=== PATIENT | female | born 1940 | race Caucasian/White ===

== ENCOUNTER 2019-11-23 00:17 | Outpatient (CLI) | payer OTHER, SELFPAY ==
[2019-11-23 18:39] LABS: SARS-CoV-2 RNA PCR Negative
== END 2019-11-23 00:18 | disposition home or self-care (01) ==
LOC: ANHCOVIDDT 00:17
PROVIDERS: PCP Internal Medicine; Visit Provider Internal Medicine Gastroenterology
DX: Z01.812 Encounter for preprocedural laboratory examination (principal); Z20.828 Contact with and (suspected) exposure to other viral communicable diseases
CPT/HCPCS: 87635; C9803; U0003

== ENCOUNTER 2019-11-25 00:29 | Day surgery (SDC) | payer OTHER, SELFPAY ==
[2019-11-18 13:40] VITALS: BMI 20.6
[2019-11-25 06:18] VITALS: BP 174/87; PULSE 76; RESP 16; TEMP 36.5; O2SAT 100; BMI 20.4
[2019-11-25] MEDS: LACTATED RINGERS 1,000 ML 150 ML IV CONT (06:44)
--- NOTE | 2019-11-25 07:03 | PM.HPGS ---
History of Present Illness History of Present Illness Consent: Risks, benefits, and alternatives have been discussed and questions answered. Patient agrees to proceed with procedure. Chief complaint: duodenal ulcer Narrative: Marilyn Stephenson is a 79 year old W female Referred for gastroscopy for follow-up of peptic ulcer disease. Patient is diagnosed with a large duodenal ulcer in June of this year. Her NSAIDs with. However she has continued Dr. in 325 mg daily. She stopped her Protonix approximately 2 months after her diagnosis so this would of been in August of this year. Patient is asymptomatic. 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 History of benign breast biopsy HLD (hyperlipidemia) HTN (hypertension) Kidney stone At 35-39 y/o Knee fracture Knee cap Osteoarthritis of foot Pulmonary embolism Skin cancer Stage 3 chronic kidney disease Wrist fracture, bilateral Surgical History Surgical History History of appendectomy History of partial thyroidectomy History of tonsillectomy Social History Social History Smoking status: Former smoker Second hand tobacco smoke exposure: No Smoking end date: 06/23/84 Alcohol intake: current Gender identity (if verbalized by the patient): Female Meds Home Medications and Allergies Home Medications Medication Instructions Recorded Confirmed Type aspirin [Ecotrin] 325 mg PO DAILY 06/14/19 11/18/19 History carbidopa-levodopa 1 tablet PO BID 06/14/19 11/18/19 History ezetimibe-simvastatin [Vytorin 1 tablet PO USEASDIRECTD 06/14/19 11/18/19 History 10-80] febuxostat [Uloric] 40 mg PO DAILY 06/14/19 11/18/19 History furosemide [Lasix] 20 mg PO DAILY 06/24/19 11/18/19 History methylprednisolone [Medrol (Corey)] See Rx Instructions .ROUTE 07/16/19 11/18/19 Rx .COMPLEX #21 each phenazopyridine [Pyridium] 100 mg PO TID PRN #3 tablet 07/16/19 11/18/19 Rx sulfamethoxazole-trimethoprim 1 tablet PO Q12H 3 Days #6 tablet 07/16/19 11/18/19 Rx [Bactrim DS] colchicine 0.6 mg PO PRN PRN 11/18/19 11/18/19 History febuxostat [Uloric] 40 mg PO USEASDIRECTD 11/18/19 11/18/19 History Allergies Allergy/AdvReac Type Severity Reaction Status Date / Time aspirin Allergy Unknown Unknown Verified 11/25/19 06:30 latex Allergy Unknown Unknown Verified 11/25/19 06:30 Vital Signs Vital Signs - 24 hr 11/25/19 06:18 Temperature 36.5 C Pulse Rate 76 Respiratory Rate 16 Blood Pressure 174/87 H Pulse Oximetry 100 Exam Const: Orientation/consciousness: patient oriented x3 Resp: Auscultation: clear to auscultation bilaterally Cardio: Rate: regular rate Rhythm: regular rhythm Heart sounds: no murmurs GI: GI Palp: Yes Soft to palpation, No Tenderness to palpation present (GI), Yes No hepatosplenomegaly present and No Palpable mass present Auscultation: normal bowel sounds Neuro: General: patient oriented x3 and no focal motor deficits Extrem: General: no pedal edema Assessment and Plan Additional Plan Gastroscopy for follow-up of peptic ulcer disease
--- NOTE | 2019-11-25 07:05 | WPDANESEPPF ---
Anes - Initial Pre Proc Eval Procedure: Operation Date: 11/25/19 07:30 Proposed Procedures p Esophagogastroduodenoscopy - Baljit Escamilla MD Date/Time: 11/25/19 07:05 Surgeon: Baljit Escamilla MD Pre Op Diagnosis: duodenal ulcer Patient Data Age: 79 Gender: F Height: 5 ft Weight: 47.5 kg Last Vital Signs Temp 97.7 F 11/25/19 06:18 Pulse 76 11/25/19 06:18 Resp 16 11/25/19 06:18 BP 174/87 H 11/25/19 06:18 Pulse Ox 100 11/25/19 06:18 Allergies Allergy/AdvReac Type Severity Reaction Status Date / Time aspirin Allergy Unknown Unknown Verified 11/25/19 06:30 latex Allergy Unknown Unknown Verified 11/25/19 06:30 Home Medications Medication Instructions Recorded Confirmed Type aspirin [Ecotrin] 325 mg PO DAILY 06/14/19 11/18/19 History carbidopa-levodopa 1 tablet PO BID 06/14/19 11/18/19 History ezetimibe-simvastatin [Vytorin 1 tablet PO USEASDIRECTD 06/14/19 11/18/19 History 10-80] febuxostat [Uloric] 40 mg PO DAILY 06/14/19 11/18/19 History furosemide [Lasix] 20 mg PO DAILY 06/24/19 11/18/19 History methylprednisolone [Medrol (Corey)] See Rx Instructions .ROUTE 07/16/19 11/18/19 Rx .COMPLEX #21 each phenazopyridine [Pyridium] 100 mg PO TID PRN #3 tablet 07/16/19 11/18/19 Rx sulfamethoxazole-trimethoprim 1 tablet PO Q12H 3 Days #6 tablet 07/16/19 11/18/19 Rx [Bactrim DS] colchicine 0.6 mg PO PRN PRN 11/18/19 11/18/19 History febuxostat [Uloric] 40 mg PO USEASDIRECTD 11/18/19 11/18/19 History Patient hx anesthesia problems: none Family hx anesthesia problems: none PMFSH Past Medical History Medical History Acute ulcer of stomach Anemia Progressively after a year of B12 injections Bladder infection CHF (congestive heart failure) 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 History of benign breast biopsy HLD (hyperlipidemia) HTN (hypertension) Kidney stone At 35-39 y/o Knee fracture Knee cap Osteoarthritis of foot Pulmonary embolism Skin cancer Stage 3 chronic kidney disease Wrist fracture, bilateral Surgical History Surgical History History of appendectomy History of partial thyroidectomy History of tonsillectomy Social History Social History Smoking status: Former smoker Second hand tobacco smoke exposure: No Smoking end date: 06/23/84 Alcohol intake: current Gender identity (if verbalized by the patient): Female Anes - Eval Final PreProcedure Day of Procedure 11/25/19 07:05 Patient weight: normal Heart: regular rate and rhythm Lungs: clear to auscultation Airway: Mallampati scale class II Neurological: alert and oriented Last oral intake: >/= 8 hours ASA classification: III Emergent: no Anesthetic plan: proceed Anesthesia type and monitoring: general GIVS and standard monitoring Informed Consent: The patient's anesthetic plan and its attendant risks and benefits were discussed with the patient/family/POA. Questions were solicited and answers provided to the satisfaction of the patient/family/POA.
[2019-11-25 07:45] VITALS: BP 148/80; PULSE 85; RESP 17; O2SAT 100
[2019-11-25 07:55] VITALS: BP 148/78; PULSE 73; RESP 16; O2SAT 100
[2019-11-25 07:59] VITALS: BP 156/82; PULSE 80; RESP 16; O2SAT 99
== END 2019-11-25 08:16 | disposition home or self-care (01) ==
PROVIDERS: PCP Internal Medicine; Visit Provider Internal Medicine Gastroenterology
PROC: 0DJ08ZZ Inspection of Upper Intestinal Tract, Via Natural or Artificial Opening Endoscopic (ICD-10-PCS; CPT 43235; principal; 2019-11-25 07:30)
DX: Z09 Encounter for follow-up examination after completed treatment for conditions other than malignant neoplasm (principal); K26.7 Chronic duodenal ulcer without hemorrhage or perforation; K29.30 Chronic superficial gastritis without bleeding; I50.9 Heart failure, unspecified; E78.5 Hyperlipidemia, unspecified; I13.0 Hypertensive heart and chronic kidney disease with heart failure and stage 1 through stage 4 chronic kidney disease, or unspecified chronic kidney disease; N18.3 Chronic kidney disease, stage 3 (moderate); Z86.711 Personal history of pulmonary embolism; Z79.82 Long term (current) use of aspirin; Z87.891 Personal history of nicotine dependence
CPT/HCPCS: 43239; 88305; 88342; J2001; J2704; J7120

== ENCOUNTER 2021-02-12 13:02 | Outpatient (CLI) | payer OTHER, SELFPAY | END 2021-02-12 13:03 | disposition home or self-care (01) | LOC: ANHAUDASC 13:04 | PROVIDERS: PCP Internal Medicine; Visit Provider Internal Medicine | DX: H90.3 Sensorineural hearing loss, bilateral (principal) | CPT/HCPCS: 92557; 92567 ==

== ENCOUNTER 2021-03-07 13:30 | Emergency (ER) | payer OTHER, SELFPAY ==
--- NOTE | ~2021-03-07 | XR_ITS ---
EXAMINATION: XR femur LT min 2V EXAM DATE: 03/07/2021 15:47 INDICATION: Fall, left lateral femur pain/swelling. TECHNIQUE: Left femur frontal and lateral projections of the proximal aspect, frontal and lateral pro jections of the lower aspect for review. Correlation is made to pelvic x-ray 06/01/2019. FINDINGS: There are no acute left femur fractures or dislocations identified. There is no subcutaneo us gas. Soft tissue swelling/hematoma along the lateral aspect of the thigh subcutaneous fat. Scatte red femoral arterial sclerosis. There is mild to moderate left hip primary osteoarthritis. There are no radiopaque foreign bodies. IMPRESSION: 1. Left femur exam without acute osseous findings. 2. Soft tissue swelling. Reviewed, dictated and finalized at location B.
--- NOTE | 2021-03-07 15:29 | ED.LOWEXIN ---
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 History of benign breast biopsy HLD (hyperlipidemia) HTN (hypertension) Kidney stone At 35-39 y/o Knee fracture Knee cap Osteoarthritis of foot Pulmonary embolism Skin cancer Stage 3 chronic kidney disease Wrist fracture, bilateral Surgical History Surgical History History of appendectomy History of partial thyroidectomy History of tonsillectomy Social History Social History Smoking status: Former smoker Second hand tobacco smoke exposure: No Smoking end date: 06/23/84 Alcohol intake: current Alcohol use details: Glass of wine per day Gender identity (if verbalized by the patient): Female MDM - Extremity Injury (Lower) Imaging Data Attestation: I personally reviewed and interpreted this imaging study as follows: My impression: soft tissue swelling, no fracture of left femur Radiologist's impression: Sign [facility] [place] [address] [phone] XRay ReportSigned Patient: Marilyn Stephenson RDOB: 1940MR#: [id number]/Sex: 80 / FAcct:[id number]: EXPGLEN ADM Date: 03/07/21Attending Dr: Ordering Physician: Herminia Hughes APN Date of Service: 03/07/21 Procedure(s): XR femur LT min 2V Accession Number(s): [id number] cc: Armando Higgins MD; Herminia Hughes APN~ EXAMINATION: XR femur LT min 2V EXAM DATE: 03/07/2021 15:47 INDICATION: Fall, left lateral femur pain/swelling. TECHNIQUE: Left femur frontal and lateral projections of the proximal aspect, frontal and lateral projections of the lower aspect for review. Correlation is made to pelvic x-ray 06/01/2019. FINDINGS: There are no acute left femur fractures or dislocations identified. There is no subcutaneous gas. Soft tissue swelling/hematoma along the lateral aspect of the thigh subcutaneous fat. Scattered femoral arterial sclerosis. There is mild to moderate left hip primary osteoarthritis. There are no radiopaque foreign bodies. IMPRESSION: 1. Left femur exam without acute osseous findings. 2. Soft tissue swelling. Reviewed, dictated and finalized at location B. Dictated By: Oneal Greene MD 03/07/21 1548 Signed By: <Electronically signed by Oneal Greene MD in OV> Critical Care Time Critical Care Time Critical Care Time: No Discharge Plan Discharge Clinical Impression: Skin tear Traumatic hematoma of left thigh Qualifiers: Encounter type: initial encounter Qualified Code(s): S70.12XA - Contusion of left thigh, initial encounter Skin tear of left forearm without complication Qualifiers: Encounter type: initial encounter Qualified Code(s): S51.812A - Laceration without foreign body of left forearm, initial encounter Patient Disposition: Home, Self-Care Condition: Stable Instructions: Skin Tear (ED), Hematoma (ED) Additional Instructions: keep the area clean and dry No continuous water contact like dishes or swimming Cleanse wounds Hibiclens or liquid Dial soap once daily Bacitracin antibiotic ointment to the wound area cover with Telfa dressing of choice over Telfa watch for infection--redness, swelling, drainage follow up with PCP for wound assessm
--- NOTE | 2021-03-07 15:55 | PC.NURSE ---
See downtime documentation for nurses notes etc.
== END 2021-03-07 15:46 | disposition home or self-care (01) ==
PROVIDERS: Emergency Provider Registered Nurse; PCP Internal Medicine
DX: S51.812A Laceration without foreign body of left forearm, initial encounter (principal); S70.12XA Contusion of left thigh, initial encounter; I13.0 Hypertensive heart and chronic kidney disease with heart failure and stage 1 through stage 4 chronic kidney disease, or unspecified chronic kidney disease; N18.30 Chronic kidney disease, stage 3 unspecified; I50.9 Heart failure, unspecified; Z87.891 Personal history of nicotine dependence; W18.30XA Fall on same level, unspecified, initial encounter
CPT/HCPCS: 73552; 99213; G0463

== ENCOUNTER 2021-05-02 12:50 | Outpatient (CLI) | payer OTHER, SELFPAY ==
--- NOTE | ~2021-05-02 | MR_ITS ---
EXAMINATION: MR lumbar spine wo con DATE: 05/02/2021 13:50 INDICATION: Lumbar radiculopathy. TECHNIQUE: Magnetic resonance imaging (MRI) of the lumbar spine was performed without intravenous con trast. Sequences included sagittal T2-weighted FSE, sagittal T2-weighted FS FSE, sagittal T1-weighted FSE, and axial T2-weighted FSE. COMPARISON: Lumbar spine MRI 12/27/2017 FINDINGS: There is 16 degrees levoscoliosis of lumbar spine. There is 3 mm retrolisthesis of L2 on L3 and 3 mm anterolisthesis of L3 on L4. There are Schmorl's nodes at multiple levels. There is moderat yasmeen decreased disc height at T12-L1, severely decreased disc height at L1-L2 and L2-L3, moderately de creased disc height at L3-L4, and severely decreased disc height at L4-L5 and L5-S1 with endplate rem odeling. There is ligamentum flavum hypertrophy at the disc levels in lumbar spine. The distal spinal cord signal intensity is normal. The conus medullaris is at L1. The following disc levels are specif ically discussed: T12-L1: The disc is bulging. There is no facet joint osteoarthritis. There is mild bilateral neural f oraminal stenosis. There is mild central canal stenosis. L1-L2: The disc is bulging and has an annular fissure. There is mild left facet joint osteoarthritis. There is mild right and moderate left neural foraminal stenosis. There is mild central canal stenosi s. L2-L3: The disc is bulging. There is moderate right and mild left facet joint osteoarthritis. There i s mild right and moderate left neural foraminal stenosis. There is mild central canal stenosis. L3-L4: The disc is bulging and has an annular fissure. There is severe bilateral facet joint osteoart hritis. There is mild bilateral neural foraminal stenosis. There is mild central canal stenosis. L4-L5: The disc is bulging and has an annular fissure. There is severe bilateral facet joint osteoart hritis. There is moderate bilateral neural foraminal stenosis. There is mild central canal stenosis. L5-S1: The disc is bulging and has an annular fissure. There is moderate bilateral facet joint osteoa rthritis. There is mild bilateral neural foraminal stenosis. There is mild central canal stenosis. IMPRESSION: 1. Severe lumbar spondylosis, worsened from 12/27/2017. 2. Lumbar levoscoliosis. Reviewed, dictated and finalized at location A. [employer]OC[employer]ATE
== END 2021-05-02 12:51 | disposition home or self-care (01) ==
PROVIDERS: PCP Internal Medicine
DX: M47.26 Other spondylosis with radiculopathy, lumbar region (principal)
CPT/HCPCS: 72148

== ENCOUNTER 2021-11-12 07:54 | Outpatient (CLI) | payer OTHER, SELFPAY ==
--- NOTE | ~2021-11-12 | US_ITS ---
US renal BI 11/12/2021 08:58 Procedure: Realtime transabdominal ultrasound of the kidneys and bladder. Indication: Chronic kidney disease Comparison: CT dated 05/20/2019 Findings: Renal echotexture is normal bilaterally without hydronephrosis, contour deforming mass or r enal calculus. The right kidney measures 7.8 cm and left kidney measures 8.7 cm. Bladder within norm al limits. There is a complex partially cystic mass of the uterus. Dedicated pelvic ultrasound recomm ended for further assessment. Impression: 1: Unremarkable renal ultrasound. No stones, masses or hydronephrosis. 2: Complex partially cystic mass of the uterus. Cannot exclude malignancy. Recommend dedicated pelvic ultrasound for complete evaluation. Reviewed, dictated and finalized at location A. Impression: 1: Unremarkable renal ultrasound. No stones, masses or hydronephrosis. 2: Complex partially cystic mass of the uterus. Cannot exclude malignancy. Davi mmend dedicated pelvic ultrasound for complete evaluation.
[2021-11-12 09:16] LABS: Albumin Level 4.4 g/dL (3.5-5.1); Anion Gap 11 mmol/L (8-16); Blood Urea Nitrogen 34 mg/dL (7-17); Calcium 8.6 mg/dL (8.4-10.2); Carbon Dioxide 13 mmol/L (22-30); Chloride 113 mmol/L (98-107); Estimated Glomerular Filt Rate 43; Glucose 107 mg/dL (65-110); Phosphorus 4.9 mg/dL (2.5-4.5); Sodium 137 mmol/L (137-145)
[2021-11-12 09:16] LABS: Creatinine Urine 47.8 mg/dL; Total Protein Urine Random 20 mg/dL; Ur Ttl Prot Creatinine Ratio 0.42 mg/mg (0-0.20)
[2021-11-12 09:18] LABS: Sodium Urine Random 74 meq/L
[2021-11-12 09:28] LABS: Complement C3 113 mg/dL (88-165)
[2021-11-14 16:15] LABS: Albumin 4.1 g/dL (3.8-4.8); Alpha 1 Globulin 0.3 g/dL (0.2-0.3); Beta 1 Globulin 0.4 g/dL (0.4-0.6); Gamma Globulin 0.8 g/dL (0.8-1.7)
[2021-11-15 17:10] LABS: Anti Glomerular Basement Memb <1.0 AI (<1.0)
[2021-11-16 05:07] LABS: Total Protein/Creatinine Ratio 617 mg/g creat (21-161)
[2021-11-19 07:45] LABS: Anti Nuclear Antibody Titer 1:40 (Negative)
[2021-11-21 22:45] LABS: ANCA Screen Negative (Negative)
== END 2021-11-12 07:55 | disposition home or self-care (01) ==
PROVIDERS: PCP Family Medicine; Visit Provider Internal Medicine Nephrology
DX: N18.32 Chronic kidney disease, stage 3b (principal); D63.1 Anemia in chronic kidney disease
CPT/HCPCS: 36415; 76775; 80069; 82570; 83520; 84155; 84156; 84165; 84166; 84300; 86036; 86038; 86039; 86160; 86225

== ENCOUNTER 2021-11-27 16:03 | Outpatient (CLI) | payer OTHER, SELFPAY ==
--- NOTE | ~2021-11-27 | US_ITS ---
EXAMINATION: US pelvic complete w TV DATE: 11/27/2021 16:56 INDICATION: Pelvic mass. Comparison:No prior studies for comparison. TECHNIQUE: Multiple transabdominal and endovaginal sonographic images of the pelvis performed. FINDINGS: The uterus measures 10 x 4.5 x 6 cm. There is complex fluid and soft tissue masses along th e expected margin of the endometrium which is poorly defined. The ovaries are not visualized. No significant free fluid in the pelvis. There is no free fluid in the pelvis. There are no abnormal masses seen on either side. IMPRESSION: 1. Complex appearance to the endometrium containing fluid and multiple marginal masses. The different ial diagnosis includes polyps and carcinoma. Biopsy is recommended. Reviewed, dictated and finalized at location B. IMPRESSION: 1. Complex appearance to the endometrium containing fluid and multiple marginal masses. The differential diagnosis includes polyps and carcinoma. Biopsy is recommended.
== END 2021-11-27 16:04 | disposition home or self-care (01) ==
PROVIDERS: PCP Family Medicine; Visit Provider Internal Medicine Nephrology
DX: R19.00 Intra-abdominal and pelvic swelling, mass and lump, unspecified site (principal)
CPT/HCPCS: 76830; 76856

== ENCOUNTER 2022-01-11 00:52 | Day surgery (SDC) | payer OTHER, SELFPAY ==
--- NOTE | 2022-01-04 14:25 | PC.NURSE ---
Report to the Outpatient Waiting Room, entrance under the green pavilion located off [facility], at time 1000 on date 01/11/22 . [place] Time: _1200 . - You and your visitor will be asked a series of questions to screen for COVID 19 for your protection. - Only one visitor is allowed at this time. - The patient visitor is requested to leave or wait in car when not with patient. - A mask is required within the hospital. Patients may have clear liquids (water, carbonated beverages, clear teas, apple juice) until 3 hours prior to surgery with a maximum of 20 ounces. - No food from midnight until time of surgery - Infants may have breast milk until 4 hours before surgery, infant formula 6 hours prior to surgery. - Children will be allowed to drink immediately following surgery. If applicable, please bring a bottle or sippy cup to assist with drinking. Juice, water, soda, and popsicles are readily available. For infants on formula, please bring formula the day of surgery. Pacifiers are allowed. Take the following medications with a SIP of water the morning of surgery: __CARBIDOPA-LEVODOPA Medications to discontinue per physician NONE Date to take last dose Please no make-up, nail bulgarian, hairspray, perfume, deodorant, or body powder the day of surgery. No jewelry (including any body piercings) or valuables the day of surgery, leave them at home. Please take a shower or bath the night before, or the morning of, surgery with an antibacterial soap. Wear comfortable, loose fitting clothing. Children are encouraged to wear pajamas. - Jewelry must be removed prior to entering the operating room. Rings and piercings that are not removed may be cut off. - The hospital will not accept responsibility for valuables. - Please leave all valuables, including medications, at home the day of surgery. If you are going home after surgery, a licensed transportation driver must drive you home. - NO public transportation without another adult. - We recommend that an adult stay with you for 24 hours following discharge. - We also recommend that you do not drive, make important decision, drink alcoholic beverages, or take any drugs that were not prescribed by your health care provider for at least 24 hours after your discharge time. For Pediatric surgeries, we recommend two adults accompany the child home (only one inside the building at this time). Follow any additional instructions given to you from your surgeon. If you or anyone in your household have experienced Covid symptoms in the past week, please notify your surgeon or the nurse liaison at the phone number below for possible testing. Telephone instructions given to _PATIENT and asked if any additional questions and then verbalized understanding. Patient advised to call surgeon office or pre surgery nurse liaison [phone] if any additional questions.
[2022-01-04 14:33] VITALS: BMI 21.1
--- NOTE | 2022-01-10 16:47 | PM.IMHP ---
H&P: HPI History of Present Illness Date/Time: 01/10/22 16:47 Chief Complaint: PMB Narrative: Marilyn is a postmenopausal 81-year-old female who presented to see Dr. Santana for evaluation of an abnormal finding on BELL VALET ultrasound. The BELL VALET US was a follow-up from a renal ultrasound. On BELL VALET ultrasound it was noted that she has a complex appearance to the endometrium containing fluid and multiple marginal masses with a differential diagnosis including polyps or carcinoma. She does report that she had a hysteroscopy with polypectomy in the past, denies a h/o endometrial ablation. She denies pain or vaginal bleeding. 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 History of benign breast biopsy HLD (hyperlipidemia) HTN (hypertension) Kidney stone At 35-39 y/o Knee fracture Knee cap Osteoarthritis of foot Pulmonary embolism Skin cancer Stage 3 chronic kidney disease Wrist fracture, bilateral Surgical History Surgical History History of appendectomy History of partial thyroidectomy History of tonsillectomy Social History Social History Smoking packs per day: 2.5 Smoking cigarettes per day: 50.0 Years smoked: 22 Smoking pack-years: 55.00 Smoking status: Former smoker Tobacco type: cigarettes Second hand tobacco smoke exposure: No Smoking end date: 06/23/79 Alcohol intake: current Drinks per week: 7 Alcohol use details: WINE Substance use: never Substance use type: does not use Additional living arrangements comments: Gender identity (if verbalized by the patient): Female Sexual Orientation (if Verbalized by the Patient): Straight or Heterosexual Spiritual care concerns: No Meds Home Medications and Allergies Home Medications Medication Instructions Recorded Confirmed Type allopurinol 300 mg tablet 300 mg PO DAILY #90 tabs 10/23/20 01/04/22 Rx carbidopa 25 mg-levodopa 100 mg 1 tablet PO BID #180 tabs 10/05/21 01/04/22 Rx tablet furosemide 20 mg tablet 20 mg PO QAM 12/12/21 01/04/22 History colchicine 0.6 mg tablet 0.6 mg PO PRN PRN GOUT FLARE UP 01/04/22 01/04/22 History ezetimibe 10 mg-simvastatin 80 mg 1 tablet PO EVERY OTHER DAY 01/04/22 01/04/22 History tablet (Vytorin) Allergies Allergy/AdvReac Type Severity Reaction Status Date / Time aspirin Allergy Mild stomach Verified 01/07/22 08:35 pain latex Allergy Mild rash Verified 01/07/22 08:35 Exam Const: General: cooperative, comfortable and no acute distress Nutritional Appearance: obese Resp: Effort & Inspection: normal respiratory effort Cardio: Rate: regular rate GI: Inspection: normal to inspection GI Palp: No abdominal tenderness and Yes Soft to palpation : Other: deferred to OR Skin: General skin exam: normal color Neuro: General: patient oriented x3 Extrem: General: normal to inspection Psych: Appearance: grossly normal Affect: normal affect Attitude: cooperative Assessment and Plan Assessment and plan (1) Endometrial thickening on ultrasound: Code(s): R93.89 - Abnormal findings on diagnostic imaging of other specified body structures Status: Acute Plan - Proceed with hysteroscopy with dilation and curettage - Risks and benefits explained in detail and all questions answered.
[2022-01-11] VITALS (11 sets, daily range): BP systolic 84–204; BP diastolic 42–113; PULSE 73–96; RESP 11–22; TEMP 36.2–36.7; O2SAT 91–100
[2022-01-11] MEDS: ACETAMINOPHEN 500 MG TABLET 1000 MG PO (10:39)
[2022-01-11] MEDS: SODIUM CHLORIDE 0.9% IV 500 ML 30 ML IV CONT (10:55)
--- NOTE | 2022-01-11 11:25 | WPDANESEPPF ---
Anes - Initial Pre Proc Eval Procedure: Operation Date: 01/11/22 12:00 Proposed Procedures p Hysteroscopy Dilation and Curettage - Alaina Edmonds MD Date/Time: 01/11/22 11:25 Surgeon: Alaina Edmonds MD Pre Op Diagnosis: endometrial hyperplasia Patient Data Age: 81 Gender: F Height: 1.52 m Weight: 50 kg Last Vital Signs Temp 36.2 C L 01/11/22 11:07 Pulse 85 01/11/22 11:07 Resp 16 01/11/22 11:07 BP 155/99 H 01/11/22 11:07 Pulse Ox 100 01/11/22 11:07 O2 Del Method Room Air 01/11/22 11:07 Allergies Allergy/AdvReac Type Severity Reaction Status Date / Time aspirin Allergy Mild stomach Verified 01/11/22 10:27 pain latex Allergy Mild rash Verified 01/11/22 10:27 Home Medications Medication Instructions Recorded Confirmed Type allopurinol 300 mg tablet 300 mg PO DAILY #90 tabs 10/23/20 01/11/22 Rx carbidopa 25 mg-levodopa 100 mg 1 tablet PO BID #180 tabs 10/05/21 01/11/22 Rx tablet furosemide 20 mg tablet 20 mg PO QAM 12/12/21 01/11/22 History colchicine 0.6 mg tablet 0.6 mg PO PRN PRN GOUT FLARE UP 01/04/22 01/04/22 History ezetimibe 10 mg-simvastatin 80 mg 1 tablet PO EVERY OTHER DAY 01/04/22 01/11/22 History tablet (Vytorin) Laboratory Tests 01/11/22 10:33 PT Pending INR Pending APTT Pending Patient hx anesthesia problems: none Family hx anesthesia problems: none Results Review: All pre-operative results and documents have been reviewed as part of the pre-operative evaluation. 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 History of benign breast biopsy HLD (hyperlipidemia) HTN (hypertension) Kidney stone At 35-40 y/o Knee fracture Knee cap Osteoarthritis of foot Pulmonary embolism Skin cancer Stage 3 chronic kidney disease Wrist fracture, bilateral Surgical History Surgical History History of appendectomy History of partial thyroidectomy History of tonsillectomy Social History Social History Smoking packs per day: 2.5 Smoking cigarettes per day: 50.0 Years smoked: 22 Smoking pack-years: 55.00 Smoking status: Former smoker Tobacco type: cigarettes Second hand tobacco smoke exposure: No Smoking end date: 06/23/84 Alcohol intake: current Drinks per week: 7 Alcohol use details: Glass of wine per day Substance use: never Substance use type: does not use Living arrangements: with family Additional living arrangements comments: Gender identity (if verbalized by the patient): Female Sexual Orientation (if Verbalized by the Patient): Straight or Heterosexual Spiritual care concerns: No Anes - Eval Final PreProcedure Day of Procedure 01/11/22 11:25 Patient weight: normal Heart: regular rate and rhythm Lungs: decreased breath sounds Airway: Mallampati scale class III Neurological: other (alert) Last oral intake: >/= 8 hours ASA classification: III Emergent: no Anesthetic plan: proceed Anesthesia type and monitoring: general GIVS and standard monitoring Results Review: All pre-operative results and documents have been reviewed as part of the pre-operative evaluation. Informed Consent: The patient's anesthetic plan and its attendant risks and benefits were discussed with the patient/family/POA. Questions were solicited and answers provided to the satisfaction of the patient/family/POA.
--- NOTE | 2022-01-11 11:41 | WPDHPUPDATE1 ---
History and Physical Update Update Date/Time: 01/11/22 11:41 History and Physical has been reviewed, including an updated exam of the patient. There are NO changes in the patient's condition. Risks, benefits, and alternatives have been discussed and questions answered. Patient agrees to proceed with procedure.
[2022-01-11 11:52] LABS: INR 0.9; Prothrombin Time 12.2 Seconds (11.1-14.7)
[2022-01-11 11:53] LABS: Partial Thromboplastin Time 28.3 SECONDS (22.3-36.8)
--- NOTE | 2022-01-11 12:33 | SUR.OPER ---
culture given to BRAULIO Corley. Received in lab by Elva at [phone]
--- NOTE | 2022-01-11 13:22 | W.PM.PROC2 ---
Procedure Note - Detailed Date of Procedure 01/11/22 Pre-op Diagnosis Thickened endometrial lining on US Post-op Diagnosis Other (endometrial mass, uterine pyometra) Procedure Performed Hysteroscopy with D&C Surgeon Alaina Edmonds MD Anesthesia MAC Indications Marilyn is a postmenopausal 81yo who was undergoing imaging of her kidneys and was subsequently diagnosed with complex, thickened endometrial lining with fluid noted. Findings Uterus 8cm, cervix with hardening/friable mass from 10-2o'clock, purulent discharge noted after cervical dilation (culture sent), ~ 15cc of purulent fluid noted, endometrial cavity with thickened/polypoid mass noted; unable to visualized the fundus or tubal ostia. After gentle D&C, perforation noted, no bleeding or nearby omentum/bowel noted. Pt stable and decision was made to admit overnight for monitoring. Fluid deficit 30cc Description of Procedure Marilyn was taken to the operating room where she was placed under sedation without complications. She was then prepped and draped in the usual sterile fashion in the dorsal lithotomy position with her legs in low Sami stirrups. A time-out was performed and no preoperative antibiotics were indicated. A small bivalve speculum was placed in the vagina where the cervical changes were noted. The posterior lip of the cervix was grabbed with a single-tooth tenaculum. The uterus was sounded to 8 cm. The cervix was then easily and slowly dilated to allow for the hysteroscope. A significant amount of purulent discharge was then noted coming out of the uterus. A culture was collected. The small hysteroscope was advanced into the uterine cavity where polypoid mass was noted with small calcifications. No normal cavity architecture was noted and the bilateral tubal ostia were not visualized. Using a small curettage I gently palpated all areas of the uterus and had good resistance. A gentle curettage was performed, filling half a telfa. The curettage was removed from the uterus. The hysteroscope was once again advanced into the uterus which at this point I noticed yellow fat, and determined that uterine perforation had occurred. I examined the area and no bleeding was noted and no omentum or intestines or bladder were near the area of perforation. Her vitals remained stable and I decided that she would be placed in observation overnight. Sponge, lap, instrument, needle counts were correct at the end the procedure patient was awoken from anesthesia and taken to recovery in stable condition. Her was informed of the findings as well as the concern for uterine perforation due to necrotic or infected tissue which makes me concerned for a malignancy. We will keep her overnight with plans of antibiotic therapy and watching her hemoglobin counts. Estimated Blood Loss 5 Drains No Packing No Pathology Yes (rushed) Complications No immediate complications Condition Stable Disposition Observation [facility] Billing Surgery - Charge Forward: Surgery Billing
[2022-01-11] MEDS: fentaNYL CITRATE INJ (*CRX) 100 MCG/2 ML VIAL 25 MCG IV PUSH ×4 (13:27→13:55)
[2022-01-11] MEDS: hydrALAZINE HCL 20 MG/ML VIAL 5 MG IV PUSH (13:50)
[2022-01-11] MEDS: oxyCODONE HCL (*CRX) 5 MG TAB IR PO ×2 (15:00→21:16)
[2022-01-11] MEDS: ONDANSETRON INJ 4 MG/2 ML VIAL IV PUSH (15:00)
[2022-01-11 15:01] LABS: Hematocrit 40.6 % (37.0-47.0); Hemoglobin 12.7 g/dL (12.0-15.0); Mean Corpuscular HGB Conc 31.3 g/dl (32-36); Mean Corpuscular Hemoglobin 32.6 pg (26-34); Mean Corpuscular Volume 104.4 fl (80-100); Mean Platelet Volume 10.3 fl (7.4-10.4); Platelet Count Result 146 k/mm3 (150-375); Red Blood Count 3.89 M/mm3 (4.2-5.4); Red Cell Distribution Width 15.3 % (11.5-14.5)
[2022-01-11] MEDS: CARBIDOPA/LEVODOPA 25/100 MG TABLET 1 TABLET PO (19:00)
[2022-01-11] MEDS: AMOXICILLIN/CLAVULANATE K 875-125 MG TAB 1 TABLET PO (21:17)
[2022-01-12 03:45] VITALS: BP 100/47; PULSE 90; RESP 16; TEMP 37.1; O2SAT 91
[2022-01-12 05:19] LABS: Basophils Percent Auto 0.3 % (0.2-1.2); Eosinophils Absolute Auto 0.1 K/mm3 (0-0.3); Eosinophils Percent Auto 0.5 % (0-4.4); Hematocrit 34.1 % (37.0-47.0); Hemoglobin 10.6 g/dL (12.0-15.0); Immature Granulocyte Absolute 0.08 K/mm3 (0.00-0.031); Immature Granulocyte Percent A 0.5 % (0-0.5); Lymphocytes Absolute Auto 1.01 K/mm3 (0.9-3.2); Lymphocytes Percent Auto 6.8 % (18.3-44.2); Mean Corpuscular HGB Conc 31.1 g/dl (32-36); Mean Corpuscular Hemoglobin 32.2 pg (26-34); Mean Corpuscular Volume 103.6 fl (80-100); Mean Platelet Volume 10.3 fl (7.4-10.4); Monocytes Absolute Auto 0.9 K/mm3 (0.1-0.6); Monocytes Percent Auto 6.3 % (2.6-8.5); Neutrophils Absolute Auto 12.8 K/mm3 (1.3-6.7); Neutrophils Percent Auto 85.6 % (45.5-73.1); Platelet Count Result 142 k/mm3 (150-375); Red Blood Count 3.29 M/mm3 (4.2-5.4); Red Cell Distribution Width 15.5 % (11.5-14.5); White Blood Count 14.9 K/mm3 (4.5-10.0)
[2022-01-12 05:34] LABS: Anion Gap 5 mmol/L (8-16); Blood Urea Nitrogen 37 mg/dL (7-17); Calcium 8.8 mg/dL (8.4-10.2); Carbon Dioxide 26 mmol/L (22-30); Chloride 104 mmol/L (98-107); Estimated CRCL calculation 18 ml/min; Estimated Glomerular Filt Rate 31; Glucose 122 mg/dL (65-110); Potassium 4.3 mmol/L (3.4-5.0); Sodium 135 mmol/L (137-145)
[2022-01-12] MEDS: FUROSEMIDE 20 MG TABLET PO (06:53)
[2022-01-12] MEDS: DOCUSATE SODIUM 100 MG CAPSULE PO (06:53)
[2022-01-12] MEDS: AMOXICILLIN/CLAVULANATE K 875-125 MG TAB 1 TABLET PO (06:53)
[2022-01-12] MEDS: EZETIMIBE 10 MG TABLET PO (06:54)
[2022-01-12] MEDS: CARBIDOPA/LEVODOPA 25/100 MG TABLET 1 TABLET PO (06:54)
[2022-01-12] MEDS: oxyCODONE HCL (*CRX) 5 MG TAB IR PO (06:54)
[2022-01-12] MEDS: SIMVASTATIN 20 MG TABLET 80 MG PO (06:54)
[2022-01-12] MEDS: allopurinoL 300 MG TABLET PO (06:55)
[2022-01-12 06:58] VITALS: BP 92/60; PULSE 89; RESP 16; TEMP 36.8; O2SAT 93
--- NOTE | 2022-01-12 08:53 | PM.GYNPNOP ---
CHEMICAL TECHNICIAN - A/P Postoperative Procedures: Procedures Operation Date: 01/11/22 12:00 Actual Procedure Side Surgeon p Hysteroscopy Dilation and Curettage Alaina Edmonds MD Postoperative day: 1 Postoperative status: doing well Postoperative plan: routine post-op care and discharge Time Spent With Patient Time: Total time spent is greater than 50% in coordination of care (as documented) at patient's floor/unit and/or counseling patient: Time with patient: less than 15 minutes CHEMICAL TECHNICIAN- PN:Subj Post-Op Subjective Date/time seen: 01/12/22 08:53 Interval history: Marilyn reports feeling much better today. She still has some pain, feels tender . She reports the vaginal bleeding is light. She has tolerated diet, has a good appetite. She has voided, unsure if she's passed gas. Ambulated w/o issue. Ready to go home. Review of Systems Constitutional: Constitutional: Denies chills, Denies fever(s) and Denies headache(s) ENT: Denies dizziness and Denies headache(s) Cardiovascular: Cardiovascular: Denies chest pain, Denies palpitations and Denies dyspnea Respiratory: Respiratory: Denies cough and Denies dyspnea Gastrointestinal: Gastrointestinal: Denies nausea and Denies vomiting Neurologic: Denies dizziness and Denies headache(s) Endocrine: Endocrine: Denies palpitations Exam Const: General: cooperative, healthy appearing, comfortable and no acute distress Orientation/consciousness: patient oriented x3 Resp: Effort & Inspection: normal respiratory effort Auscultation: clear to auscultation bilaterally Cardio: Rate: regular rate GI: Inspection: non-distended GI Palp: Yes abdominal tenderness (appropriate) and Yes Soft to palpation Auscultation: normal bowel sounds Neuro: General: patient oriented x3 Extrem: General: normal to inspection Psych: Appearance: grossly normal Affect: normal affect Attitude: cooperative CHEMICAL TECHNICIAN - PN: Obj Data Vital Signs Vital Signs: Vital Signs - 24 hr 01/11/22 11:07 01/11/22 12:47 01/11/22 13:00 Temperature 97.2 F L 97.7 F Pulse Rate 85 80 76 Respiratory Rate 16 16 22 H Blood Pressure 155/99 H 175/105 H 190/88 H Pulse Oximetry 100 100 99 Oxygen Delivery Room Air Room Air Room Air 01/11/22 13:15 01/11/22 13:30 01/11/22 13:45 Temperature Pulse Rate 84 88 82 Respiratory Rate 12 11 L 12 Blood Pressure 196/88 H 204/113 H 184/97 H Pulse Oximetry 100 100 100 Oxygen Delivery Room Air Room Air Room Air 01/11/22 14:00 01/11/22 14:30 01/11/22 14:15 Temperature 97.5 F L Pulse Rate 76 73 73 Respiratory Rate 14 16 16 Blood Pressure 196/84 H 132/98 H Pulse Oximetry 98 99 99 Oxygen Delivery Room Air Room Air 01/11/22 20:00 01/11/22 23:45 01/12/22 03:45 Temperature 98.1 F 98.0 F 98.8 F Pulse Rate 96 90 90 Respiratory Rate 16 16 16 Blood Pressure 88/56 L 84/42 L 100/47 L Pulse Oximetry 94 91 91 Oxygen Delivery 01/12/22 06:58 01/12/22 06:58 Temperature 98.3 F Pulse Rate 89 Respiratory Rate 16 Blood Pressure 92/60 L Pulse Oximetry 93 Oxygen Delivery Room Air Intake/Output Intake/Output: Intake & Output 01/09/22 01/10/22 01/11/22 01/12/22 23:59 23:59 23:59 23:59 Intake Total 200 Output Total 200 Balance 0 Meds/Results Medications: Active Medications Generic Name Dose Route Start Last Admin Trade Name Miya PRN Reason Stop Dose Admin Acetaminophen 1,000 mg 01/11/22 14:13 Acetaminophen 500 Mg Tablet PO Q6H PRN Mild Pain (1-3) or Fever Allopurinol 300 mg 01/12/22 09:00 01/12/22 06:55 Allopurinol 300 Mg Tablet PO 300 mg DAILY ANABELA Administration Amoxicillin/Clavulanate Potassium 1 tablet 01/11/22 21:00 01/12/22 06:53 Amoxicillin/Clavulanate K 875-125 Mg Tab PO 01/18/22 20:59 1 tablet Q12HR ANABELA Administration Carbidopa/Levodopa 1 tablet 01/11/22 17:00 01/12/22 06:54 Carbidopa/Levodopa 25/100 Mg Tablet PO 1 tablet BID ANABELA Administration Colchicine 0.6 mg 01/11/22 14
== END 2022-01-12 09:36 | disposition home or self-care (01) ==
LOC: ANHSURGERY 10:02 → ANHOB2 14:15
PROVIDERS: PCP Family Medicine; Visit Provider Obstetrics & Gynecology
PROC: 0U5B8ZZ Destruction of Endometrium, Via Natural or Artificial Opening Endoscopic (ICD-10-PCS; CPT 58563; principal; 2022-01-11 12:00)
DX: D39.0 Neoplasm of uncertain behavior of uterus (principal); N71.9 Inflammatory disease of uterus, unspecified; N99.71 Accidental puncture and laceration of a genitourinary system organ or structure during a genitourinary system procedure; E78.5 Hyperlipidemia, unspecified; I13.0 Hypertensive heart and chronic kidney disease with heart failure and stage 1 through stage 4 chronic kidney disease, or unspecified chronic kidney disease; I50.9 Heart failure, unspecified; N18.30 Chronic kidney disease, stage 3 unspecified; D64.9 Anemia, unspecified; Z86.711 Personal history of pulmonary embolism; Z87.891 Personal history of nicotine dependence; Z87.11 Personal history of peptic ulcer disease
CPT/HCPCS: 58558; 36415; 80048; 85025; 85027; 85610; 85730; 87070; 87075; 87205; 88305; 88342; 99199; A9270; J0360; J2405; J2704; J3010; J7030; J7040

== ENCOUNTER 2022-04-12 16:30 | Inpatient (IN) | payer OTHER, SELFPAY ==
[2022-04-12] VITALS (16 sets, daily range): BP systolic 85–179; BP diastolic 51–140; PULSE 82–97; RESP 14–24; TEMP 36.6–36.8; O2SAT 97–100; BMI 20.7
--- NOTE | ~2022-04-12 | XR_ITS ---
EXAMINATION: XR hip RT 2V w AP pelvis DATE: 04/12/2022 17:33 INDICATION: Fall. TECHNIQUE: An anteroposterior view of the pelvis and 2 views of right hip were obtained. COMPARISON: Pelvis radiograph 06/01/2019 FINDINGS: There is lumbar levoscoliosis and severe spondylosis. No fracture. There is moderate osteoa rthritis of the hips. Clips overlie the pelvis. IMPRESSION: 1. Moderate osteoarthritis of the hips. Reviewed, dictated and finalized at location A.
--- NOTE | ~2022-04-12 | XR_ITS ---
EXAMINATION: XR elbow LT min 3V DATE: 04/12/2022 17:33 INDICATION: Left elbow pain. Fall. TECHNIQUE: 4 views of left elbow were obtained. COMPARISON: None. FINDINGS: Bone alignment is normal. No fracture. There is mild elbow joint osteoarthritis. There is a n elbow joint effusion. IMPRESSION: 1. Elbow joint effusion. No fracture identified. 2. Mild elbow joint osteoarthritis. Reviewed, dictated and finalized at location A.
--- NOTE | ~2022-04-12 | CT_ITS ---
EXAMINATION: CT brain wo con INDICATION: Transient alteration of awareness COMPARISON: None TECHNIQUE: Standard unenhanced head CT. The dose-length product (DLP) was 605.33 mGy-cm. The mA was a djusted according to patient size. Iterative reconstruction technique was employed. FINDINGS: There is right posterior parieto-occipital scalp soft tissue swelling. There is no acute in traparenchymal hemorrhage. No evidence of mass lesion. No evidence of acute infarction. There is mild periventricular and subcortical hypodensity probably related to small vessel ischemic disease. There is mild prominence of the sulci and ventricles related to cerebral atrophy. Intracranial calcified c erebral atherosclerosis is noted. There are no extra-axial collections. There is no mass effect or mi dline shift. Changes in the globes are likely from ocular lens surgery. The visualized sinuses and ma stoid air cells are well aerated. IMPRESSION: 1. Scalp soft tissue swelling without acute intracranial abnormality. 2. Age related findings. Reviewed, dictated and finalized at location B.
[2022-04-12 17:54] LABS: Eosinophils Absolute Auto 0.1 K/mm3 (0-0.3); Eosinophils Percent Auto 4.7 % (0-4.4); Hematocrit 26.1 % (37.0-47.0); Hemoglobin 8.5 g/dL (12.0-15.0); Immature Granulocyte Absolute 0.01 K/mm3 (0.00-0.031); Immature Granulocyte Percent A 0.4 % (0-0.5); Lymphocytes Absolute Auto 0.15 K/mm3 (0.9-3.2); Lymphocytes Percent Auto 5.9 % (18.3-44.2); Mean Corpuscular HGB Conc 32.6 g/dl (32-36); Mean Corpuscular Hemoglobin 32.7 pg (26-34); Mean Corpuscular Volume 100.4 fl (80-100); Mean Platelet Volume 8.8 fl (7.4-10.4); Monocytes Absolute Auto 0.3 K/mm3 (0.1-0.6); Monocytes Percent Auto 12.1 % (2.6-8.5); Neutrophils Percent Auto 76.9 % (45.5-73.1); Platelet Count Result 109 k/mm3 (150-375); Red Cell Distribution Width 15.7 % (11.5-14.5); White Blood Count 2.6 K/mm3 (4.5-10.0)
[2022-04-12 18:03] LABS: Anion Gap 8 mmol/L (8-16); Blood Urea Nitrogen 37 mg/dL (7-17); Calcium 7.6 mg/dL (8.4-10.2); Carbon Dioxide 26 mmol/L (22-30); Chloride 101 mmol/L (98-107); Estimated CRCL calculation 25 ml/min; Estimated Glomerular Filt Rate 48; Glucose 110 mg/dL (65-110); INR 1.1; Potassium 3.1 mmol/L (3.4-5.0); Prothrombin Time 13.3 Seconds (11.1-14.7); Sodium 135 mmol/L (137-145)
[2022-04-12 18:04] LABS: Partial Thromboplastin Time 24.9 SECONDS (22.3-36.8)
--- NOTE | 2022-04-12 18:45 | ED.FALL ---
HPI - Fall General Chief Complaint: Fall <Rolan Gao MD - Last Filed: 04/12/22 19:31> Stated Complaint: syncope, fall <Rolan Gao MD - Last Filed: 04/12/22 19:31> Time Seen by Provider: 04/12/22 16:32 <Rolan Gao MD - Last Filed: 04/12/22 19:31> History of Present Illness HPI Narrative: Patient is an 81-year-old female who presents ER after having a syncopal episode. She was walking with her walker and felt lightheaded like she might pass out. She then lost consciousness on the ground. went and assisted her up. She has been having pain in her right hip and left elbow since the fall. Patient reports she has history of low blood pressure and recurrent episodes of syncope. Most recent episode of syncope was in July. Had radiation therapy today for her cervical cancer. She had chemotherapy earlier in the week. She reports she was given IV fluids with potassium in it yesterday. She went to the hospital today and had an MRI performed. She reports she has been eating and drinking well otherwise. She also reports she recently got over a UTI for which she took ciprofloxacin. <Rolan Gao MD - Last Filed: 04/12/22 19:31> Related Data Home Medications: Home Medications Medication Instructions Recorded Confirmed furosemide 20 mg tablet 20 mg PO QAM 12/12/21 01/11/22 colchicine 0.6 mg tablet 0.6 mg PO PRN PRN GOUT FLARE UP 01/04/22 01/04/22 ezetimibe 10 mg-simvastatin 80 mg 1 tablet PO EVERY OTHER DAY 01/04/22 01/11/22 tablet (Vytorin) <Rolan Gao MD - Last Filed: 04/12/22 19:31> Allergies/Adverse Reactions: Allergies Allergy/AdvReac Type Severity Reaction Status Date / Time aspirin Allergy Mild stomach Verified 01/18/22 08:59 pain latex Allergy Mild rash Verified 01/18/22 08:59 <Rolan Gao MD - Last Filed: 04/12/22 19:31> PMFSH Past Medical History Medical History: Medical History (Updated 04/12/22 @ 20:31 by Nabeel Rubin MD) Acute ulcer of stomach Anemia Progressively after a year of B12 injections Bladder infection CHF (congestive heart failure) 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 History of benign breast biopsy HLD (hyperlipidemia) HTN (hypertension) Kidney stone At 35-40 y/o Knee fracture Knee cap Osteoarthritis of foot Pulmonary embolism Skin cancer Stage 3 chronic kidney disease Wrist fracture, bilateral <Rolan Gao MD - Last Filed: 04/12/22 19:31> Surgical History Surgical History: Surgical History (Updated 01/18/22 @ 09:04 by CHARO Reyes) History of appendectomy History of hysteroscopy (01/11/22) hscope D&C History of partial thyroidectomy History of tonsillectomy <Rolan Gao MD - Last Filed: 04/12/22 19:31> Social History Social History: Social History Smoking packs per day: 2.5 Smoking cigarettes per day: 50.0 Years smoked: 22 Smoking pack-years: 55.00 Smoking status: Former smoker Tobacco type: cigarettes Second hand tobacco smoke exposure: No Smoking end date: 06/23/79 Alcohol intake: current Drinks per week: 7 Alcohol use details: WINE Substance use: never Substance use type: does not use Additional living arrangements comments: Gender identity (if verbalized by the patient): Female Sexual Orientation (if Verbalized by the Patient): Straight or Heterosexual Spiritual care concerns: No <Rolan Gao MD - Last Filed: 04/12/22 19:31> Exam Narrative: GENERAL: Chronically ill-appearing, frail, and in no acute distress. HEAD: Normocephalic, 2 cm posterior scalp laceration. EYES: PERRL and EOMI. CHEST: Clear to auscultation. No respiratory distress. Tunneled line placement right chest wall. HEART: Regular rate and rhythm. Normal peripheral pulses. ABDOMEN: Soft, nontender, nondistended. EXTREMITIES: Left upper extremity with pain in the elbow
[2022-04-12] MEDS: SODIUM CHLORIDE 0.9% IV 500 ML 999 ML IV CONT (19:03)
[2022-04-12 19:34] LABS: Add Urine Microscopic? YES; Appearance Urine Cloudy (Clear); Bacteria Urine Trace /hpf; Bilirubin Urine Negative (Negative); Blood Urine 2+ (Negative); Color Urine Straw (Yellow); Glucose Urine UA Negative (Negative); Ketones Urine Negative (Negative); Leukocyte Esterase Ur 2+ LEU/UL (Negative); Mucus Urine Rare /lpf; Nitrate Urine Negative (Negative); Protein Urine 1+ mg/dL (Negative); RBC Urine 21-50 /hpf (0-2); Specific Grav Ur 1.013 (1.001-1.035); Squamous Epithelial Cell Urine Rare /hpf (Few); Urobilinogen Urine Negative mg/dL (<2.0); WBC Urine 21-30 /hpf
--- NOTE | 2022-04-12 19:46 | PC.NURSE ---
VORB per Dr. Gao 1000mg PO tylenol
[2022-04-12] MEDS: SODIUM CHLORIDE 0.9% IV 1,000 ML 999 ML IV CONT (19:50)
[2022-04-12] MEDS: ACETAMINOPHEN 500 MG TABLET 1000 MG PO (19:50)
--- NOTE | 2022-04-12 20:27 | PC.NURSE ---
EDP at bedside.
--- NOTE | 2022-04-12 20:27 | PM.IMHP ---
H&P: HPI History of Present Illness Date/Time: 04/12/22 20:27 Chief Complaint: syncope Narrative: This is an 81-year-old female with past medical history significant for Parkinson's, type 2 diabetes mellitus, dyslipidemia, cervical CA patient is currently undergoing chemotherapy she presented to the emergency room after having a syncopal episode while using her walker patient collapsed. patient was hypotensive at the time of EMS arrival as well as in emergency room.At this time is complaining of headache, hip pain, after the fall. patient denies any fevers, rigors, chills, has been nauseous due to chemotherapy treatment , has had a good appetite, no cough, no sputum production. preliminary workup was significant for hemoglobin was 8.5, hematocrit 26, a urinalysis showed 20-30 wbc's per high-power field. patient is been admitted for further evaluation management and treatment. CT of the head was reported as: IMPRESSION: 1. Scalp soft tissue swelling without acute intracranial abnormality. 2. Age related findings. x-ray of the hip was reported as: IMPRESSION: 1. Moderate osteoarthritis of the hips elbow x-ray was reported as: IMPRESSION: 1. Elbow joint effusion. No fracture identified. 2. Mild elbow joint osteoarthritis. Review of Systems Review of Systems: syncope and collapse while standing Constitutional: Constitutional: Denies chills, Reports fatigue, Denies fever(s), Reports malaise and Reports weakness Eyes: Eyes: Denies change in vision ENT: Denies dysphagia, Denies vertigo, Denies dizziness and Denies odynophagia Cardiovascular: Cardiovascular: Denies chest pain, Denies syncope, Denies irregular heart rhythm and Denies lightheadedness Respiratory: Respiratory: Denies chest congestion, Denies cough, Denies excessive phlegm production and Denies pain on inspiration Gastrointestinal: Gastrointestinal: Denies abdominal pain, Denies dyspepsia, Denies heartburn, Reports nausea and Denies vomiting Genitourinary: Genitourinary: Denies dysuria and Denies pelvic pain Musculoskeletal: Musculoskeletal: Reports myalgias and Reports arthralgias Integumentary/Breasts: Skin/Breast: Denies rash Neurologic: Denies focal weakness and Denies Sensory deficit (Neuro) Psychiatric: Psychiatric: Reports no additional psychiatric complaints and Reports as per HPI Endocrine: Endocrine: Denies cold intolerance, Denies flushing, Denies heat intolerance, Denies polyphagia, Denies polydipsia and Denies palpitations Hematologic/Lymphatic: Hematologic/Lymphatic: Reports no additional hematologic/lymphatic complaints and Reports as per HPI Allergic/Immunologic: Allergic/Immunologic: Reports no additional allergic/immunologic complaints and Reports as per HPI [facility] Past Medical History Medical History (Updated 04/13/22 @ 02:51 by Edna Henao MD) Acute ulcer of stomach Anemia Progressively after a year of B12 injections Bladder infection CHF (congestive heart failure) 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 History of benign breast biopsy HLD (hyperlipidemia) HTN (hypertension) Kidney stone At 35-39 y/o Knee fracture Knee cap Osteoarthritis of foot Pulmonary embolism Skin cancer Stage 3 chronic kidney disease Wrist fracture, bilateral Surgical History Surgical History (Updated 01/18/22 @ 09:04 by CHARO Reyes) History of appendectomy History of hysteroscopy (01/11/22) hscope D&C History of partial thyroidectomy History of tonsillectomy Social History Social History Smoking packs per day: 2.5 Smoking cigarettes per day: 50.0 Years smoked: 20 Smoking pack-years: 50.00 Smoking status: Former smoker Tobacco type: cigarettes Second hand tobacco smoke exposure: No Smoking end date: 06/23/79 Alcohol intake: current Drinks per week: 14 Alcohol use details: WINE Substance use: never Substance use type: does not use Additional sandra
--- NOTE | 2022-04-12 21:29 | PC.NURSE ---
Report called to margarita CONTEH at [phone].
--- NOTE | 2022-04-12 21:35 | ADMGEN ---
This patient, Marilyn Stephenson, was admitted to Medical Room 248-01. Patient/family oriented to hospital policies and general routines including ID bracelet, bed and alarms, visiting hours, pain management, procedures, bathroom and other care routines, personal items, smoking policy, room service/diet, and visiting hours. Information on how to activate the Rapid Response Team has been discussed. Patient/Family are encouraged to report perceived risks to care and to ask questions if they do not understand what they are told or what they should do.
[2022-04-12] MEDS: POTASSIUM CHLORIDE 20 MEQ TABLET 40 MEQ PO (22:13)
[2022-04-13] VITALS (9 sets, daily range): BP systolic 104–129; BP diastolic 64–78; PULSE 84–111; RESP 12–16; TEMP 36.3–36.8; O2SAT 95–97
--- NOTE | 2022-04-13 | ECHO_ITS ---
Patient Info Name: Marilyn Knight Organ Age: 81 years : 1940 Gender: Female Ht: 60 in Wt: 106 lbs BSA: 1.43 m2 BP: 104 / 64 mmHg Heart Rhythm: Sinus Rhythm Exam Date: 04/15/2022 2:30 PM Exam Location: [facility] Patient Status: Inpatient Admit Date: 04/13/2022 Staff Ordering Physician: Joel Salinas MD Fast Food Assistant Restaurant Manager: Taras Aguilera, JUSTIN, RT Attending Provider: Joel Salinas MD Exam Type: CA echo limited w contrast Study Info Limited two-dimensional transthoracic echocardiogram is performed with contrast. Summary 1. Limited study with limited views. Definity echo contrast enhancement administered. While regional wall motion assessment limited no clear wall motion abnormalities identified with images provided. 2. Left ventricular chamber dimension is normal. 3. Left ventricular systolic function is normal, estimated at 60-65%. 4. There is no increased left ventricular wall thickness. 5. Right ventricular chamber dimension is normal. 6. Right ventricular systolic function is normal. Left Ventricle Limited study with limited views. Definity echo contrast enhancement administered. While regional wall motion assessment limited no clear wall motion abnormalities identified with images provided. Left ventricular chamber dimension is normal. Left ventricular systolic function is normal, estimated at 60-65%. There is no increased left ventricular wall thickness. Right Ventricle Right ventricular chamber dimension is normal. Right ventricular systolic function is normal. Left Atria Left atrial chamber dimension is not well visualized. Right Atria Right atrial chamber dimension is not well visualized. Aortic Valve The aortic valve is not well visualized. Pulmonic Valve The pulmonic valve is not well visualized. Mitral Valve The mitral valve has not well visualized. Tricuspid Valve The tricuspid valve leaflets are not well visualized. Pericardium/Pleural The pericardium appears not well visualized. Aorta The aortic root size at the sinus of Valsalva is not well visualized. Ventricles Name Value Normal LV Dimensions 2D/MM IVS Diastolic Thickness (2D) 0.9 cm 0.6-1.0 LVID Diastole (2D) 4.8 cm 3.8-5.2 LVIW Diastolic Thickness (2D) 0.9 cm 0.6-0.9 LVID Systole (2D) 3.1 cm 2.2-3.5 LV Mass (2D Cubed) 145.56 g 67.00-162.00 LV Mass Index (2D Cubed) 102 g/m2 43-95 Relative Wall Thickness (2D) 0.37 LV Fractional Shortening/Ejection Fraction 2D/MM LV Fractional Shortening (2D) 37 % 27-45 LV EF (2D Teicholz) 66 % 54-74 LV Diastolic Volume (4C MOD) 106 ml LV EF (4C MOD) 63 % LV Diastolic Volume (2C MOD) 93 ml LV EF (2C MOD) 62 % LV Diastolic Volume (BP MOD) 102 ml 46-106 LV Diastolic Volume Index (BP MOD) 72 ml/m2 29-61 LV Systolic Volume (BP MOD) 37 ml 14-42 L
[2022-04-13 06:05] LABS: Glucose Point of Care 100 mg/dl (65-105)
--- NOTE | 2022-04-13 06:08 | ECG_ITS ---
Measurements Intervals [place] Rate: 100 P: 30 SC: 114 QRS: 6 QRSD: 87 T: 29 QT: 339 QTc: 439 Interpretive Statements SINUS TACHYCARDIA WITH SHORT SC INTERVAL NONSPECIFIC T-WAVE ABNORMALITY ABNORMAL RHYTHM ECG COMPARED TO ECG 06/01/2019 09:20:19 SINUS TACHYCARDIA NOW PRESENT Electronically Signed On 04-13-2022 9:04:05 CDT by Katia Zavaleta M.D.
--- NOTE | 2022-04-13 06:32 | PC.NURSE ---
Called into pt room by Carri Norton CNA, pt called to use the bedpan. Pt was aphasic when Carri entered the room. When assessing the patient she is using word salad, and pt does have aphasia which is a change. All other neuro checks appear normal. Rapid response called
--- NOTE | 2022-04-13 10:39 | PM.IMPN ---
Progress Note: A&P Assessment and Plan (1) Syncope: Code(s): R55 - Syncope and collapse Status: Acute Assessment and Plan: likely to be vasovagal IV fluid start at [address] on telemetry Recent admission with atrial fibrillation with rapid ventricular rate which converted to sinus rhythm spontaneously at discharge was started on Eliquis but she did not take it. Will place on telemetry Recent MRI done 04/12/2022: No abnormal enhancing brain lesion to suggest intracranial metastatic disease. A few punctate foci of diffusion restriction within bilateral occipital lobes which could represent punctate acute / subacute infarct versus artifact. No large vascular territory infarct. Will consult neurology Recent echocardiogram done on 03/29/2022 with ejection fraction 59% no regional wall motion abnormality. No intracranial masses or thrombi noted at the time. Will start PT OT (2) Effusion of elbow: Code(s): M25.429 - Effusion, unspecified elbow Status: Acute Assessment and Plan: local care (3) Laceration of scalp: Code(s): S01.01XA - Laceration without foreign body of scalp, initial encounter Status: Acute Assessment and Plan: local care (4) Acute UTI: Code(s): N39.0 - Urinary tract infection, site not specified Status: Acute Assessment and Plan: patient started on Rocephin recently treated with ciprofloxacin Urine culture with insignificant growth from 04/05/2022 Urine culture has been sent and will await urine culture (5) Chronic kidney disease, stage 3 (moderate): Qualifiers: Chronic kidney disease stage 3 subtype: stage 3a (GFR 45-59) Qualified Code(s): N18.31 - Chronic kidney disease, stage 3a Code(s): N18.3 - Chronic kidney disease, stage 3 (moderate) Status: Acute Assessment and Plan: continue to monitor (6) Megaloblastic anemia: Code(s): D53.1 - Other megaloblastic anemias, not elsewhere classified Status: Acute Assessment and Plan: follow-up in outpatient setting (7) Uterine cancer: Code(s): C55 - Malignant neoplasm of uterus, part unspecified Status: Acute Assessment and Plan: undergoing chemotherapy and radiation therapy follow-up in outpatient setting Plan Parkinson's disease :will resume home medications Hypokalemia replace and monitor Subjective Date/time seen: 04/13/22 10:39 Interval history: This is an 81-year-old female with past medical history significant for Parkinson's, type 2 diabetes mellitus, dyslipidemia, cervical CA patient is currently undergoing chemotherapy she presented to the emergency room after having a syncopal episode while using her walker? patient collapsed. patient was hypotensive at the time of? EMS arrival? as well as in emergency room.At this time is complaining of headache, hip pain, after the fall. patient denies any fevers, rigors, chills, has been nauseous due to chemotherapy treatment , has had a good appetite, no cough, no sputum production. preliminary workup was significant for hemoglobin was 8.5, hematocrit 26, a urinalysis showed? 20-30 wbc's per high-power field. patient is been admitted for further evaluation management and treatment. ?CT of the head was reported as: IMPRESSION: 1. Scalp soft tissue swelling without acute intracranial abnormality. 2. Age related findings. ?x-ray of the hip was reported as: IMPRESSION: 1. Moderate osteoarthritis of the hips ?elbow x-ray was reported as: IMPRESSION: 1. Elbow joint effusion. No fracture identified. 2. Mild elbow joint osteoarthritis. 04/13/2022: Feels weak. Loose stool ongoing since past few days. She also complains of burning urination. Wants to get up to go to the bathroom. No shortness of breath or chest pain. No cough. Review of Systems Review of Systems: All systems reviewed & are unremarkable except as noted in HPI and be
[2022-04-13 11:10] LABS: Basophils Percent Auto 0.4 % (0.2-1.2); Eosinophils Absolute Auto 0.1 K/mm3 (0-0.3); Eosinophils Percent Auto 4.6 % (0-4.4); Hematocrit 25.6 % (37.0-47.0); Hemoglobin 8.3 g/dL (12.0-15.0); Immature Granulocyte Absolute 0.03 K/mm3 (0.00-0.031); Immature Granulocyte Percent A 1.1 % (0-0.5); Immature Platelet Fraction Pct 1.5 % (0.9-11.2); Lymphocytes Percent Auto 3.8 % (18.3-44.2); Mean Corpuscular HGB Conc 32.4 g/dl (32-36); Mean Corpuscular Hemoglobin 32.9 pg (26-34); Mean Corpuscular Volume 101.6 fl (80-100); Mean Platelet Volume 8.9 fl (7.4-10.4); Monocytes Absolute Auto 0.3 K/mm3 (0.1-0.6); Monocytes Percent Auto 12.2 % (2.6-8.5); Neutrophils Percent Auto 77.9 % (45.5-73.1); Platelet Count Result 119 k/mm3 (150-375); Red Blood Count 2.52 M/mm3 (4.2-5.4); Red Cell Distribution Width 15.5 % (11.5-14.5); White Blood Count 2.6 K/mm3 (4.5-10.0)
[2022-04-13 11:21] LABS: Alanine Aminotransferase 37 U/L (6-35); Albumin Level 2.9 g/dL (3.5-5.1); Alkaline Phosphatase 72 U/L (38-126); Anion Gap 5 mmol/L (8-16); Aspartate Amino Transferase 38 U/L (14-36); Bilirubin,Total 0.3 mg/dL (0.2-1.3); Blood Urea Nitrogen 25 mg/dL (7-17); Carbon Dioxide 24 mmol/L (22-30); Chloride 106 mmol/L (98-107); Estimated CRCL calculation 25 ml/min; Estimated Glomerular Filt Rate 48; Glucose 103 mg/dL (65-110); Magnesium 1.6 mg/dL (1.6-2.3); Sodium 135 mmol/L (137-145)
[2022-04-13] MEDS: cefTRIAXone 2 GM in SODIUM CHLORIDE 0.9% IV 100 ML 200 ML IVPB (12:13)
[2022-04-13] MEDS: SODIUM CHLORIDE 0.9% IV 1,000 ML 60 ML IV CONT (12:13)
[2022-04-13] MEDS: ACETAMINOPHEN 500 MG TABLET 1000 MG PO (12:14)
--- NOTE | 2022-04-13 14:01 | WPDNEURCNPN ---
Assessment and Plan Assessment and plan (1) Megaloblastic anemia: Code(s): D53.1 - Other megaloblastic anemias, not elsewhere classified Status: Acute (2) Syncope: Code(s): R55 - Syncope and collapse Status: Acute (3) Laceration of scalp: Code(s): S01.01XA - Laceration without foreign body of scalp, initial encounter Status: Acute (4) Orthostatic hypotension: Code(s): I95.1 - Orthostatic hypotension Status: Acute (5) Parkinson disease: Code(s): G20 - Parkinson's disease Status: Acute Plan recurrent syncopal episode most likely vasovagal with for general condition treatment medical does have resting tremor consistent with Parkinson's Consult date: 04/13/22 Time Seen: 13:00 HPI: Marilyn Stephenson is a 81 year old female admitted to the hospital through the emergency room subsequent to a syncopal episode at home. Reportedly she was walking with her walker felt lightheaded and felt like passing out and then became unconscious on the ground assisted her up he has been complaining of pain in her right hip left elbow since the fall she has had history of low blood pressure recurrent syncopal episodes in the past she has received radiation therapy on the day of this particular admission for cervical cancer with seated by the chemotherapy earlier in the week though she received IV fluids with potassium yesterday that is day before admission and also had an MRI performed. Her outpatient medications included Lasix 20 mg daily with colchicine 0.6 mg p.r.n. and Vytorin 1 tablet daily, she has ongoing history of ulcer the stomach in the past B12 deficiency anemia congestive heart failure again [place] syndrome - pulmonary embolism and osteoarthritis of foot in addition to stage III renal disease, she also has history of smoking pack-years 55 though she is former smoker currently alcohol intake or 7 drinks per week and examination revealed her to be chronically ill frail but in no acute distress evaluation in the emergency room revealed the blood pressure 179/140 repeat 85/51 but otherwise normal vital signs, normal CBC and BMP with potassium of 3.1 sodium 135 BUN 37 UA abnormal GFR only 48 Review of Systems Review of Systems: All systems reviewed & are unremarkable except as noted in HPI and below PMFSH Past Medical History Medical History (Updated 04/13/22 @ 02:51 by Edna Henao MD) Acute ulcer of stomach Anemia Progressively after a year of B12 injections Bladder infection CHF (congestive heart failure) 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 History of benign breast biopsy HLD (hyperlipidemia) HTN (hypertension) Kidney stone At 35-40 y/o Knee fracture Knee cap Osteoarthritis of foot Pulmonary embolism Skin cancer Stage 3 chronic kidney disease Wrist fracture, bilateral Surgical History Surgical History (Updated 01/18/22 @ 09:04 by CHARO Reyes) History of appendectomy History of hysteroscopy (01/11/22) hscope D&C History of partial thyroidectomy History of tonsillectomy Social History Social History Smoking packs per day: 2.5 Smoking cigarettes per day: 50.0 Years smoked: 20 Smoking pack-years: 50.00 Smoking status: Former smoker Tobacco type: cigarettes Second hand tobacco smoke exposure: No Smoking end date: 06/23/79 Alcohol intake: current Drinks per week: 14 Alcohol use details: WINE Substance use: never Substance use type: does not use Additional living arrangements comments: Gender identity (if verbalized by the patient): Female Sexual Orientation (if Verbalized by the Patient): Straight or Heterosexual Spiritual care concerns: No Has the Lack of Transportation Kept You From Medical Appointments or From Getting Medications?: No Within the Past 12 Months, Were You Worried Whether Your Food Would Run Out Before You Got Money to Buy More?: Never True
[2022-04-13] MEDS: POTASSIUM CHLORIDE 10 MEQ TABLET.ER PO (17:44)
[2022-04-13] MEDS: CARBIDOPA/LEVODOPA 25/100 MG TABLET 1 TABLET PO (17:44)
[2022-04-14] VITALS (12 sets, daily range): BP systolic 101–119; BP diastolic 66–82; PULSE 76–112; RESP 16–24; TEMP 36.1–36.6; O2SAT 95–100
[2022-04-14] MEDS: SODIUM CHLORIDE 0.9% IV 1,000 ML 60 ML IV CONT (07:00)
[2022-04-14] MEDS: cefTRIAXone 2 GM in SODIUM CHLORIDE 0.9% IV 100 ML 200 ML IVPB (08:18)
[2022-04-14] MEDS: POTASSIUM CHLORIDE 10 MEQ TABLET.ER PO ×2 (08:19→18:00)
[2022-04-14] MEDS: allopurinoL 300 MG TABLET PO (08:19)
[2022-04-14] MEDS: SIMVASTATIN 20 MG TABLET 80 MG PO (08:19)
[2022-04-14] MEDS: CARBIDOPA/LEVODOPA 25/100 MG TABLET 1 TABLET PO ×2 (08:19→18:00)
[2022-04-14] MEDS: EZETIMIBE 10 MG TABLET PO (08:19)
--- NOTE | 2022-04-14 10:43 | PM.IMPN ---
Progress Note: A&P Assessment and Plan (1) Syncope: Code(s): R55 - Syncope and collapse Status: Acute Assessment and Plan: likely to be vasovagal IV fluid start at [address] on telemetry Recent admission with atrial fibrillation with rapid ventricular rate which converted to sinus rhythm spontaneously at discharge was started on Eliquis but she did not take it. Will place on telemetry Recent MRI done 04/12/2022: No abnormal enhancing brain lesion to suggest intracranial metastatic disease. A few punctate foci of diffusion restriction within bilateral occipital lobes which could represent punctate acute / subacute infarct versus artifact. No large vascular territory infarct. Will consult neurology Recent echocardiogram done on 03/29/2022 with ejection fraction 59% no regional wall motion abnormality. No intracranial masses or thrombi noted at the time. start PT OT telemetry reviewed: Intermittent SVT noted overnight. Currently at sinus rhythm Will consult Cardiology (2) Effusion of elbow: Code(s): M25.429 - Effusion, unspecified elbow Status: Acute Assessment and Plan: local care (3) Laceration of scalp: Code(s): S01.01XA - Laceration without foreign body of scalp, initial encounter Status: Acute Assessment and Plan: local care (4) Acute UTI: Code(s): N39.0 - Urinary tract infection, site not specified Status: Acute Assessment and Plan: patient started on Rocephin recently treated with ciprofloxacin Urine culture with insignificant growth from 04/05/2022 Urine culture has been sent and urine culture no growth to date (5) Chronic kidney disease, stage 3 (moderate): Qualifiers: Chronic kidney disease stage 3 subtype: stage 3a (GFR 45-59) Qualified Code(s): N18.31 - Chronic kidney disease, stage 3a Code(s): N18.3 - Chronic kidney disease, stage 3 (moderate) Status: Acute Assessment and Plan: continue to monitor (6) Megaloblastic anemia: Code(s): D53.1 - Other megaloblastic anemias, not elsewhere classified Status: Acute Assessment and Plan: follow-up in outpatient setting (7) Uterine cancer: Code(s): C55 - Malignant neoplasm of uterus, part unspecified Status: Acute Assessment and Plan: undergoing chemotherapy and radiation therapy follow-up in outpatient setting family opting to go to [place] due to chemo/ radiation treatment few and to get in touch with Dr. Rodriguez Will discussed with Dr. Rodriguez about possible transfer in a.. Plan Parkinson's disease :will resume home medications Hypokalemia replace and monitor Subjective Date/time seen: 04/14/22 10:43 Interval history: This is an 81-year-old female with past medical history significant for Parkinson's, type 2 diabetes mellitus, dyslipidemia, cervical CA patient is currently undergoing chemotherapy she presented to the emergency room after having a syncopal episode while using her walker? patient collapsed. patient was hypotensive at the time of? EMS arrival? as well as in emergency room.At this time is complaining of headache, hip pain, after the fall. patient denies any fevers, rigors, chills, has been nauseous due to chemotherapy treatment , has had a good appetite, no cough, no sputum production. preliminary workup was significant for hemoglobin was 8.5, hematocrit 26, a urinalysis showed? 20-30 wbc's per high-power field. patient is been admitted for further evaluation management and treatment. ?CT of the head was reported as: IMPRESSION: 1. Scalp soft tissue swelling without acute intracranial abnormality. 2. Age related findings. ?x-ray of the hip was reported as: IMPRESSION: 1. Moderate osteoarthritis of the hips ?elbow x-ray was reported as: IMPRESSION: 1. Elbow joint effusion. No fracture identified. 2. Mild elbow joint osteoarthritis. 04/13/2022: Feels weak. Loose
[2022-04-14] MEDS: ACETAMINOPHEN 500 MG TABLET 1000 MG PO ×2 (15:23→21:31)
--- NOTE | 2022-04-14 18:39 | PM.CNCAR ---
Assessment and Plan Assessment and plan (1) PSVT (paroxysmal supraventricular tachycardia): Code(s): I47.1 - Supraventricular tachycardia Status: Acute Assessment and Plan: Telemetry shows brief episodes of tachycardia, mostly PSVT, HR 120-160's. May be difficult to find a medication to control this in view of her soft blood pressure will see how she does on metoprolol 12.5 mg b.i.d.. Other options that may notaggravate her hypotension would be digoxin or amiodarone, each of which have their own set of side effects and issues. (2) Paroxysmal atrial fibrillation: Code(s): I48.0 - Paroxysmal atrial fibrillation Status: Acute Assessment and Plan: Paroxysmal atrial fibrillation diagnosed at [facility] March 2022. Isolated episode blamed on electrolyte imbalance and dehydration patient declined Eliquis therapy. Reviewed risk of cardioembolic events with paroxysmal atrial fibrillation. In retrospect this may have been a good idea since she had a recent syncopal event and head injury with laceration. Reasonable to hold off on Eliquis now. If the patient shows that she has no further syncopal events and is less of a fall risk we can reconsider. (3) Syncope: Code(s): R55 - Syncope and collapse Status: Acute Assessment and Plan: Admitted with syncope, found to be hypotensive. Getting IV fluids having a tough time with chemo and radiation therapy Parkinson's disease may be contributing as well with a degree of autonomic dysfunction. Will check orthostatic blood pressures. No evidence of any bradyarhythmic problem causing her syncope. Whether not her tachycardias contribute is yet to be determined. (4) Hypotension: Code(s): I95.9 - Hypotension, unspecified Status: Acute Assessment and Plan: Getting IV fluids. Recommend she use the least amount of furosemide she can get by with. Try nonpharmacologic methods of controlling lower extremity edema with compression stockings etc.. (5) Parkinson disease: Code(s): G20 - Parkinson's disease Status: Acute Assessment and Plan: History of Michael disease, walks with a walker. (6) Cervical cancer: Code(s): C53.9 - Malignant neoplasm of cervix uteri, unspecified Status: Acute Assessment and Plan: Active treatment with chemotherapy and radiation, has completed 4 weeks out of 6, at [facility]. History of Present Illness History of Present Illness Consult date/time: 04/14/22 18:39 Reason For Visit: Recurrent syncope Narrative: Marilyn Stephenson is a 81-year-old female whom I was asked to see at the request of Dr. Salinas for my advice and opinion regarding her atrial fibrillation in consultation. She has had 1 episode AFib, sctive treatment for cervical cancer, and Parkinson's disease. Ms. Stephenson is being treated for carcinoma of the cervix with radiation and chemotherapy at [place]. She was admitted there on 03/28/2022 feeling weak, anorexic, dizzy, with a brief episode of chest pain and hypotensive. She was found to be in new onset atrial fibrillation thought to be 2nd to dehydration. She was given IV fluids. Troponin was up to 1200 (thought to be due to nonischemic myocardial injury) , and proBNP was 834. Echo showed EF 59%, mild diastolic dysfunction, mild valve disease. Sinus rhythm was restored and she was discharged on Eliquis 2.5 mg b.i.d. (which she did not start-- she explains that she did not think she had heart problem to begin with and also she was already black and blue and did not want to take a blood thinner). The patient had her radiation therapy yesterday and then while walking with a walker felt lightheaded and lost consciousness having a syncopal episode with a head laceration. She was given IV fluids in the emergency room; initially her blood pressure was quite high better later blood pressure was 8
[2022-04-14] MEDS: METOPROLOL TARTRATE 12.5 MG TABLET PO (21:33)
[2022-04-15] VITALS (14 sets, daily range): BP systolic 97–144; BP diastolic 56–85; PULSE 86–109; RESP 16–20; TEMP 36.1–36.4; O2SAT 94–99
[2022-04-15] MEDS: SODIUM CHLORIDE 0.9% IV 1,000 ML 60 ML IV CONT (00:19)
[2022-04-15 06:04] LABS: Basophils Percent Auto 0.3 % (0.2-1.2); Eosinophils Absolute Auto 0.2 K/mm3 (0-0.3); Hematocrit 22.7 % (37.0-47.0); Immature Granulocyte Absolute 0.13 K/mm3 (0.00-0.031); Immature Granulocyte Percent A 3.9 % (0-0.5); Immature Platelet Fraction Pct 1.9 % (0.9-11.2); Lymphocytes Absolute Auto 0.12 K/mm3 (0.9-3.2); Lymphocytes Percent Auto 3.6 % (18.3-44.2); Mean Corpuscular HGB Conc 31.3 g/dl (32-36); Mean Corpuscular Hemoglobin 32.7 pg (26-34); Mean Corpuscular Volume 104.6 fl (80-100); Mean Platelet Volume 9.4 fl (7.4-10.4); Monocytes Absolute Auto 0.4 K/mm3 (0.1-0.6); Monocytes Percent Auto 13.3 % (2.6-8.5); Neutrophils Absolute Auto 2.4 K/mm3 (1.3-6.7); Neutrophils Percent Auto 72.9 % (45.5-73.1); Platelet Count Result 115 k/mm3 (150-375); Red Blood Count 2.17 M/mm3 (4.2-5.4); Red Cell Distribution Width 15.9 % (11.5-14.5); White Blood Count 3.3 K/mm3 (4.5-10.0)
[2022-04-15] MEDS: ACETAMINOPHEN 500 MG TABLET 1000 MG PO ×2 (06:23→12:30)
[2022-04-15 06:25] LABS: Alanine Aminotransferase 15 U/L (6-35); Albumin Level 2.7 g/dL (3.5-5.1); Alkaline Phosphatase 59 U/L (38-126); Anion Gap 8 mmol/L (8-16); Aspartate Amino Transferase 27 U/L (14-36); Bilirubin,Total 0.2 mg/dL (0.2-1.3); Blood Urea Nitrogen 13 mg/dL (7-17); Calcium 7.7 mg/dL (8.4-10.2); Carbon Dioxide 19 mmol/L (22-30); Chloride 112 mmol/L (98-107); Estimated CRCL calculation 30 ml/min; Estimated Glomerular Filt Rate 60; Glucose 77 mg/dL (65-110); Magnesium 1.4 mg/dL (1.6-2.3); Potassium 3.6 mmol/L (3.4-5.0); Sodium 139 mmol/L (137-145)
[2022-04-15 07:00] LABS: Hemoglobin 7.1 g/dL (12.0-15.0)
[2022-04-15] MEDS: METOPROLOL TARTRATE 12.5 MG TABLET PO ×2 (08:13→21:53)
[2022-04-15] MEDS: CARBIDOPA/LEVODOPA 25/100 MG TABLET 1 TABLET PO ×2 (08:14→17:02)
[2022-04-15] MEDS: allopurinoL 300 MG TABLET PO (08:14)
[2022-04-15] MEDS: POTASSIUM CHLORIDE 10 MEQ TABLET.ER PO ×2 (08:15→17:02)
[2022-04-15] MEDS: MAGNESIUM SULF 2 GM/WATER 50ML 2 GM/50 ML BAG IVPB (08:16)
--- NOTE | 2022-04-15 09:07 | PM.IMPN ---
Progress Note: A&P Assessment and Plan (1) Syncope: Code(s): R55 - Syncope and collapse Status: Acute Assessment and Plan: likely to be vasovagal IV fluid start at [address] on telemetry Recent admission with atrial fibrillation with rapid ventricular rate which converted to sinus rhythm spontaneously at discharge was started on Eliquis but she did not take it. Will place on telemetry Recent MRI done 04/12/2022: No abnormal enhancing brain lesion to suggest intracranial metastatic disease. A few punctate foci of diffusion restriction within bilateral occipital lobes which could represent punctate acute / subacute infarct versus artifact. No large vascular territory infarct. Will consult neurology Recent echocardiogram done on 03/29/2022 with ejection fraction 59% no regional wall motion abnormality. No intracranial masses or thrombi noted at the time. start PT OT telemetry reviewed: Intermittent SVT noted overnight. 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 no further SVT noted overnight on metoprolol (2) Effusion of elbow: Code(s): M25.429 - Effusion, unspecified elbow Status: Acute Assessment and Plan: local care (3) Laceration of scalp: Code(s): S01.01XA - Laceration without foreign body of scalp, initial encounter Status: Acute Assessment and Plan: local care (4) Acute UTI: Code(s): N39.0 - Urinary tract infection, site not specified Status: Acute Assessment and Plan: patient started on Rocephin recently treated with ciprofloxacin Urine culture with insignificant growth from 04/05/2022 Urine culture has been sent and urine culture no growth to date (5) Chronic kidney disease, stage 3 (moderate): Qualifiers: Chronic kidney disease stage 3 subtype: stage 3a (GFR 45-59) Qualified Code(s): N18.31 - Chronic kidney disease, stage 3a Code(s): N18.3 - Chronic kidney disease, stage 3 (moderate) Status: Acute Assessment and Plan: continue to monitor (6) Megaloblastic anemia: Code(s): D53.1 - Other megaloblastic anemias, not elsewhere classified Status: Acute Assessment and Plan: follow-up in outpatient setting (7) Uterine cancer: Code(s): C55 - Malignant neoplasm of uterus, part unspecified Status: Acute Assessment and Plan: undergoing chemotherapy and radiation therapy follow-up in outpatient setting family opting to go to [place] due to chemo/ radiation treatment few and to get in touch with Dr. Rodriguez Will discussed with Dr. Rodriguez about possible transfer in a.m. Plan Parkinson's disease :will resume home medications Hypokalemia replace and monitor hypomagnesemia: replace and monitor DVT proph: SCD, anemia worsened. will hold off pharmacologic DVT proph Subjective Date/time seen: 04/15/22 09:07 Interval history: This is an 81-year-old female with past medical history significant for Parkinson's, type 2 diabetes mellitus, dyslipidemia, cervical CA patient is currently undergoing chemotherapy she presented to the emergency room after having a syncopal episode while using her walker? patient collapsed. patient was hypotensive at the time of? EMS arrival? as well as in emergency room.At this time is complaining of headache, hip pain, after the fall. patient denies any fevers, rigors, chills, has been nauseous due to chemotherapy treatment , has had a good appetite, no cough, no sputum production. preliminary workup was significant for hemoglobin was 8.5, hematocrit 26, a urinalysis showed? 20-30 wbc's per high-power field. patient is been admitted for further evaluation management and treatment. ?CT of the head was reported as: IMPRESSION: 1. Scalp soft tissue swelling without acute intracranial abnormality. 2. Age related findings. ?x-ray of the hip was reported as: IMPRESSION: 1. Moderate osteoarthritis of the hips ?elbow x-ray
[2022-04-15] MEDS: cefTRIAXone 2 GM in SODIUM CHLORIDE 0.9% IV 100 ML 200 ML IVPB (09:49)
--- NOTE | 2022-04-15 10:31 | PM.PNCARD ---
Progress Note: A&P Assessment and Plan (1) Syncope: Code(s): R55 - Syncope and collapse Status: Acute Assessment and Plan: ?having a tough time with chemo and radiation therapy ?Parkinson's disease may be contributing as well with a degree of autonomic dysfunction.? Would check orthostatic blood pressures. ? No evidence of any bradyarhythmic problem causing her syncope. Unlikely due to PSVT. TTE has already been ordered, will follow up on results. (2) Paroxysmal atrial fibrillation: Code(s): I48.0 - Paroxysmal atrial fibrillation Status: Acute Assessment and Plan: ? Paroxysmal atrial fibrillation diagnosed at [facility] March 2022. ? Isolated episode blamed on electrolyte imbalance and dehydration ?patient declined Eliquis therapy. ? Reviewed risk of cardioembolic events with paroxysmal atrial fibrillation.? In retrospect this may have been a good idea since she had a recent syncopal event and head injury with laceration. ? Reasonable to hold off on Eliquis now. Patient to follow-up as an outpatient. (3) PSVT (paroxysmal supraventricular tachycardia): Code(s): I47.1 - Supraventricular tachycardia Status: Acute Assessment and Plan: Telemetry shows brief episodes of tachycardia, mostly PSVT, HR 120-160's. ? May be difficult to find a medication to control this in view of her soft blood pressure ?Currently tolerating Metoprolol 12.5mg BID well. ? Continue to monitor on telemetry. Time Spent With Patient Time with patient: 15 - 25 minutes Subjective Date/time seen: 04/15/22 10:31 Interval history: Reason for visit: Syncope Follow-up visit. No acute events overnight. Patient feeling better. Sittting up at chair at bedside. Has not had further syncopal events. No further episodes of PSVT since yesterday afternoon. Tolerating Metoprolol. Review of Systems Constitutional: Constitutional: Denies body ache(s), Denies chills, Reports fatigue and Reports weakness Cardiovascular: Cardiovascular: Reports as per HPI, Denies chest pain, Denies diaphoresis, Denies leg edema, Denies lightheadedness and Denies palpitations Respiratory: Respiratory: Denies dyspnea and Denies dyspnea on exertion Gastrointestinal: Gastrointestinal: Denies abdominal pain Musculoskeletal: Musculoskeletal: Reports no additional musculoskeletal complaints Neurologic: Reports as per HPI Objective Data Vital Signs Vital Signs: Vital Signs - 24 hr 04/14/22 14:18 04/14/22 12:00 04/14/22 18:07 Temperature 36.6 C Pulse Rate 108 H 112 H Respiratory Rate 16 Blood Pressure 110/72 105/74 Pulse Oximetry 97 04/14/22 18:08 04/14/22 16:00 04/14/22 21:06 Temperature 36.3 C L Pulse Rate 104 H 103 H Respiratory Rate 16 Blood Pressure 103/76 101/69 Pulse Oximetry 99 04/14/22 21:33 04/15/22 04:36 04/14/22 20:00 Temperature 36.1 C L Pulse Rate 103 H 95 97 Respiratory Rate 16 Blood Pressure 144/82 H Pulse Oximetry 94 04/15/22 00:00 04/15/22 04:00 04/15/22 08:13 Temperature Pulse Rate 93 97 86 Respiratory Rate Blood Pressure Pulse Oximetry 04/15/22 08:45 04/15/22 08:49 04/15/22 08:53 Temperature Pulse Rate 93 97 102 H Respiratory Rate Blood Pressure 126/81 122/85 97/72 L Pulse Oximetry Intake/Output Intake/Output: Intake & Output 04/12/22 04/13/22 04/14/22 04/15/22 23:59 23:59 23:59 23:59 Intake Total 2394 166 6401 190 Output Total 925 475 Balance 1550 -55 2015 190 Meds/Results Medications: Active Medications Generic Name Dose Route Start Last Admin Trade Name Freq PRN Reason Stop Dose Admin Acetaminophen 1,000 mg 04/13/22 10:37 04/15/22 06:23 Acetaminophen 500 Mg Tablet PO 1,000 mg Q6H PRN Administration Mild Pain (1-3) Or Fever Allopurinol 300 mg 04/14/22 09:00 04/15/22 08:14 Allopurinol 300 Mg Tablet PO 300 mg DAILY ANABELA Administration Carbidopa/Levodopa 1 tablet 10
[2022-04-15] MEDS: CENTRAL LINE FLUSH 10 ML IV PUSH ×2 (15:21→21:53)
[2022-04-15] MEDS: LORazepam (*CRX) 0.5 MG TABLET BY MOUTH (17:02)
[2022-04-15] MEDS: ALTEPLASE 2 MG VIAL (CATHFLO) IV PUSH ×2 (17:04→17:09)
[2022-04-16] VITALS (18 sets, daily range): BP systolic 101–151; BP diastolic 56–88; PULSE 82–102; RESP 14–21; TEMP 36.2–36.7; O2SAT 97–100
[2022-04-16] MEDS: CENTRAL LINE FLUSH 10 ML IV PUSH ×4 (04:09→21:12)
[2022-04-16] MEDS: CENTRAL LINE FLUSH 20 ML IV PUSH (04:17)
[2022-04-16 04:24] LABS: Hematocrit 21.3 % (37.0-47.0); Immature Platelet Fraction Pct 1.5 % (0.9-11.2); Mean Corpuscular HGB Conc 31.9 g/dl (32-36); Mean Corpuscular Volume 103.4 fl (80-100); Mean Platelet Volume 9.4 fl (7.4-10.4); Platelet Count Result 119 k/mm3 (150-375); Red Blood Count 2.06 M/mm3 (4.2-5.4); Red Cell Distribution Width 15.9 % (11.5-14.5); White Blood Count 3.7 K/mm3 (4.5-10.0)
[2022-04-16 04:31] LABS: Hemoglobin 6.8 g/dL (12.0-15.0)
[2022-04-16 04:32] LABS: Alanine Aminotransferase 14 U/L (6-35); Albumin Level 2.7 g/dL (3.5-5.1); Alkaline Phosphatase 61 U/L (38-126); Anion Gap 9 mmol/L (8-16); Aspartate Amino Transferase 29 U/L (14-36); Bilirubin,Total 0.3 mg/dL (0.2-1.3); Blood Urea Nitrogen 13 mg/dL (7-17); Calcium 7.6 mg/dL (8.4-10.2); Carbon Dioxide 17 mmol/L (22-30); Chloride 112 mmol/L (98-107); Estimated CRCL calculation 28 ml/min; Estimated Glomerular Filt Rate 53; Glucose 83 mg/dL (65-110); Magnesium 1.7 mg/dL (1.6-2.3); Potassium 3.5 mmol/L (3.4-5.0); Sodium 138 mmol/L (137-145)
[2022-04-16 04:56] LABS: Platelet Estimate Adequate (Adequate)
[2022-04-16 04:57] LABS: Hypochromasia 2+ (NORMAL)
[2022-04-16 04:58] LABS: Anisocytosis 2+ (NORMAL); Macrocytosis 2+ (NORMAL)
[2022-04-16 04:59] LABS: Spherocytes 1+ (NORMAL)
[2022-04-16 05:00] LABS: Schistocytes None Seen (NORMAL)
[2022-04-16 05:02] LABS: Band Neutrophils Percent 6 % (0-6); Neutrophils Percent Manual 78 % (46-73); Total Cells Counted 100
[2022-04-16 05:03] LABS: Monocytes Absolute Manual 0.14 K/mm3 (0.1-0.90); Monocytes Percent Manual 4 % (3-9)
[2022-04-16 05:04] LABS: Eosinophils Absolute Manual 0.11 K/mm3 (0.02-0.5); Eosinophils Percent Manual 3 % (0-4); Lymphocytes Absolute Manual 0.33 K/mm3 (1.1-4.5); Lymphocytes Percent Manual 9 % (18-44)
--- NOTE | 2022-04-16 07:51 | PCOTNOTE ---
Per RN, hold treatment this AM due to low hemoglobin. Will continue OT per plan of care.
[2022-04-16] MEDS: allopurinoL 300 MG TABLET PO (08:46)
[2022-04-16] MEDS: POTASSIUM CHLORIDE 10 MEQ TABLET.ER PO ×2 (08:46→17:29)
[2022-04-16] MEDS: METOPROLOL TARTRATE 12.5 MG TABLET PO ×2 (08:46→21:11)
[2022-04-16] MEDS: EZETIMIBE 10 MG TABLET PO (08:46)
[2022-04-16] MEDS: CARBIDOPA/LEVODOPA 25/100 MG TABLET 1 TABLET PO ×2 (08:46→17:29)
[2022-04-16] MEDS: SIMVASTATIN 20 MG TABLET 80 MG PO (08:46)
[2022-04-16 11:13] LABS: Toxigenic C. Diff NEGATIVE (NEGATIVE)
[2022-04-16] MEDS: SODIUM CHLORIDE 0.9% IV 250 ML 75 ML IV CONT (12:04)
--- NOTE | 2022-04-16 12:19 | PM.IMPN ---
Progress Note: A&P Assessment and Plan (1) Syncope: Code(s): R55 - Syncope and collapse Status: Acute Assessment and Plan: likely to be vasovagal IV fluid start at [address] on telemetry Recent admission with atrial fibrillation with rapid ventricular rate which converted to sinus rhythm spontaneously at discharge was started on Eliquis but she did not take it. Will place on telemetry Recent MRI done 04/12/2022: No abnormal enhancing brain lesion to suggest intracranial metastatic disease. A few punctate foci of diffusion restriction within bilateral occipital lobes which could represent punctate acute / subacute infarct versus artifact. No large vascular territory infarct. Will consult neurology Recent echocardiogram done on 03/29/2022 with ejection fraction 59% no regional wall motion abnormality. No intracranial masses or thrombi noted at the time. start PT OT telemetry reviewed: Intermittent SVT noted overnight. Currently at sinus rhythm consulted activity aide Episodes of PSVT improved on metoprolol which he is tolerating well. Blood pressure stable on it No evidence of atrial fibrillation during this hospital stay. Continue telemetry monitoring (2) Effusion of elbow: Code(s): M25.429 - Effusion, unspecified elbow Status: Acute Assessment and Plan: local care (3) Laceration of scalp: Code(s): S01.01XA - Laceration without foreign body of scalp, initial encounter Status: Acute Assessment and Plan: local care (4) Acute UTI: Code(s): N39.0 - Urinary tract infection, site not specified Status: Acute Assessment and Plan: patient started on Rocephin recently treated with ciprofloxacin Urine culture with insignificant growth from 04/05/2022 Urine culture has been sent and urine culture no growth to date Completed 3 days course of Rocephin. (5) Chronic kidney disease, stage 3 (moderate): Qualifiers: Chronic kidney disease stage 3 subtype: stage 3a (GFR 45-59) Qualified Code(s): N18.31 - Chronic kidney disease, stage 3a Code(s): N18.3 - Chronic kidney disease, stage 3 (moderate) Status: Acute Assessment and Plan: continue to monitor (6) Megaloblastic anemia: Code(s): D53.1 - Other megaloblastic anemias, not elsewhere classified Status: Acute Assessment and Plan: follow-up in outpatient setting anemia has worsened. Down to 6.8 No obvious signs of bleeding. Will give 1 unit PRBC today. (7) Uterine cancer: Code(s): C55 - Malignant neoplasm of uterus, part unspecified Status: Acute Assessment and Plan: undergoing chemotherapy and radiation therapy follow-up in outpatient setting family opting to go to [place] due to chemo/ radiation treatment few and to get in touch with Dr. Rodriguez Discussed with Dr. Rodriguez 04/16/2022 who is willing to get her transferred however discussed with family and stated that it has been difficult with chemo and radiation being continued. She was recently admitted for similar situation after her 3rd chemo cycle. This is similar with the 4th chemo cycle and wants to hold off until she gets stronger. I think this is reasonable approach as she has very much deconditioned due to ongoing chemoradiation. Plan these to go home home health and follow up with Dr. Corey as outpatient basis to resume/discuss continuing on the radiation rather. Plan Parkinson's disease :will resume home medications Hypokalemia replace and monitor hypomagnesemia: replace and monitor DVT proph: SCD, anemia worsened. will hold off pharmacologic DVT proph Subjective Date/time seen: 04/16/22 12:19 Interval history: This is an 81-year-old female with past medical history significant for Parkinson's, type 2 diabetes mellitus, dyslipidemia, cervical CA patient is currently undergoing chemotherapy she presented to the emergency room after having a sy
[2022-04-16] MEDS: PANTOPRAZOLE 40 MG TABLET PO (14:10)
--- NOTE | 2022-04-16 14:45 | PCPTNOTE ---
The patient treatment was not able to be completed on 04/16/2022 due to patient's hemoglobin 6.8 and patient getting blood transfusion when PT checked on patient. Will plan to continue treatment per plan of care.
[2022-04-16 18:20] LABS: Hematocrit 28.6 % (37.0-47.0); Hemoglobin 9.5 g/dL (12.0-15.0)
[2022-04-16 19:17] LABS: Iron 100 ug/dL (37-170)
[2022-04-16 19:26] LABS: Percent Iron Saturation 51 % (20-50)
[2022-04-16 20:56] LABS: IFOB Positive Control Positive; Immunochemical Fecal Occult Bl Negative (N)
[2022-04-16] MEDS: LOPERAMIDE HCL 2 MG CAPSULE PO (22:56)
[2022-04-17] VITALS (8 sets, daily range): BP systolic 123–155; BP diastolic 73–91; PULSE 77–95; RESP 18–20; TEMP 35.9–36.2; O2SAT 98
[2022-04-17] MEDS: CENTRAL LINE FLUSH 10 ML IV PUSH ×2 (05:32→14:13)
[2022-04-17] MEDS: CENTRAL LINE FLUSH 20 ML IV PUSH (05:32)
[2022-04-17 05:47] LABS: Hematocrit 27.3 % (37.0-47.0); Hemoglobin 8.9 g/dL (12.0-15.0); Immature Platelet Fraction Pct 1.8 % (0.9-11.2); Mean Corpuscular HGB Conc 32.6 g/dl (32-36); Mean Corpuscular Hemoglobin 31.7 pg (26-34); Mean Corpuscular Volume 97.2 fl (80-100); Mean Platelet Volume 9.1 fl (7.4-10.4); Platelet Count Result 110 k/mm3 (150-375); Red Blood Count 2.81 M/mm3 (4.2-5.4); Red Cell Distribution Width 19.6 % (11.5-14.5); White Blood Count 3.1 K/mm3 (4.5-10.0)
[2022-04-17 05:53] LABS: Alanine Aminotransferase 9 U/L (6-35); Albumin Level 2.7 g/dL (3.5-5.1); Alkaline Phosphatase 59 U/L (38-126); Anion Gap 7 mmol/L (8-16); Aspartate Amino Transferase 23 U/L (14-36); Bilirubin,Total 0.4 mg/dL (0.2-1.3); Blood Urea Nitrogen 10 mg/dL (7-17); Calcium 7.6 mg/dL (8.4-10.2); Carbon Dioxide 18 mmol/L (22-30); Chloride 112 mmol/L (98-107); Estimated CRCL calculation 30 ml/min; Estimated Glomerular Filt Rate 60; Glucose 83 mg/dL (65-110); Magnesium 1.6 mg/dL (1.6-2.3); Potassium 3.7 mmol/L (3.4-5.0); Sodium 137 mmol/L (137-145)
[2022-04-17 06:48] LABS: Eosinophils Absolute Manual 0.06 K/mm3 (0.02-0.5); Eosinophils Percent Manual 2 % (0-4); Lymphocytes Absolute Manual 0.31 K/mm3 (1.1-4.5); Monocytes Absolute Manual 0.24 K/mm3 (0.1-0.90); Monocytes Percent Manual 8 % (3-9); Neutrophils Percent Manual 80 % (46-73); Total Cells Counted 100
[2022-04-17 06:49] LABS: Ovalocytes 1+ (NORMAL); Poikilocytosis 1+ (NORMAL)
[2022-04-17 06:50] LABS: Anisocytosis 1+ (NORMAL); Hypochromasia 1+ (NORMAL); Schistocytes None Seen (NORMAL)
[2022-04-17] MEDS: CARBIDOPA/LEVODOPA 25/100 MG TABLET 1 TABLET PO (08:25)
[2022-04-17] MEDS: allopurinoL 300 MG TABLET PO (08:25)
[2022-04-17] MEDS: METOPROLOL TARTRATE 12.5 MG TABLET PO (08:25)
[2022-04-17] MEDS: POTASSIUM CHLORIDE 10 MEQ TABLET.ER PO (08:25)
[2022-04-17] MEDS: PANTOPRAZOLE 40 MG TABLET PO (08:25)
[2022-04-17] MEDS: ACETAMINOPHEN 500 MG TABLET 1000 MG PO (08:31)
[2022-04-17] MEDS: cycloSPORINE 0.4 ML OPHTH SOLUTION 1 DROP EACH EYE (09:39)
--- NOTE | 2022-04-17 10:26 | PM.DS ---
DS: Admitting Diagnosis Discharge Date April 17, 2022 Admitting Diagnosis Syncope DS: Discharge Diagnosis Discharge Diagnosis (1) Syncope: Code(s): R55 - Syncope and collapse Status: Acute Assessment and Plan: likely to be vasovagal IV fluid start at [address] on telemetry Recent admission with atrial fibrillation with rapid ventricular rate which converted to sinus rhythm spontaneously at discharge was started on Eliquis but she did not take it. Will place on telemetry Recent MRI done 04/12/2022: No abnormal enhancing brain lesion to suggest intracranial metastatic disease. A few punctate foci of diffusion restriction within bilateral occipital lobes which could represent punctate acute / subacute infarct versus artifact. No large vascular territory infarct. Will consult neurology Recent echocardiogram done on 03/29/2022 with ejection fraction 59% no regional wall motion abnormality. No intracranial masses or thrombi noted at the time. start PT OT telemetry reviewed: Intermittent SVT noted overnight. Currently at sinus rhythm consulted supervisor anodizing Episodes of PSVT improved on metoprolol which he is tolerating well. Blood pressure stable on it No evidence of atrial fibrillation during this hospital stay. Continue telemetry monitoring (2) Effusion of elbow: Code(s): M25.429 - Effusion, unspecified elbow Status: Acute Assessment and Plan: local care (3) Laceration of scalp: Code(s): S01.01XA - Laceration without foreign body of scalp, initial encounter Status: Acute Assessment and Plan: local care (4) Acute UTI: Code(s): N39.0 - Urinary tract infection, site not specified Status: Acute Assessment and Plan: patient started on Rocephin recently treated with ciprofloxacin Urine culture with insignificant growth from 04/05/2022 Urine culture has been sent and urine culture no growth to date Completed 3 days course of Rocephin. (5) Chronic kidney disease, stage 3 (moderate): Qualifiers: Chronic kidney disease stage 3 subtype: stage 3a (GFR 45-59) Qualified Code(s): N18.31 - Chronic kidney disease, stage 3a Code(s): N18.3 - Chronic kidney disease, stage 3 (moderate) Status: Acute Assessment and Plan: continue to monitor (6) Megaloblastic anemia: Code(s): D53.1 - Other megaloblastic anemias, not elsewhere classified Status: Acute Assessment and Plan: follow-up in outpatient setting anemia has worsened. Down to 6.8 No obvious signs of bleeding. Will give 1 unit PRBC today. (7) Uterine cancer: Code(s): C55 - Malignant neoplasm of uterus, part unspecified Status: Acute Assessment and Plan: undergoing chemotherapy and radiation therapy follow-up in outpatient setting family opting to go to [place] due to chemo/ radiation treatment few and to get in touch with Dr. Rodriguez Discussed with Dr. Rodriguez 04/16/2022 who is willing to get her transferred however discussed with family and stated that it has been difficult with chemo and radiation being continued. She was recently admitted for similar situation after her 3rd chemo cycle. This is similar with the 4th chemo cycle and wants to hold off until she gets stronger. I think this is reasonable approach as she has very much deconditioned due to ongoing chemoradiation. Plan these to go home home health and follow up with Dr. Corey as outpatient basis to resume/discuss continuing on the radiation rather. Plan Parkinson's disease :will resume home medications Hypokalemia replace and monitor hypomagnesemia: replace and monitor DVT proph: SCD, anemia worsened. will hold off pharmacologic DVT proph DS: Summary Hospital Course Hospital Course: 81-year-old female with past medical history significant for Parkinson's, type 2 diabetes mellitus, dyslipidemia, cervical CA patient is currently undergoing c
--- NOTE | 2022-04-17 14:36 | PC.NURSE ---
On 04/17/22, the student, [John Baca], provided care and completed [facility] documentation on this patient. I have reviewed the student's documentation and agree with the findings.
== END 2022-04-17 15:45 | disposition home health service (06) | DRG 312 ==
LOC: ANHED 20:31 → ANH2MED 22:41
PROVIDERS: Emergency Medicine; Internal Medicine; Admitting Provider Internal Medicine; Emergency Provider Emergency Medicine; PCP Family Medicine; Visit Provider Student in an Organized Health Care Education/Training Program
DX: R55 Syncope and collapse (principal); N39.0 Urinary tract infection, site not specified; I13.0 Hypertensive heart and chronic kidney disease with heart failure and stage 1 through stage 4 chronic kidney disease, or unspecified chronic kidney disease; I47.1 Supraventricular tachycardia; I50.9 Heart failure, unspecified; N18.30 Chronic kidney disease, stage 3 unspecified; E11.22 Type 2 diabetes mellitus with diabetic chronic kidney disease; E87.6 Hypokalemia; E83.42 Hypomagnesemia; S01.01XA Laceration without foreign body of scalp, initial encounter; C53.9 Malignant neoplasm of cervix uteri, unspecified; D53.1 Other megaloblastic anemias, not elsewhere classified; E78.5 Hyperlipidemia, unspecified; M25.422 Effusion, left elbow; G20 Parkinson's disease; Z86.711 Personal history of pulmonary embolism; Z87.442 Personal history of urinary calculi; Z87.891 Personal history of nicotine dependence; Z87.11 Personal history of peptic ulcer disease
CPT/HCPCS: 12001; 36415; 36430; 70450; 73080; 73502; 80048; 80053; 81001; 82274; 82607; 82728; 82746; 82948; 83540; 83550; 83735; 85014; 85018; 85025; 85055; 85610; 85730; 86850; 86900; 86901; 86923; 87040; 87086; 87493; 93005; 93308; 96361; 96365; 96367; 96375; 97110; 97162; 97166; 97530; 97535; 99285; A9270; C8924; G0378; J0696; J2997; J3475; J7030; J7040; J7050; P9016

== ENCOUNTER 2022-04-19 16:29 | Outpatient (CLI) | payer OTHER, SELFPAY ==
[2022-04-19 17:02] LABS: Hematocrit 30.2 % (37.0-47.0); Mean Corpuscular HGB Conc 33.1 g/dl (32-36); Mean Corpuscular Hemoglobin 32.3 pg (26-34); Mean Corpuscular Volume 97.4 fl (80-100); Mean Platelet Volume 9.5 fl (7.4-10.4); Platelet Count Result 101 k/mm3 (150-375); Red Cell Distribution Width 19.2 % (11.5-14.5); White Blood Count 4.4 K/mm3 (4.5-10.0)
== END 2022-04-19 16:30 | disposition home or self-care (01) ==
PROVIDERS: PCP Family Medicine; Visit Provider Student in an Organized Health Care Education/Training Program
DX: D53.1 Other megaloblastic anemias, not elsewhere classified (principal)
CPT/HCPCS: 36415; 85027

== ENCOUNTER 2022-04-20 13:29 | Inpatient (IN) | payer OTHER, SELFPAY ==
[2022-04-20] VITALS (8 sets, daily range): BP systolic 119–158; BP diastolic 52–97; PULSE 81–104; RESP 17–20; TEMP 36.3–36.9; O2SAT 97–99; BMI 20.9
--- NOTE | ~2022-04-20 | CT_ITS ---
EXAMINATION: CT brain wo con DATE: 04/20/2022 17:54 INDICATION: new altered mental status . TECHNIQUE: Computed tomography (CT) of the head was performed without intravenous contrast. The mA wa s adjusted according to patient size. Iterative reconstruction technique was employed. The dose-lengt h product was 605.33 mGy-cm. COMPARISON: 04/12/2022 FINDINGS: No acute intracranial hemorrhage or extra-axial fluid collection. No hydrocephalus, mass, or herniation. Loss of schwarz-white differentiation within the right parietal lobe. Unremarkable dural venous sinus attenuation. No acute osseous abnormality. The aerated spaces are clear. Moderate atrophy and mild chronic white matter change. Atherosclerotic intracranial calcification. Bi lateral lens replacements. 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 Results reported telephonically to Dr. Gao by Dr. Maynard at 6:04 PM on 04/20/2022. Reviewed, dictated and finalized at location K. 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 Results reported telephonically to Dr. Gao by Dr. Maynard at 6:04 PM on 03/24.
--- NOTE | ~2022-04-20 | XR_ITS ---
EXAMINATION: XR chest 1V portable Exam Date/Time: 04/20/2022 14:30 CDT HISTORY: cenral line placement verification Comparison: 06/01/2019. RESULT: Lines, tubes, and devices: Right subclavian central line terminates in the right atrium. Lungs and pleura: Minimal bibasilar atelectasis and senescent change. Cardiomediastinal silhouette: Stable. Other: No acute osseous or upper abdominal finding. IMPRESSION: Right subclavian central line terminates in the right atrium. Reviewed, dictated and finalized at location K.
--- NOTE | ~2022-04-20 | MR_ITS ---
EXAMINATION: MR brain/brain stem wo con DATE: 04/21/2022 14:30 INDICATION: Stroke. TECHNIQUE: Magnetic resonance imaging (MRI) of the brain and brainstem was performed without intraven ous contrast. COMPARISON: Head CT 04/20/2022 FINDINGS: There are small acute infarcts in right frontal lobe and right parietal lobe. There is an a cute infarct in right temporal parietal region. There are small acute infarcts in right occipital lob e, right cerebellum, and posterior left frontal lobe. There are scattered areas of nonspecific increa sed T2-weighted signal intensity in the cerebral white matter. There is no intracranial hemorrhage or abnormal mass lesion. The ventricles are normal in size. There are likely changes of ocular lens rep lacement surgeries. The paranasal sinuses are clear. The mastoid air cells are normal. IMPRESSION: 1. Acute infarcts involving the right frontal, temporal, parietal, and occipital lobes, right cerebel lum, and posterior left frontal lobe. 2. Moderate nonspecific cerebral white matter disease, which likely represents chronic small vessel i schemic disease. Reviewed, dictated and finalized at location E. IMPRESSION: 1. Acute infarcts involving the right frontal, temporal, parietal, and occipita l lobes, right cerebellum, and posterior left frontal lobe. 2. Moderate nonspecific cerebral white matter disease, which likely represents chronic small vessel ischemic disease.
--- NOTE | ~2022-04-20 | CT_ITS ---
EXAMINATION: CTA brain carotid DATE: 04/21/2022 14:40 INDICATION: stroke TECHNIQUE: CTA of the head and neck was performed with 100 mL Omnipaque 350 intravenous contrast. Aut omated exposure control and iterative reconstruction technique were employed. The dose-length product was 936.11 mGy-cm. Maximum intensity projection and volume rendered 3D-reconstructions were created by the technologist on a separate workstation. COMPARISON: MRI brain 04/21/2022, CT brain 04/20/2022. FINDINGS: CTA HEAD: No large vessel occlusion, aneurysm, high flow vascular malformation, nidus or extravasation. 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 Calcified plaques in the cavernous carotids, with moderate stenosis of the right cavernous carotid. Calcified plaque in the intradural distal right vertebral artery, wi th moderate stenosis. CTA NECK: Aortic arch and proximal great vessels: Moderate arch calcification. Severe stenosis from calcified p laque at the origin of the left subclavian artery. Moderate narrowing from calcified plaque at the or igins of the brachiocephalic and left common carotid arteries. Right common carotid, carotid bifurcation, and internal carotid artery: Atherosclerosis-descibe if co mplex features: Calcified plaques in the common carotid, bifurcation, and internal carotid arteries.T here is 70% stenosis of the proximal right internal carotid artery relative to normal distal artery l umen diameter (NASCET criteria). Left common carotid, carotid bifurcation, and internal carotid artery: Calcified plaques in the commo n carotid, bifurcation, and internal carotid arteries.There is 50% stenosis of the proximal left inte rnal carotid artery relative to normal distal artery lumen diameter (NASCET criteria). Vertebral arteries: No significant plaque or stenosis. Calcified plaque at the origin of the right ve rtebral artery, with mild stenosis Other findings: Question of prior left thyroidectomy. Biapical pleural scarring and emphysematous shaheed nge. Multilevel degenerative disc disease in the cervical spine. IMPRESSION: No large vessel occlusion. 70% stenosis of the proximal right internal carotid artery relative to nor mal distal artery lumen diameter (NASCET criteria). 50% stenosis of the proximal left internal caroti d artery relative to normal distal artery lumen diameter (NASCET criteria). Severe stenosis at the or igin of the left subclavian artery. Reviewed, dictated and finalized at location K. IMPRESSION: No large vessel occlusion. 70% stenosis of the proximal right internal carotid artery relative to normal distal artery lumen diameter (NASCET criteria). 50% s tenosis of the proximal left internal carotid artery relative to normal distal artery lumen diameter (NASCET criteria). Severe stenosis at the origin of the l eft subclavian artery.
--- NOTE | 2022-04-20 13:34 | ECG_ITS ---
Measurements Intervals [place] Rate: 83 P: 29 ID: [id number] QRS: -14 QRSD: 94 T: -7 QT: 346 QTc: 407 Interpretive Statements SINUS RHYTHM NONSPECIFIC ST AND T-WAVE ABNORMALITY COMPARED TO ECG 04/13/2022 06:23:20 SINUS RHYTHM NOW PRESENT Electronically Signed On 04-21-2022 12:13:15 CDT by Regina Gunn M.D.
[2022-04-20 14:06] LABS: Basophils Percent Auto 0.7 % (0.2-1.2); Eosinophils Absolute Auto 0.1 K/mm3 (0-0.3); Eosinophils Percent Auto 3.1 % (0-4.4); Hematocrit 32.6 % (37.0-47.0); Hemoglobin 10.4 g/dL (12.0-15.0); Immature Granulocyte Absolute 0.19 K/mm3 (0.00-0.031); Immature Granulocyte Percent A 4.6 % (0-0.5); Lymphocytes Absolute Auto 0.32 K/mm3 (0.9-3.2); Lymphocytes Percent Auto 7.7 % (18.3-44.2); Mean Corpuscular HGB Conc 31.9 g/dl (32-36); Mean Corpuscular Hemoglobin 31.5 pg (26-34); Mean Corpuscular Volume 98.8 fl (80-100); Mean Platelet Volume 9.9 fl (7.4-10.4); Monocytes Absolute Auto 0.8 K/mm3 (0.1-0.6); Monocytes Percent Auto 19.8 % (2.6-8.5); Neutrophils Absolute Auto 2.7 K/mm3 (1.3-6.7); Neutrophils Percent Auto 64.1 % (45.5-73.1); Platelet Count Result 113 k/mm3 (150-375); White Blood Count 4.1 K/mm3 (4.5-10.0)
[2022-04-20 14:13] LABS: Alanine Aminotransferase 10 U/L (6-35); Albumin Level 3.6 g/dL (3.5-5.1); Alkaline Phosphatase 84 U/L (38-126); Anion Gap 9 mmol/L (8-16); Aspartate Amino Transferase 22 U/L (14-36); Bilirubin,Total 0.6 mg/dL (0.2-1.3); Blood Urea Nitrogen 18 mg/dL (7-17); Calcium 7.3 mg/dL (8.4-10.2); Carbon Dioxide 20 mmol/L (22-30); Chloride 101 mmol/L (98-107); Estimated CRCL calculation 24 ml/min; Estimated Glomerular Filt Rate 43; Glucose 95 mg/dL (65-110); Potassium 3.6 mmol/L (3.4-5.0); Sodium 130 mmol/L (137-145)
[2022-04-20 14:18] LABS: INR 0.9
[2022-04-20 14:19] LABS: Partial Thromboplastin Time 27.3 SECONDS (22.3-36.8)
[2022-04-20 15:10] LABS: Appearance Urine Clear (Clear); Bilirubin Urine Negative (Negative); Blood Urine Negative (Negative); Color Urine Yellow (Yellow); Glucose Urine UA Negative (Negative); Ketones Urine Negative (Negative); Leukocyte Esterase Ur Negative LEU/UL (Negative); Nitrate Urine Negative (Negative); Protein Urine Negative (Negative); Urobilinogen Urine 0.2 mg/dL (<2.0); pH Urine 6.5 (5.0-9.0)
[2022-04-20 15:31] LABS: Add Urine Microscopic? NO
[2022-04-20] MEDS: SODIUM CHLORIDE 0.9% IV 1,000 ML 999 ML IV CONT (15:37)
--- NOTE | 2022-04-20 15:41 | ED.AMS ---
HPI - Altered Mental Status General Chief Complaint: Altered Mental Status Stated Complaint: confusion Time Seen by Provider: 04/20/22 13:42 History of Present Illness HPI narrative: Patient is an 81-year-old female who presents ER with new altered mental status. Patient has confusion and is having difficulty finding conversations and sentences today. Patient recently hospitalized after having syncope and persistent hypotension. Patient has history of cervical cancer and is undergoing treatments at [facility] with Dr. Rodriguez. Family concerned she could have a UTI. No falls. Related Data Home Medications Medication Instructions Recorded Confirmed colchicine 0.6 mg tablet 0.6 mg PO PRN PRN GOUT FLARE UP 01/04/22 04/20/22 ezetimibe 10 mg-simvastatin 80 mg 1 tablet PO EVERY OTHER DAY 01/04/22 04/20/22 tablet (Vytorin) ondansetron HCl 8 mg tablet 8 mg PO Q6H PRN Nausea 04/12/22 04/20/22 lorazepam 0.5 mg tablet See Rx Instructions .Route 04/13/22 04/20/22 .COMPLEX PRN Nausea cyclosporine 0.05 % eye drops in a 1 drp EACH EYE BID 04/16/22 04/20/22 dropperette Allergies Allergy/AdvReac Type Severity Reaction Status Date / Time latex Allergy Mild rash Verified 04/20/22 19:05 aspirin AdvReac Mild stomach Verified 04/20/22 19:05 pain Review of Systems Review of Systems: ROS unobtainable: Yes unobtainable due to mental status PMFSH Past Medical History Medical History (Updated 04/20/22 @ 21:26 by Rolan Gao MD) Acute ulcer of stomach Anemia Progressively after a year of B12 injections Bladder infection Cervical cancer CHF (congestive heart failure) 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 HLD (hyperlipidemia) HTN (hypertension) Kidney stone At 35-40 y/o Knee fracture Knee cap Osteoarthritis of foot Paroxysmal atrial fibrillation Paroxysmal atrial fibrillation PSVT (paroxysmal supraventricular tachycardia) Pulmonary embolism Skin cancer Stage 3 chronic kidney disease Syncope Wrist fracture, bilateral Surgical History Surgical History (Updated 01/18/22 @ 09:04 by CHARO Reyes) History of appendectomy History of hysteroscopy (01/11/22) hscope D&C History of partial thyroidectomy History of tonsillectomy Social History Social History (Updated 04/14/22 @ 19:22 by Katia Zavaleta MD) Social History: Smoking packs per day: 2.5 Smoking cigarettes per day: 50.0 Years smoked: 20 Smoking pack-years: 50.00 Smoking status: Former smoker Second hand tobacco smoke exposure: No Alcohol intake: current Drinks per week: 14 Alcohol use details: WINE Substance use: never Substance use type: does not use Has the Lack of Transportation Kept You From Medical Appointments or From Getting Medications?: No Within the Past 12 Months, Were You Worried Whether Your Food Would Run Out Before You Got Money to Buy More?: Never True What is Your Housing Situation Today?: I Have Housing Are You Worried That in the Next 2 Months, You May Not Have Your Own Housing to Live In?: No Do You Have Trouble Paying Your Heating Or Electricity Bill?: No Do You Have Trouble Paying For Medicines?: No Are You Currently Unemployed and Looking for Work?: No Highest Level of Education Completed: Bachelor's Degree Do You Have Trouble With Childcare or the Care of a Family Member?: No Additional living arrangements comments: Gender identity (if verbalized by the patient): Female Sexual Orientation (if Verbalized by the Patient): Straight or Heterosexual Spiritual care concerns: No Exam Narrative: GENERAL: Chronically ill-appearing, frail, and in no acute distress. HEAD: Normocephalic, atraumatic. EYES: PERRLand EOMI. ENT: Mucous membranes moist. CHEST: Clear to auscultation. No respiratory distress. Right ch
--- NOTE | 2022-04-20 18:15 | PM.IMHP ---
H&P: HPI History of Present Illness Date/Time: 04/20/22 18:15 Chief Complaint: Altered mental status. Narrative: This is an 81-year-old female with Parkinson's, dyslipidemia, hypertension, paroxysmal atrial fibrillation, chronic kidney disease, gout, and cervical cancer for which she is currently undergoing treatment at [facility] presented to the emergency department from home for evaluation of altered mental status. She is not able to provide an accurate history given her altered mental status and as such majority of the following history is obtained via a review of her electronic medical records as well as discussions with her Avel who is at bedside. The patient is known to the hospitalist service and in fact was just discharged 3 days ago after being admitted with a presumed vasovagal syncope and suspected UTI. She seemed to be doing okay on discharge and home health has been coming in, in fact they were supposed to have repeat labs drawn yesterday at home though the nurses will are unsuccessful in obtaining blood. Yesterday afternoon the patient her came to the outpatient lab to have her labs drawn. Upon returning home last evening she seemed to be more weak and agitated and was complaining of nausea. She developed general confusion as the evening went on which her states had happened several nights while she was in the hospital and it sounds as though that was attributed to sun downers. This morning she was still confused and had difficulties holding conversations, notes that she seems to be having issues getting out the words that she wants to stay however she seems to understand what he is saying. Her vital signs were stable on arrival. Labs were also stable as well and pretty unremarkable. Brain CT showed evidence of an acute right parietal lobe infarction and given her last known well was 24 hours ago she would not be a candidate for intervention. She is being admitted in this setting for further workup. At the time my evaluation she is somewhat anxious and is trying to get up out of bed, reporting that she is having some discomfort in the vaginal area which her states is not unusual from her radiation. Of note she does have a history of paroxysmal atrial fibrillation diagnosed at [facility] earlier this month. She declined anticoagulation at that time. Review of Systems Review of Systems: Review of systems was attempted but limited due to her difficulty speaking and confusion. She denies headache, auditory and visual changes, paresthesias common focal weakness. No chest pain or shortness of breath. She indicates that she is having some discomfort in the suprapubic region it perhaps in the vulvar area but she is not able to describe this to me or her . [facility] Past Medical History Medical History (Updated 04/20/22 @ 23:42 by Amada Coon PA-C) Cardiomyopathy Around 1999 the patient had a cardiomyopathy with EF down to 24%, due to an autoimmune problem, recovered. 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 Hyperlipidemia Hypertension Kidney stone Osteoarthritis of foot Paroxysmal atrial fibrillation Paroxysmal supraventricular tachycardia Peptic ulcer Pulmonary embolism Skin cancer Stage 3 chronic kidney disease Surgical History Surgical History (Updated 04/20/22 @ 23:36 by Amada Coon PA-C) History of appendectomy History of benign breast biopsy History of hysteroscopy (01/11/22) hscope D&C History of partial thyroidectomy History of tonsillectomy Family History Family History (Updated 04/20/22 @ 23:37 by Amada Coon PA-C) Other Family history unknown Social History Social History (Updated 04/20/22 @ 23:37 by Amada Coon PA-C) Social History: Surrogate medical decision maker: Armando Stephenson, spouse. Code status: Full code. Smoking packs per day: 2.5 Smoking cigarettes per day: 50.0 Years smoked: 20 Smoking pack-years: 50.00
--- NOTE | 2022-04-20 18:45 | ADMGEN ---
This patient, Marilyn Stephenson, was admitted to Medical Room 244-. Patient/family oriented to hospital policies and general routines including ID bracelet, bed and alarms, visiting hours, pain management, procedures, bathroom and other care routines, personal items, smoking policy, room service/diet, and visiting hours. Information on how to activate the Rapid Response Team has been discussed. Patient/Family are encouraged to report perceived risks to care and to ask questions if they do not understand what they are told or what they should do.
[2022-04-21] VITALS (12 sets, daily range): BP systolic 93–126; BP diastolic 56–87; PULSE 80–114; RESP 18–20; TEMP 36.4–36.8; O2SAT 96–100
[2022-04-21] MEDS: CLOPIDOGREL BISULFATE 75 MG TABLET PO (01:09)
[2022-04-21] MEDS: SODIUM CHLORIDE 0.9% IV 1,000 ML 100 ML IV CONT (01:10)
[2022-04-21] MEDS: HYDROmorphone HCL INJ (*CRX) 1 MG/ML SYR IV PUSH (02:56)
[2022-04-21 03:53] LABS: Hematocrit 29.5 % (37.0-47.0); Hemoglobin 9.5 g/dL (12.0-15.0); Immature Platelet Fraction Pct 1.7 % (0.9-11.2); Mean Corpuscular HGB Conc 32.2 g/dl (32-36); Mean Corpuscular Hemoglobin 31.6 pg (26-34); Platelet Count Result 128 k/mm3 (150-375); Red Blood Count 3.01 M/mm3 (4.2-5.4); Red Cell Distribution Width 18.6 % (11.5-14.5); White Blood Count 4.7 K/mm3 (4.5-10.0)
[2022-04-21 04:16] LABS: Anion Gap 9 mmol/L (8-16); Blood Urea Nitrogen 13 mg/dL (7-17); Calcium 7.2 mg/dL (8.4-10.2); Carbon Dioxide 19 mmol/L (22-30); Chloride 108 mmol/L (98-107); Estimated CRCL calculation 26 ml/min; Estimated Glomerular Filt Rate 48; Glucose 107 mg/dL (65-110); Magnesium 1.1 mg/dL (1.6-2.3); Potassium 3.4 mmol/L (3.4-5.0); Sodium 136 mmol/L (137-145)
[2022-04-21] MEDS: METOPROLOL TARTRATE 12.5 MG TABLET PO ×2 (09:30→20:35)
[2022-04-21] MEDS: CARBIDOPA/LEVODOPA 25/100 MG TABLET 1 TABLET PO ×2 (09:30→17:20)
[2022-04-21] MEDS: EZETIMIBE 10 MG TABLET PO (09:31)
[2022-04-21] MEDS: SIMVASTATIN 20 MG TABLET 80 MG PO (09:31)
[2022-04-21] MEDS: cycloSPORINE 0.4 ML OPHTH SOLUTION 1 DROP EACH EYE ×2 (09:31→20:35)
[2022-04-21] MEDS: allopurinoL 300 MG TABLET PO (09:31)
--- NOTE | 2022-04-21 09:37 | WPDNEURCNPN ---
Assessment and Plan Assessment and plan (1) Cerebrovascular accident: Code(s): I63.9 - Cerebral infarction, unspecified Status: Acute (2) Paroxysmal atrial fibrillation: Code(s): I48.0 - Paroxysmal atrial fibrillation Status: Acute (3) Hyperlipidemia: Code(s): E78.5 - Hyperlipidemia, unspecified Status: Acute (4) Hypertension: Code(s): I10 - Essential (primary) hypertension Status: Acute Plan Marilyn foster is an 81 year old female with a history of atrial fibrillation, HTN, HLD, and cervical cancer who presented due to confusion and aphasia. Found to have R MCA territory stroke on CT. Likely cardioembolic in etiology given underlying atrial fibrillation. - MRI brain w/o contrast - CTA head and neck - Surface echo - Recommend anticoagulation - Eliquis 2.5mg BID - Continue simvastatin and ezetimibe Consult date: 04/21/22 Time Seen: 09:37 Reason for consult: Stroke HPI: Marilyn Foster is a 81 year old female with a history of cervical cancer, atrial fibrillation, HLD, HTN who presented due to altered mental status. Patient was recently admitted for UTI, vasovagal syncope. She was discharged 3 days ago and was doing well at home. On the she developed confusion and word-finding difficulties. She had similar episodes during the prior admission as well. She was taken to [place] ED where her BP was 119/52. CT head showed R MCA territory stroke, which was new from prior imaging. Her labs were unremarkable including UA. She candidate for tPA due to unknown LKW. She was admitted for further work-up. Patient is not currently on any anticoagulation for her atrial fibrillation. She also has an appirin allergy. She was given a dose of Plavix on admission. Review of Systems Review of Systems: Patient response to questions with I don't know ROS unobtainable: Yes unobtainable due to medical condition [facility] Past Medical History Medical History Cardiomyopathy Around 1999 the patient had a cardiomyopathy with EF down to 24%, due to an autoimmune problem, recovered. 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 Code status: Full code. Smoking packs per day: 2.5 Smoking cigarettes per day: 50.0 Years smoked: 20 Smoking pack-years: 50.00 Smoking status: Former smoker Second hand tobacco smoke exposure: No Alcohol intake: current Drinks per week: 14 Alcohol use details: 1 to 2 glasses of wine a night. Substance use: never Substance use type: does not use Has the Lack of Transportation Kept You From Medical Appointments or From Getting Medications?: No Within the Past 12 Months, Were You Worried Whether Your Food Would Run Out Before You Got Money to Buy More?: Never True What is Your Housing Situation Today?: I Have Housing Are You Worried That in the Next 2 Months, You May Not Have Your Own Housing to Live In?: No Do You Have Trouble Paying Your Heating Or Electricity Bill?: No Do You Have Trouble Paying For Medicines?: No Are You Currently Unemployed and Looking for Work?: No Highest Level of Education Completed: Bachelor's Degree Do You Have Trouble With C
--- NOTE | 2022-04-21 11:09 | PM.IMPN ---
Progress Note: A&P Assessment and Plan (1) Cerebrovascular accident: Code(s): I63.9 - Cerebral infarction, unspecified Status: Acute Assessment and Plan: Neuro consult pending, PT/OT/ST eval ordered, continue statin, given plavix, acute CVA noted on CT of the right parietal lobe in the right MCA distribution brain MRI performed showing multiple infarcts involving the right frontal, temporal, parietal and occipital lobes, right cerebellum as well as posterior left frontal lobe (2) Hyponatremia: Code(s): E87.1 - Hypo-osmolality and hyponatremia Status: Acute Assessment and Plan: improved with IVF (3) Renal insufficiency: Code(s): N28.9 - Disorder of kidney and ureter, unspecified Status: Acute Assessment and Plan: improving with hydration, monitor (4) Cervical cancer: Code(s): C53.9 - Malignant neoplasm of cervix uteri, unspecified Status: Acute Assessment and Plan: Status post brachytherapy and external beam radiation. She has also had a couple of rounds of chemotherapy but has not tolerated that well more recently. She is followed by Dr. Rodriguez at [facility]. (5) Paroxysmal atrial fibrillation: Code(s): I48.0 - Paroxysmal atrial fibrillation Status: Acute Assessment and Plan: Currently in sinus rhythm, anticoagulation declined (6) Parkinson disease: Code(s): G20 - Parkinson's disease Status: Acute Assessment and Plan: Continue carbidopa-levodopa. (7) Chronic anemia: Code(s): D64.9 - Anemia, unspecified Status: Acute Assessment and Plan: stable, continue to monitor, baseline between 9 and 10 Plan 04/11/22 1600: Plan is to get patient transferred to [facility] for their stroke team and Oncology Services. Called and spoke with Dr Mccoy who accepted the patient onto their consulting stroke team service, also accepted by laborer car barn/onc, Dr Almanzar. Patient now awaiting bed for transfer. DVT prophylaxis with SCDs GI prophylaxis not indicated Code status full code Subjective Date/time seen: 04/21/22 11:09 Interval history: No overnight events. Patient has very flattened affect today, spoke with family member in the room and answered all questions. Family requesting transfer to [facility] for care by their oncology and stroke team. Review of Systems Review of Systems: ROS unobtainable: Yes unobtainable due to medical condition Exam Narrative: General: No acute distress, very slowed cognition, withdrawn HEENT: Atraumatic, normocephalic, mucous membranes moist CV: Regular rate and rhythm, S1, S2 Lungs: Clear to auscultation bilaterally, no rales or crackles noted, no wheezes, good air entry Abdomen: Soft, nontender, nondistended Extremities: Normal to inspection Skin: No rashes noted, no lesions or wounds seen Psych: dysthymic, flattened affect Objective Data Vital Signs Vital Signs: Vital Signs - 24 hr 04/20/22 13:30 04/20/22 14:12 04/20/22 14:13 Temperature 97.4 F L 98.5 F Pulse Rate 92 81 81 Respiratory Rate 17 18 Blood Pressure 119/52 L 139/89 Pulse Oximetry 97 99 Oxygen Delivery 04/20/22 18:15 04/20/22 18:55 04/20/22 18:53 Temperature 97.9 F Pulse Rate 98 101 H 104 H Respiratory Rate 18 18 Blood Pressure 150/94 H 158/97 H Pulse Oximetry 98 99 Oxygen Delivery 04/20/22 21:55 04/20/22 20:00 04/21/22 00:00 Temperature 97.3 F L Pulse Rate 100 97 100 Respiratory Rate 20 Blood Pressure 128/78 Pulse Oximetry 99 Oxygen Delivery 04/20/22 20:00 04/21/22 01:58 04/21/22 04:00 Temperature 98.0 F Pulse Rate 101 H 112 H Respiratory Rate 20 Blood Pressure 126/78 Pulse Oximetry 98 Oxygen Delivery Room Air 04/21/22 06:00 04/21/22 09:30 04/21/22 07:40 Temperature 97.9 F Pulse Rate 114 H 98 Respiratory Rate 18 Blood Pressure 122/87 Pulse Oximetry 96 Oxygen Delivery Room Air Intake/Output
--- NOTE | 2022-04-21 12:01 | PCSTNOTE ---
Bedside swallowing evaluation completed. Patient presents with slightly decreased swallowing functional abilities, however, overall swallowing abilities are within functional limits. Due to patient's overall weakened condition at this time soft and bite sized diet (level 6) with thin liquids is recommended. Swallowing precaution recommendations documented in patient record. No speech therapy recommended. Thank you for the referral of this patient.
--- NOTE | 2022-04-21 14:27 | PCPTNOTE ---
1415 Patient out of room going to get MRI and CTA done according to WERO Ramírez.
[2022-04-21 22:10] LABS: EDCOVIDSCREEN Negative (Negative)
[2022-04-22] VITALS: PULSE 71
[2022-04-22 04:00] VITALS: PULSE 68
[2022-04-22 04:56] LABS: Alanine Aminotransferase 6 U/L (6-35); Albumin Level 2.7 g/dL (3.5-5.1); Alkaline Phosphatase 68 U/L (38-126); Anion Gap 8 mmol/L (8-16); Aspartate Amino Transferase 17 U/L (14-36); Bilirubin,Total 0.3 mg/dL (0.2-1.3); Blood Urea Nitrogen 18 mg/dL (7-17); Calcium 7.3 mg/dL (8.4-10.2); Carbon Dioxide 20 mmol/L (22-30); Chloride 110 mmol/L (98-107); Estimated CRCL calculation 20 ml/min; Estimated Glomerular Filt Rate 33; Glucose 100 mg/dL (65-110); Potassium 3.4 mmol/L (3.4-5.0); Sodium 138 mmol/L (137-145)
[2022-04-22 04:57] LABS: Basophils Percent Auto 0.3 % (0.2-1.2); Eosinophils Absolute Auto 0.2 K/mm3 (0-0.3); Eosinophils Percent Auto 6.9 % (0-4.4); Hematocrit 26.5 % (37.0-47.0); Hemoglobin 8.4 g/dL (12.0-15.0); Immature Granulocyte Percent A 2.9 % (0-0.5); Lymphocytes Absolute Auto 0.29 K/mm3 (0.9-3.2); Lymphocytes Percent Auto 8.3 % (18.3-44.2); Mean Corpuscular HGB Conc 31.7 g/dl (32-36); Mean Corpuscular Hemoglobin 31.3 pg (26-34); Mean Corpuscular Volume 98.9 fl (80-100); Mean Platelet Volume 9.4 fl (7.4-10.4); Monocytes Absolute Auto 0.6 K/mm3 (0.1-0.6); Monocytes Percent Auto 16.3 % (2.6-8.5); Neutrophils Absolute Auto 2.3 K/mm3 (1.3-6.7); Neutrophils Percent Auto 65.3 % (45.5-73.1); Platelet Count Result 107 k/mm3 (150-375); Red Blood Count 2.68 M/mm3 (4.2-5.4); White Blood Count 3.5 K/mm3 (4.5-10.0)
[2022-04-22 05:07] VITALS: BP 137/82; PULSE 84; RESP 21; TEMP 36.4; O2SAT 100
--- NOTE | 2022-05-07 20:25 | PM.TDS ---
Transfer Discharge Sum: Prov Provider Date of admission: 04/21/22 13:52 Primary care physician: Taras Mirza DO Admitting clinician: Fidel Parry MD Consults: 04/20/22 Consult to Physician Routine Comment: Spoke w/ [id number] (, [place]) Consulting Provider: Iona Hurt lead installer/MD group to consult: Neurology Reason for consultation: CVA Has provider been notified: Yes DS: Admitting Diagnosis Discharge Date 04/22/22 Admitting Diagnosis altered mental status DS: Discharge Diagnosis Discharge Diagnosis (1) Cerebrovascular accident: Code(s): I63.9 - Cerebral infarction, unspecified Status: Acute Assessment and Plan: Neuro consult pending, PT/OT/ST eval ordered, continue statin, given plavix, acute CVA noted on CT of the right parietal lobe in the right MCA distribution brain MRI performed showing multiple infarcts involving the right frontal, temporal, parietal and occipital lobes, right cerebellum as well as posterior left frontal lobe (2) Hyponatremia: Code(s): E87.1 - Hypo-osmolality and hyponatremia Status: Acute Assessment and Plan: improved with IVF (3) Renal insufficiency: Code(s): N28.9 - Disorder of kidney and ureter, unspecified Status: Acute Assessment and Plan: improving with hydration, monitor (4) Cervical cancer: Code(s): C53.9 - Malignant neoplasm of cervix uteri, unspecified Status: Acute Assessment and Plan: Status post brachytherapy and external beam radiation. She has also had a couple of rounds of chemotherapy but has not tolerated that well more recently. She is followed by Dr. Rodriguez at [place]. (5) Paroxysmal atrial fibrillation: Code(s): I48.0 - Paroxysmal atrial fibrillation Status: Acute Assessment and Plan: Currently in sinus rhythm, anticoagulation declined (6) Parkinson disease: Code(s): G20 - Parkinson's disease Status: Acute Assessment and Plan: Continue carbidopa-levodopa. (7) Chronic anemia: Code(s): D64.9 - Anemia, unspecified Status: Acute Assessment and Plan: stable, continue to monitor, baseline between 9 and 10 Plan 04/11/22 1600: Plan is to get patient transferred to [facility] for their stroke team and Oncology Services. Called and spoke with Dr Mccoy who accepted the patient onto their consulting stroke team service, also accepted by medicinal plant picker/onc, Dr Almanzar. Patient now awaiting bed for transfer. DVT prophylaxis with SCDs GI prophylaxis not indicated Code status full code Transfer Discharge Sum: Med Medications Active and Home Medications: Home Medications carbidopa 25 mg-levodopa 100 mg tablet 1 tablet PO BID #180 tabs 10/05/21 [Rx Confirmed 04/20/22] colchicine 0.6 mg tablet 0.6 mg PO PRN PRN GOUT FLARE UP 01/04/22 [History Confirmed 04/20/22] ezetimibe 10 mg-simvastatin 80 mg tablet (Vytorin) 1 tablet PO EVERY OTHER DAY 01/04/22 [History Confirmed 04/20/22] acetaminophen 500 mg tablet 1,000 mg PO Q6H PRN Mild Pain (1-3) Or Fever 10 days #60 tabs 01/12/22 [Rx Confirmed 04/20/22] allopurinol 300 mg tablet 300 mg PO DAILY #90 tabs 01/28/22 [Rx Confirmed 04/20/22] ondansetron HCl 8 mg tablet 8 mg PO Q6H PRN Nausea 04/12/22 [History Confirmed 04/20/22] lorazepam 0.5 mg tablet See Rx Instructions .Route .COMPLEX PRN Nausea 04/13/22 [History Confirmed 04/20/22] cyclosporine 0.05 % eye drops in a dropperette 1 drp EACH EYE BID 04/16/22 [History Confirmed 04/20/22] metoprolol tartrate 25 mg tablet 12.5 mg PO BID 1 month #30 tabs 04/17/22 [Rx Confirmed 04/20/22] Transfer Discharge Sum: Hosp Hospital Course Hospital course: 81-year-old female with Parkinson's, dyslipidemia, hypertension, paroxysmal atrial fibrillation, chronic kidney disease, gout, and cervical cancer for which she is currently undergoing treatment at [facility] presented to the emergency department from home for evaluation of altered
== END 2022-04-22 07:14 | disposition short-term general hospital (02) | DRG 65 ==
LOC: ANHED 17:48 → ANH2MED 18:13
PROVIDERS: Physician Assistant; Admitting Provider Family Medicine; Emergency Provider Emergency Medicine; PCP Family Medicine; Visit Provider Student in an Organized Health Care Education/Training Program
DX: I63.9 Cerebral infarction, unspecified (principal); E87.1 Hypo-osmolality and hyponatremia; R47.01 Aphasia; G20 Parkinson's disease; I12.9 Hypertensive chronic kidney disease with stage 1 through stage 4 chronic kidney disease, or unspecified chronic kidney disease; N18.30 Chronic kidney disease, stage 3 unspecified; C53.9 Malignant neoplasm of cervix uteri, unspecified; D64.9 Anemia, unspecified; I48.0 Paroxysmal atrial fibrillation; E78.5 Hyperlipidemia, unspecified; M10.9 Gout, unspecified; Z20.822 Contact with and (suspected) exposure to COVID-19; Z79.899 Other long term (current) drug therapy; Z86.711 Personal history of pulmonary embolism; Z87.891 Personal history of nicotine dependence; Z92.3 Personal history of irradiation
CPT/HCPCS: 36415; 51701; 70450; 70496; 70498; 70551; 71045; 80048; 80053; 81003; 83735; 85025; 85027; 85055; 85610; 85730; 87426; 92610; 93005; 96361; 96374; 97165; 99285; A9270; C9803; G0378; J1170; J7030; Q9967

== ENCOUNTER 2022-06-01 14:42 | Observation (INO) | payer OTHER, SELFPAY ==
[2022-06-01] VITALS (25 sets, daily range): BP systolic 104–166; BP diastolic 58–71; PULSE 82–107; RESP 16–22; TEMP 37.1; O2SAT 96–100
--- NOTE | ~2022-06-01 | NM_ITS ---
EXAMINATION: NM raegan stress w perfusion DATE: 06/03/2022 13:03 INDICATION: Chest pain. TECHNIQUE: Rest images were obtained following intravenous administration of 9.1 mCi Tc99m tetrofosmi n (Myoview). The patient was infused intravenously with Lexiscan (regadenoson). Then, 27.5 mCi Tc99m tetrofosmin (Myoview) was administered intravenously, and stress images were obtained. Data was recon structed into short axis and horizontal and vertical long axis SPECT images. Gated SPECT images were also obtained. COMPARISON: Chest CT 06/01/2022 FINDINGS: There is a small, mild, fixed perfusion defect involving mid inferolateral segment of left ventricle, consistent with infarct. No reversible component to suggest ischemia. There is no segment al wall motion abnormality. Left ventricular ejection fraction measures 55%. IMPRESSION: 1. Small area of mild infarct involving mid inferolateral segment of left ventricle. Increased activi ty below the diaphragm decreases sensitivity and specificity. 2. Normal left ventricular ejection fraction measuring 55%. Reviewed, dictated and finalized at location A. CAL OFFICER PSYCHIATRY IMPRESSION: 1. Small area of mild infarct involving mid inferolateral segment of left ventr icle. Increased activity below the diaphragm decreases sensitivity and specific ity. 2. Normal left ventricular ejection fraction measuring 55%.
--- NOTE | ~2022-06-01 | XR_ITS ---
EXAMINATION: XR chest 2V Exam Date/Time: 06/01/2022 15:18 PRINT MANAGER HISTORY: MIDSTERNAL CHEST PAIN X 1DAY. HX AFIB, HTN Comparison: 04/20/2022, 06/01/2019. RESULT: Lines, tubes, and devices: None. Lungs and pleura: Senescent and possible emphysematous changes. No focal consolidation, pneumothorax , or large effusion. Cardiomediastinal silhouette: Stable. Other: No acute osseous or upper abdominal finding. IMPRESSION: No acute cardiopulmonary process. Reviewed, dictated and finalized at location K. T MANAGER
--- NOTE | ~2022-06-01 | CT_ITS ---
EXAMINATION: CTA chest PE protocol DATE: 06/01/2022 18:19 INDICATION: pleuritic chest pain, hx of cancer TECHNIQUE: Computed tomography angiography (CTA) of the chest was performed with 100 mL Omnipaque-350 intravenous contrast timed to evaluate the pulmonary arteries. Coronal maximum intensity projection 3D-reconstructions were created by the technologist. The dose-length product (DLP) was 198.05 mGy-cm. Automated exposure control and iterative reconstruction technique were employed. COMPARISON: CT abdomen and pelvis 05/20/2019. FINDINGS: Lung parenchyma and airways: Senescent and emphysematous change. Dependent atelectasis. Pleura: Unremarkable. Thoracic inlet, axillae and chest wall: Unremarkable. Thoracic aorta: Mild ectasia. Calcified and noncalcified atherosclerotic plaque. Mediastinum: Dilated central pulmonary arteries as can be seen with pulmonary arterial hypertension. Heart and pericardium: Cardiomegaly. Mild pericardial fluid/thickening mild aortic valve and mitral c alcification. Coronary artery calcifications: Moderate. Upper abdomen: No significant finding. Bones: No acute osseous finding. Pulmonary arteries: Study quality: Adequate. No pulmonary emboli detected. IMPRESSION: No CT evidence of acute pulmonary embolus. Cardiomegaly, with small pericardial effusion versus peric ardial thickening as can be seen with pericarditis. Reviewed, dictated and finalized at location K. DCARE WORKER IMPRESSION: No CT evidence of acute pulmonary embolus. Cardiomegaly, with small pericardial effusion versus pericardial thickening as can be seen with pericarditis.
--- NOTE | 2022-06-01 14:43 | ECG_ITS ---
Measurements Intervals [place] Rate: 103 P: 49 W[place]: 147 QRS: 16 QRSD: 94 T: 25 QT: 338 QTc: 444 Interpretive Statements SINUS TACHYCARDIA POSSIBLE LEFT ATRIAL ENLARGEMENT [-0.1mV P WAVE IN V1/V2] MINIMAL ST DEPRESSION [0.025+ mV ST DEPRESSION] ABNORMAL RHYTHM ECG COMPARED TO ECG 04/20/2022 14:57:26 SLIGHTLY INCREASED HEART RATE NO OTHER SIGNIFICANT CHANGE Electronically Signed On 06-02-2022 8:27:58 [employer] by Andrea Hall M.D.
[2022-06-01 15:07] LABS: Basophils Percent Auto 0.3 % (0.2-1.2); Eosinophils Absolute Auto 0.2 K/mm3 (0-0.3); Eosinophils Percent Auto 2.9 % (0-4.4); Hematocrit 32.1 % (37.0-47.0); Hemoglobin 9.9 g/dL (12.0-15.0); Immature Granulocyte Absolute 0.06 K/mm3 (0.00-0.031); Immature Granulocyte Percent A 0.9 % (0-0.5); Lymphocytes Absolute Auto 0.48 K/mm3 (0.9-3.2); Lymphocytes Percent Auto 7.3 % (18.3-44.2); Mean Corpuscular HGB Conc 30.8 g/dl (32-36); Mean Corpuscular Hemoglobin 32.2 pg (26-34); Mean Corpuscular Volume 104.6 fl (80-100); Mean Platelet Volume 9.4 fl (7.4-10.4); Monocytes Percent Auto 14.9 % (2.6-8.5); Neutrophils Absolute Auto 4.9 K/mm3 (1.3-6.7); Neutrophils Percent Auto 73.7 % (45.5-73.1); Platelet Count Result 161 k/mm3 (150-375); Red Blood Count 3.07 M/mm3 (4.2-5.4); Red Cell Distribution Width 21.2 % (11.5-14.5); White Blood Count 6.6 K/mm3 (4.5-10.0)
[2022-06-01 15:18] LABS: INR 1.2; Prothrombin Time 14.9 Seconds (11.1-14.7)
[2022-06-01 15:19] LABS: Partial Thromboplastin Time 30.9 SECONDS (22.3-36.8)
[2022-06-01 15:22] LABS: Alanine Aminotransferase 14 U/L (6-35); Albumin Level 4.3 g/dL (3.5-5.1); Alkaline Phosphatase 153 U/L (38-126); Anion Gap 9 mmol/L (8-16); Aspartate Amino Transferase 29 U/L (14-36); Bilirubin,Total 0.3 mg/dL (0.2-1.3); Blood Urea Nitrogen 25 mg/dL (7-17); Calcium 8.2 mg/dL (8.4-10.2); Carbon Dioxide 21 mmol/L (22-30); Chloride 112 mmol/L (98-107); Estimated CRCL calculation 25 ml/min; Estimated Glomerular Filt Rate 48; Glucose 112 mg/dL (65-110); Lipase 152 U/L (23-300); Potassium 3.8 mmol/L (3.4-5.0); Sodium 142 mmol/L (137-145)
[2022-06-01 15:40] LABS: Troponin I 0.164 ng/mL (0.000-0.034)
--- NOTE | 2022-06-01 17:00 | ED.CHESTPAIN ---
HPI - Chest Pain General Chief Complaint: Chest Pain Stated Complaint: chest pain Time Seen by Provider: 06/01/22 16:26 History of Present Illness HPI narrative: Patient is an 81-year-old female with a history of uterine cancer status postchemotherapy and radiation, CVA, paroxysmal A. fib on Eliquis, hyperlipidemia, hypertension presenting with chest pain. Patient states that approximately 3 hours ago she developed chest tightness and pain. She initially thought that it was her bra strap so she took off her bra but the pain continued. States that it is in the center of her chest and it is worsened with deep breathing. She denies dyspnea, lightheadedness, palpitations. Denies recent fevers or cough, abdominal pain, nausea or vomiting, diarrhea. Denies lower extremity swelling. Related Data Home Medications Medication Instructions Recorded Confirmed colchicine 0.6 mg tablet 0.6 mg PO PRN PRN GOUT FLARE UP 01/04/22 05/20/22 ondansetron HCl 8 mg tablet 8 mg PO Q6H PRN Nausea 04/12/22 05/20/22 lorazepam 0.5 mg tablet See Rx Instructions .Route 04/13/22 05/20/22 .COMPLEX PRN Nausea cyclosporine 0.05 % eye drops in a 1 drp EACH EYE BID 04/16/22 05/20/22 dropperette Allergies Allergy/AdvReac Type Severity Reaction Status Date / Time latex Allergy Mild rash Verified 05/20/22 12:52 aspirin AdvReac Mild stomach Verified 05/20/22 12:52 pain Review of Systems Review of Systems: All systems reviewed & are unremarkable except as noted in HPI and below PMFSH Past Medical History Medical History Cardiomyopathy Around 1999 the patient had a cardiomyopathy with EF down to 24%, due to an autoimmune problem, recovered. 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 Hyperlipidemia Hypertension Kidney stone Osteoarthritis of foot Paroxysmal atrial fibrillation Paroxysmal supraventricular tachycardia Peptic ulcer Pulmonary embolism Skin cancer Stage 3 chronic kidney disease Surgical History Surgical History History of appendectomy History of benign breast biopsy History of hysteroscopy (01/11/22) hscope D&C History of partial thyroidectomy History of tonsillectomy Family History Family History Father Heart disease Mother Breast cancer Other Family history unknown Social History Social History (Updated 06/02/22 @ 01:42 by Cailin Pena NP) Social History: The patient is and lives with her who is the durable power assistant district attorney for healthcare. The patient has 1 daughter. 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 She is a former smoker and she does not use any alcohol marijuana or illicit drugs. Surrogate medical decision maker: Armando Stephenson, spouse. Code status: Full code. Smoking packs per day: 2.5 Smoking cigarettes per day: 50.0 Years smoked: 20 Smoking pack-years: 50.00 Smoking status: Former smoker Second hand tobacco smoke exposure: No Alcohol intake: former Substance use: never Substance use type: does not use Lack of Transportation: No Lack of Food: Never True Current Housing: I Have Housing Concerned About Future Housing: No Difficulty Paying Gas/Electric Bills: No Difficulty Paying for Meds: No Currently Unemployed: No Education: Bachelor's Degree Difficulty w/ Childcare or Family Care: No Additional living arrangements comments: Patient lives with her in [place]. Spiritual care concerns: No Exam Narrative: GENERAL: Well-appearing, well-nourished, and in no acute distress. HEAD: Normocephalic, atraumatic. EYES: PERRLA and EOMI. ENT: Nares clear, no rhinorrhea or epistaxis. Mucous membranes moist. NECK: Supple. CHEST: Clear to auscultation. No respiratory distress. HEART: Regular rate and rhythm. No murmur heard. Normal peripheral puls
[2022-06-01 17:49] LABS: Influenza A QL RT-PCR Negative (Negative); Influenza B QL RT-PCR Negative (Negative); SARS-CoV-2 RNA PCR Negative
[2022-06-01] MEDS: ASPIRIN 81 MG CHEWABLE TABLET 324 MG PO (17:52)
[2022-06-01] MEDS: NITROGLYCERIN SL 0.4 MG TABLET SUBLINGUAL (17:52)
[2022-06-01 18:22] LABS: Troponin I 0.135 ng/mL (0.000-0.034)
--- NOTE | 2022-06-01 18:35 | PC.NURSE ---
Patient refuses to wear hospital blood pressure cuff. Patient brought her own wrist cuff from home and is letting com writer use that to obtain blood pressures.
--- NOTE | 2022-06-01 19:03 | PC.NURSE ---
Patient ambulatory to ED restroom with her and back without difficulty.
[2022-06-01 21:32] LABS: Troponin I 0.139 ng/mL (0.000-0.034)
--- NOTE | 2022-06-01 21:53 | PM.IMHP ---
H&P: HPI History of Present Illness Date/Time: 06/01/22 21:53 Chief Complaint: Chest pain Narrative: This 81-year-old female patient who has a history of uterine cancer. The patient has recently completed her chemotherapy and radiation. She has had a history of CVA and paroxysmal AFib on Eliquis. She also has a history of hyperlipidemia and hypertension. The patient stated that 3 hours prior to coming in the emergency room she has some tightness in her chest. The patient stated that she thought it was her bra that was too tired in on buckled her bra strap with the pain still continued. She complained of midsternal chest that was worse with deep breathing. Depression is had no prior history of coronary artery disease. H&H is 9.9 and 32.1. Which is her baseline. When I saw her in the emergency room her chest pain had resolved. Her troponin baseline is 0.164 and 0.135 and last troponin 0.139. EKG was read as sinus tachycardia. Possible of atrial enlargement. The patient was given a full-strength aspirin and nitroglycerin. CTA shows no CT evidence of acute pulmonary embolism cardiomegaly with small pericardial effusion versus pericardial thickening is seen with pericarditis. Cardiology has been consulted. The patient is being admitted to observation status on the date of service of 06/01/2022. Review of Systems Review of Systems: See HPI [facility] Past Medical History Medical History Cardiomyopathy Around 1999 the patient had a cardiomyopathy with EF down to 24%, due to an autoimmune problem, recovered. 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 Hyperlipidemia Hypertension Kidney stone Osteoarthritis of foot Paroxysmal atrial fibrillation Paroxysmal supraventricular tachycardia Peptic ulcer Pulmonary embolism Skin cancer Stage 3 chronic kidney disease Surgical History Surgical History History of appendectomy History of benign breast biopsy History of hysteroscopy (01/11/22) hscope D&C History of partial thyroidectomy History of tonsillectomy Family History Family History Father Heart disease Mother Breast cancer Other Family history unknown Social History Social History (Updated 06/02/22 @ 01:42 by Cailin Pena NP) Social History: The patient is and lives with her who is the durable power chef german for healthcare. The patient has 1 daughter. 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 She is a former smoker and she does not use any alcohol marijuana or illicit drugs. Surrogate medical decision maker: Armando Stephenson, spouse. Code status: Full code. Smoking packs per day: 2.5 Smoking cigarettes per day: 50.0 Years smoked: 20 Smoking pack-years: 50.00 Smoking status: Former smoker Second hand tobacco smoke exposure: No Alcohol intake: former Substance use: never Substance use type: does not use Lack of Transportation: No Lack of Food: Never True Current Housing: I Have Housing Concerned About Future Housing: No Difficulty Paying Gas/Electric Bills: No Difficulty Paying for Meds: No Currently Unemployed: No Education: Bachelor's Degree Difficulty w/ Childcare or Family Care: No Additional living arrangements comments: Patient lives with her in [place]. Spiritual care concerns: No Meds Home Medications and Allergies Home Medications Medication Instructions Recorded Confirmed Type carbidopa 25 mg-levodopa 100 mg 1 tablet PO BID #180 tabs 10/05/21 05/20/22 Rx tablet colchicine 0.6 mg tablet 0.6 mg PO PRN PRN GOUT FLARE UP 01/04/22 05/20/22 History acetaminophen 500 mg tablet 1,000 mg PO Q6H PRN Mild Pain 01/12/22 05/20/22 Rx (1-3) Or Fever 10 days #60 tabs allopurinol 300 mg tablet 300 mg PO DAILY #90 tabs 01/28/22 05/20/22 Rx ondansetro
[2022-06-02] VITALS (65 sets, daily range): BP systolic 94–150; BP diastolic 49–82; PULSE 70–95; RESP 12–23; TEMP 36.2–36.6; O2SAT 97–100
--- NOTE | 2022-06-02 03:13 | PC.NURSE ---
Report received from WERO Bryant. Assumed care of patient at this time.
--- NOTE | 2022-06-02 04:04 | PC.NURSE ---
Patient ambulated to the bathroom and back to her room with a steady gait. Patient denies any pain at this time. Patient back on stretcher with call light in reach.
[2022-06-02 06:38] LABS: Basophils Percent Auto 0.4 % (0.2-1.2); Eosinophils Absolute Auto 0.1 K/mm3 (0-0.3); Eosinophils Percent Auto 1.9 % (0-4.4); Hematocrit 26.7 % (37.0-47.0); Hemoglobin 8.3 g/dL (12.0-15.0); Immature Granulocyte Absolute 0.02 K/mm3 (0.00-0.031); Immature Granulocyte Percent A 0.4 % (0-0.5); Lymphocytes Absolute Auto 0.25 K/mm3 (0.9-3.2); Lymphocytes Percent Auto 4.9 % (18.3-44.2); Mean Corpuscular HGB Conc 31.1 g/dl (32-36); Mean Corpuscular Hemoglobin 32.3 pg (26-34); Mean Corpuscular Volume 103.9 fl (80-100); Mean Platelet Volume 9.1 fl (7.4-10.4); Monocytes Absolute Auto 0.9 K/mm3 (0.1-0.6); Monocytes Percent Auto 18.3 % (2.6-8.5); Neutrophils Absolute Auto 3.8 K/mm3 (1.3-6.7); Neutrophils Percent Auto 74.1 % (45.5-73.1); Platelet Count Result 134 k/mm3 (150-375); Red Blood Count 2.57 M/mm3 (4.2-5.4); White Blood Count 5.1 K/mm3 (4.5-10.0)
[2022-06-02 06:54] LABS: Alanine Aminotransferase 8 U/L (6-35); Albumin Level 3.3 g/dL (3.5-5.1); Alkaline Phosphatase 98 U/L (38-126); Anion Gap 6 mmol/L (8-16); Aspartate Amino Transferase 24 U/L (14-36); Bilirubin,Total 0.5 mg/dL (0.2-1.3); Blood Urea Nitrogen 23 mg/dL (7-17); Calcium 7.7 mg/dL (8.4-10.2); Carbon Dioxide 21 mmol/L (22-30); Chloride 109 mmol/L (98-107); Estimated CRCL calculation 25 ml/min; Estimated Glomerular Filt Rate 48; Glucose 108 mg/dL (65-110); Lactic Acid Reflex 0.7 mmol/L (0.7-2.0); Lipase 61 U/L (23-300); Magnesium 1.1 mg/dL (1.6-2.3); Phosphorus 3.8 mg/dL (2.5-4.5); Potassium 3.5 mmol/L (3.4-5.0); Sodium 136 mmol/L (137-145)
[2022-06-02 08:06] LABS: Thyroid Stimulating Hormone Reflex 0.972 uIU/mL (0.465-4.68)
--- NOTE | 2022-06-02 13:06 | PC.NURSE ---
Dr Parry in to speak with pt and family
--- NOTE | 2022-06-02 15:28 | PM.CNCAR ---
Assessment and Plan Assessment and plan (1) Chest pain: Code(s): R07.9 - Chest pain, unspecified Status: Acute (2) Elevated troponin: Code(s): R77.8 - Other specified abnormalities of plasma proteins Status: Acute Plan this is an 81-year-old lady who came to the emergency room yesterday she still unfortunately boarding in the emergency room after the decision to admit her yesterday was made. The symptoms of her chest pain are very atypical of and not in my opinion not suggestive of myocardial ischemia. She describes nonexertional symptoms that are pleuritic in quality. Her troponin levels are out of normal range but flat pattern has been seen which is also not suggestive of ACS or non STEMI. A Lexiscan nuclear stress test has been ordered which of course will happen tomorrow on Friday morning to rule out ischemic heart disease. This is reasonable but again her symptoms I do not believe are likely to be ischemic in nature. An echocardiogram has been requested which may not be necessary as the patient says she just had 1 done a couple of weeks ago at [place] apparently because of her cancer treatment. She has a history of atrial fibrillation about 6 weeks ago as she is explaining it to me it sounds like it was a self-limited event that was noticed while she was at [place] getting chemotherapy but resolved in a self-limited fashion. Since then she has been anticoagulated with apixaban. Will follow-up results of her nuclear stress test tomorrow and the patient would like to follow up with us in our office here at [facility] regarding her cardiovascular needs. Andrea Hall MD [facility] History of Present Illness History of Present Illness Consult date/time: 06/02/22 15:28 Consult reason: chest pain Reason For Visit: chest pain Narrative: This is a very pleasant 81-year-old lady I am seeing in the emergency room because of chest pain. She is unknown to me prior to this encounter. She is not known to have any history of coronary artery disease at this time. She came to the emergency room yesterday because she noted the onset of symptoms at home while she was sitting on a couch of some center chest pain that was something like she has not had in the past. She noticed a sharp like discomfort that would tend to occur her more notably if he was taking a deep breath. When she would take a Deep inspiration the symptom was worse and then at that time would sometimes radiate up into the region of her left shoulder. After this was going on for a while she came to the emergency room for evaluation. She was seen in the emergency room her electrocardiogram shows sinus rhythm with some minor nonspecific ST segment changes. Troponin levels were done x3 sets and are slightly elevated but are flat at 0.13-0.15. There is no rising falling pattern compatible with an acute coronary event in my opinion. She is quite comfortable now she was been admitted to the IMU for further evaluation but there are no beds of stairs so she still sitting in the emergency room for more than 24 hours at this point. The patient is visiting with her when I entered the room to see her she is seems to be comfortable and in relatively good spirits. She is known to have a history of a cardiomyopathy approximately 22 years ago. She states she was found to have left ventricular systolic dysfunction by her family physician at where an echo was done demonstrating a low ejection fraction in the range of about 25%. She was treated medically by her primary care physician and this recovered and her ejection fraction normalized. Remarkably she was not seen by a lead cook at that time that she can recall. She does not remember having any dramatic symptoms of a weakened heart. She then had no additional cardiac problems until recently she was at [facility] where she sees an oncologist and was found to be in atrial fibrillation about a month ago. This was in th
--- NOTE | 2022-06-02 16:04 | PM.IMPN ---
Progress Note: A&P Assessment and Plan (1) Chest pain: Code(s): R07.9 - Chest pain, unspecified Status: Acute Assessment and Plan: -patient troponins were level 0.164, 0.135 and 0.139. -cardiology has been consulted -chest CTA no CT evidence of acute pulmonary embolism cardiomegaly with small Mala cardial effusion versus pericardial thickening as seen in pericarditis. -an echo has been ordered. 06/02/2022 interval history, patient 81-year-old female with history of uterine cancer and currently patient is going through chemotherapy during 1 of her chemotherapy patient had a brief episode of atrial fibrillation which would resolved, patient states since she started the chemotherapy see seems to have a patient pain and cardiac patient patient presented emergency depart with complaint chest pain patient tropes are elevated, to further evaluate patient will have a cardiac echo however patient may need cardiac as patient recently had 1, will have stress test tomorrow, patient was seen by Cardiolog, further recommendation to follow. (2) Hyperlipidemia: Code(s): E78.5 - Hyperlipidemia, unspecified Status: Acute Assessment and Plan: Continue with atorvastatin (3) Hypertension: Code(s): I10 - Essential (primary) hypertension Status: Acute Assessment and Plan: -continue with metoprolol (4) Paroxysmal atrial fibrillation: Code(s): I48.0 - Paroxysmal atrial fibrillation Status: Acute Assessment and Plan: -continue with apixaban Continue with metoprolol (5) Uterine cancer: Code(s): C55 - Malignant neoplasm of uterus, part unspecified Status: Acute Assessment and Plan: -the patient recently finished Sineff chemotherapy and radiation. (6) Parkinson disease: Code(s): G20 - Parkinson's disease Status: Acute Assessment and Plan: -continue with carbidopa levodopa Subjective Date/time seen: 06/02/22 16:04 Chest pain HPI-Narrative: This 81-year-old female patient who has a history of uterine cancer.? The patient has recently completed her chemotherapy and radiation.? She has had a history of CVA and paroxysmal AFib on Eliquis.? She also has a history of hyperlipidemia and hypertension.? The patient stated that 3 hours prior to coming in the emergency room she has some tightness in her chest.? The patient stated that she thought it was her bra that was too tired in on buckled her bra strap with the pain still continued.? She complained of midsternal chest that was worse with deep breathing.? Depression is had no prior history of coronary artery disease.? H&H is 9.9 and 32.1.? Which is her baseline.? When I saw her in the emergency room her chest pain had resolved.? Her troponin baseline is 0.164 and 0.135 and last troponin 0.139.? EKG was read as sinus tachycardia.? Possible of atrial enlargement.? The patient was given a full-strength aspirin and nitroglycerin.? CTA shows no CT evidence of acute pulmonary embolism cardiomegaly with small pericardial effusion versus pericardial thickening is seen with pericarditis.? Cardiology has been consulted.? The patient is being admitted to observation status on the date of service of 06/01/2022. 06/02/2022 interval history, patient 81-year-old female with history of uterine cancer and currently patient is going through chemotherapy during 1 of her chemotherapy patient had a brief episode of atrial fibrillation which would resolved, patient states since she started the chemotherapy see seems to have a patient pain and cardiac patient patient presented emergency depart with complaint chest pain patient tropes are elevated, to further evaluate patient will have a cardiac echo however patient may need cardiac as patient recently had 1, will have stress test tomorrow, patient was seen by Cardiolog, further recommendation to follow. Review of Systems Constitutional: Constitutional: Reports fatigue Eyes
--- NOTE | 2022-06-02 16:24 | PC.NURSE ---
Patient Atorvastatin not administered because patient takes it at night at home.
--- NOTE | 2022-06-02 17:25 | ADMGEN ---
This patient, Marilyn Stephenson, was admitted to IMU Room 204 [id number] from ER. Patient/family oriented to hospital policies and general routines including ID bracelet, bed and alarms, visiting hours, pain management, procedures, bathroom and other care routines, personal items, smoking policy, room service/diet, and visiting hours. Information on how to activate the Rapid Response Team has been discussed. Patient/Family are encouraged to report perceived risks to care and to ask questions if they do not understand what they are told or what they should do. Patient alert and oriented, verbally responsive. Comfortably breathing on RA. Denies Pain, SOB, CP. VS stable at this time. Will continue to monitor.
[2022-06-02 17:52] LABS: Glucose Point of Care 104 mg/dl (65-105)
[2022-06-02] MEDS: cefTRIAXone 2 GM in SODIUM CHLORIDE 0.9% IV 100 ML 200 ML IVPB (20:00)
[2022-06-02] MEDS: MAGNESIUM SULF 4 GM/WATER100ML 4 GM/100 ML BAG IVPB (20:42)
[2022-06-02 21:12] LABS: Appearance Urine Slightly Cloudy (Clear); Bilirubin Urine Negative (Negative); Blood Urine 1+ (Negative); Color Urine Yellow (Yellow); Glucose Urine UA Negative (Negative); Ketones Urine Negative (Negative); Leukocyte Esterase Ur 2+ LEU/UL (NEGATIVE); Nitrate Urine Negative (Negative); Protein Urine 2+ mg/dL (Negative); Specific Grav Ur 1.015 (1.001-1.035); Urobilinogen Urine 0.2 mg/dL (<2.0)
[2022-06-02] MEDS: APIXABAN 2.5 MG TABLET PO (21:28)
[2022-06-02] MEDS: ATORVASTATIN 40 MG TABLET 80 MG PO (21:28)
[2022-06-02] MEDS: CARBIDOPA/LEVODOPA 25/100 MG TABLET 1 TABLET PO (21:28)
[2022-06-02 21:35] LABS: WBC Urine >75 /hpf (0-3)
[2022-06-02 21:44] LABS: Add Urine Microscopic? YES
[2022-06-03] VITALS (10 sets, daily range): BP systolic 94–124; BP diastolic 55–84; PULSE 73–89; RESP 16; TEMP 36.3–36.6; O2SAT 99–100
--- NOTE | 2022-06-03 | ECHO_ITS ---
Patient Info Name: Marilyn Knight Organ Age: 81 years : 1940 Gender: Female Ht: 60 in Wt: 103 lbs BSA: 1.41 m2 HR: 76 bpm BP: 94 / 55 mmHg Heart Rhythm: Sinus Rhythm Exam Date: 06/03/2022 10:34 AM Exam Location: [facility] Patient Status: Inpatient Admit Date: 06/01/2022 Staff Ordering Physician: Cailin Pena NP Vault Clerk: Taras Aguilera RDCS, RT Attending Provider: Enzo Wilkinson MD Referring Physician: Becky WEEKS; Exam Type: CA echo doppler color flow Study Info Indications - Posiible pericarditsi I31.8 - Other specified diseases of pericardium Complete two-dimensional, color flow and Doppler transthoracic echocardiogram is performed. Strain analysis performed. Summary 1. Complete two-dimensional, color flow and Doppler transthoracic echocardiogram is performed. 2. Normal left ventricular size dimension and systolic function with grade 1 diastolic noncompliance. 3. Enlarged left atrium. 4. Small amount of MR. 5. Mildly sclerotic aortic valve with good leaflet excursion and no stenosis. Left Ventricle Left ventricular chamber dimension is normal. Left ventricular systolic function is normal, estimated at 55-60%. The left ventricular diastolic function is grade I diastolic dysfunction. Right Ventricle Right ventricular chamber dimension is normal. Left Atria Left atrial chamber dimension is moderately enlarged. Right Atria Right atrial chamber dimension is normal. Aortic Valve The aortic valve is trileaflet. There is mild aortic valve sclerosis. There is no aortic valve stenosis. Pulmonic Valve The pulmonic valve is not well visualized. Mitral Valve The mitral valve has normal leaflets. There is mild mitral valve regurgitation. Tricuspid Valve The tricuspid valve leaflets are normal. Pericardium/Pleural The pericardium appears normal. Aorta The aortic root size at the sinus of Valsalva is normal. Left Ventricular Outflow Tract Name Value Normal LVOT 2D LVOT Diameter 2.0 cm LVOT Doppler LVOT Peak Gradient 1 mmHg LVOT Mean Gradient 1 mmHg LVOT VTI 14 cm LVOT VTI/AV VTI Ratio 0.4 LVOT Stroke Volume 45 ml LVOT CO 3.4 l/min LVOT CI 2.4 l/min/m2 Mitral Valve Name Value Normal MV Doppler MV Peak Gradient 1 mmHg MV Mean Gradient 0 mmHg MV Decel [place] 718 cm/s2 MV PHT 45 ms MV Area (PHT) 4.9 cm2 4.0-5.0 MV Area (Cont Eq VTI) 6.6 cm2 MV Regurgitation Doppler
--- NOTE | 2022-06-03 01:46 | EST_ITS ---
Patient Info Name: Marilyn Knight Organ Age: 81 years : 1940 Gender: Female Ht: 60 in Wt: 103 lbs BSA: 1.41 m2 HR: 80 bpm BP: 141 / 74 mmHg Heart Rhythm: Sinus Rhythm Exam Date: 06/03/2022 12:04 PM Exam Location: [facility] Stress Patient Status: Inpatient Admit Date: 06/01/2022 Staff Ordering Physician: Cailin Pena NP Attending Provider: Enzo Wilkinson MD Exercise Technologist: Maral Randall, CT Nurse: YAYA ENGLAND Exam Type: CA stress raegan w NM Study Info Indications R07.9 - Chest pain, unspecified A regadenoson stress test was performed. Summary 1. Normal sinus rhythm - normal ECG. 2. No ST segment changes induced by Lexiscan injection. 3. Clinically and electrocardiographically unremarkable Lexiscan stress test. 4. Myocardial perfusion imaging exam to be dictated by Radiology. Protocol: Lexiscan Stress ECG Details Stage: REST Duration (min): 0 min : 24 sec HR (bpm): 77 SBP (mmHg): --- DBP (mmHg): --- Stage: REST Duration (min): 4 min : 9 sec HR (bpm): 77 SBP (mmHg): 147 DBP (mmHg): 74 Stage: STAGE 1 Duration (min): 1 min : 0 sec HR (bpm): 89 SBP (mmHg): 157 DBP (mmHg): 99 Stage: RECOVERY Duration (min): 1 min : 0 sec HR (bpm): 93 SBP (mmHg): 157 DBP (mmHg): 99 Stage: RECOVERY Duration (min): 2 min : 0 sec HR (bpm): 93 SBP (mmHg): 157 DBP (mmHg): 99 Stage: RECOVERY Duration (min): 3 min : 0 sec HR (bpm): 95 SBP (mmHg): 157 DBP (mmHg): 99 Stage: RECOVERY Duration (min): 4 min : 0 sec HR (bpm): 97 SBP (mmHg): 157 DBP (mmHg): 99 Stage: RECOVERY Duration (min): 4 min : 36 sec HR (bpm): 97 SBP (mmHg): 118 DBP (mmHg): 75 Rest HR: 77 bpm Peak HR: 98 bpm Rest Sys BP: 147 mmHg Peak Sys BP: 118 mmHg Max Pred HR: 138 bpm % Max Pred HR: 71 % Target HR: 117 bpm Max RPP: 11,564 bpm*mmHg Termination Reason: Completed protocol Cardiac Symptoms: Shortness of breath Total Time: 1 min : 0 sec Rest Allred BP: 74 mmHg Peak Allred BP: 75 mmHg Total Dose: 0.4 mg Resting ECG Normal sinus rhythm - normal ECG. Stress ECG No ST segment changes induced by Lexiscan injection. Arrhythmias None. Report Signatures
[2022-06-03 04:30] LABS: Basophils Percent Auto 0.5 % (0.2-1.2); Eosinophils Absolute Auto 0.3 K/mm3 (0-0.3); Eosinophils Percent Auto 6.1 % (0-4.4); Hematocrit 28.3 % (37.0-47.0); Hemoglobin 8.7 g/dL (12.0-15.0); Immature Granulocyte Absolute 0.04 K/mm3 (0.00-0.031); Immature Granulocyte Percent A 0.9 % (0-0.5); Lymphocytes Absolute Auto 0.31 K/mm3 (0.9-3.2); Lymphocytes Percent Auto 7.3 % (18.3-44.2); Mean Corpuscular HGB Conc 30.7 g/dl (32-36); Mean Corpuscular Hemoglobin 31.8 pg (26-34); Mean Corpuscular Volume 103.3 fl (80-100); Monocytes Absolute Auto 0.9 K/mm3 (0.1-0.6); Monocytes Percent Auto 20.1 % (2.6-8.5); Neutrophils Absolute Auto 2.8 K/mm3 (1.3-6.7); Neutrophils Percent Auto 65.1 % (45.5-73.1); Platelet Count Result 140 k/mm3 (150-375); Red Blood Count 2.74 M/mm3 (4.2-5.4); Red Cell Distribution Width 20.8 % (11.5-14.5); White Blood Count 4.3 K/mm3 (4.5-10.0)
[2022-06-03 04:49] LABS: Alanine Aminotransferase 7 U/L (6-35); Albumin Level 3.5 g/dL (3.5-5.1); Alkaline Phosphatase 128 U/L (38-126); Anion Gap 9 mmol/L (8-16); Aspartate Amino Transferase 25 U/L (14-36); Bilirubin,Total 0.3 mg/dL (0.2-1.3); Blood Urea Nitrogen 27 mg/dL (7-17); Calcium 8.2 mg/dL (8.4-10.2); Carbon Dioxide 17 mmol/L (22-30); Chloride 110 mmol/L (98-107); Estimated CRCL calculation 23 ml/min; Estimated Glomerular Filt Rate 43; Glucose 103 mg/dL (65-110); Potassium 3.6 mmol/L (3.4-5.0); Sodium 136 mmol/L (137-145)
[2022-06-03] MEDS: APIXABAN 2.5 MG TABLET PO (09:36)
[2022-06-03] MEDS: CARBIDOPA/LEVODOPA 25/100 MG TABLET 1 TABLET PO (09:37)
--- NOTE | 2022-06-03 13:14 | PM.PNCARD ---
Progress Note: A&P Assessment and Plan (1) Chest pain: Code(s): R07.9 - Chest pain, unspecified Status: Acute Assessment and Plan: Atypical, nonischemic sounding chest pain. She is undergoing a lexiscan stress test today to evaluate this. Further recommendations to follow (2) Elevated troponin: Code(s): R77.8 - Other specified abnormalities of plasma proteins Status: Acute Assessment and Plan: Elevated but flat, not consistent with ACS. Subjective Date/time seen: 06/03/22 13:14 Cardiology follow up for chest pain I am seeing her in the cardiac stress lab prior to her lexiscan. She is reporting no chest pain and states she has not had a recurrence of chest pain since being admitted to the hospital. No complaints at this time. Review of Systems Constitutional: Constitutional: Reports fatigue Eyes: Eyes: Reports no additional eye complaints ENT: Reports system reviewed and no additional complaints, except as documented Cardiovascular: Cardiovascular: Reports as per HPI and Reports chest pain Respiratory: Respiratory: Reports no additional respiratory complaints Gastrointestinal: Gastrointestinal: Reports no additional gastrointestinal complaints Musculoskeletal: Musculoskeletal: Reports no additional musculoskeletal complaints Integumentary/Breasts: Skin/Breast: Reports system reviewed and no additional complaints, except as docu Neurologic: Reports system reviewed and no additional complaints, except as documented Endocrine: Endocrine: Reports no additional endocrine complaints and Reports fatigue Hematologic/Lymphatic: Hematologic/Lymphatic: Reports no additional hematologic/lymphatic complaints Allergic/Immunologic: Allergic/Immunologic: Reports no additional allergic/immunologic complaints Exam Const: General: comfortable and no acute distress Other: Pleasant thin elderly lady no distress of any kind HENMT: Mouth: Yes moist mucous membranes Eyes: Sclera: sclerae normal Neck: Neck: supple and no JVD Resp: Effort & Inspection: normal respiratory effort Auscultation: clear to auscultation bilaterally Other: no rales no rhonchi no wheezing Cardio: Rate: regular rate Rhythm: regular rhythm Other: soft grade 1-2 low-pitched systolic murmur audible at the base no diastolic murmur no gallop GI: Auscultation: normal bowel sounds Skin: General skin exam: normal color Neuro: Other: alert and oriented x3 Extrem: Other: no edema, good distal pulses Objective Data Vital Signs Vital Signs: Vital Signs - 24 hr 06/02/22 13:15 06/02/22 13:30 06/02/22 13:55 Temperature Pulse Rate 89 91 88 Respiratory Rate 17 21 H 15 Blood Pressure Pulse Oximetry 97 Oxygen Delivery 06/02/22 14:00 06/02/22 16:28 06/02/22 14:30 Temperature Pulse Rate 86 89 Respiratory Rate 17 19 Blood Pressure 138/82 Pulse Oximetry Oxygen Delivery 06/02/22 14:48 06/02/22 15:00 06/02/22 15:16 Temperature Pulse Rate 87 90 88 Respiratory Rate 20 18 23 H Blood Pressure Pulse Oximetry 100 100 Oxygen Delivery 06/02/22 15:30 06/02/22 15:48 06/02/22 16:09 Temperature Pulse Rate 86 94 83 Respiratory Rate 18 16 19 Blood Pressure Pulse Oximetry Oxygen Delivery 06/02/22 20:00 06/02/22 20:00 06/02/22 20:00 Temperature 36.3 C L Pulse Rate 85 78 Respiratory Rate 16 Blood Pressure 94/58 L Pulse Oximetry 98 Oxygen Delivery Room Air 06/02/22 22:00 06/02/22 23:57 06/03/22 00:00 Temperature 36.2 C L Pulse Rate 70 76 Respiratory Rate 12 Blood Pressure 150/49 H Pulse Oximetry 98 Oxygen Delivery Room Air 06/03/22 00:00 06/03/22 02:00 06/03/22 04:00 Temperature Pulse Rate 75 81 76 Respiratory Rate Blood Pressure Pulse Oximetry Oxygen Delivery 06/03/22 04:00 06/03/22 04:00 06/03/22 04:00 Temperature 36.4 C Pulse Rate 76 89 Respiratory Rate 16 Blood
--- NOTE | 2022-06-03 13:20 | PC.NURSE ---
Patient advised to follow a heart healthy diet but refuses stating that she will not eat unless is a regular diet. made aware.
[2022-06-03] MEDS: cefTRIAXone 2 GM in SODIUM CHLORIDE 0.9% IV 100 ML 200 ML IVPB (17:26)
--- NOTE | 2022-06-03 17:58 | PM.DS ---
DS: Admitting Diagnosis Discharge Date 06/03/2022 Admitting Diagnosis chest pain DS: Discharge Diagnosis Discharge Diagnosis (1) Chest pain: Code(s): R07.9 - Chest pain, unspecified Status: Acute Assessment and Plan: -patient troponins were level 0.164, 0.135 and 0.139. -cardiology has been consulted -chest CTA no CT evidence of acute pulmonary embolism cardiomegaly with small Mala cardial effusion versus pericardial thickening as seen in pericarditis. -an echo has been ordered. 06/02/2022 interval history, patient 81-year-old female with history of uterine cancer and currently patient is going through chemotherapy during 1 of her chemotherapy patient had a brief episode of atrial fibrillation which would resolved, patient states since she started the chemotherapy see seems to have a patient pain and cardiac patient patient presented emergency depart with complaint chest pain patient tropes are elevated, to further evaluate patient will have a cardiac echo however patient may need cardiac as patient recently had 1, will have stress test tomorrow, patient was seen by Cardiolog, further recommendation to follow. (2) Hyperlipidemia: Code(s): E78.5 - Hyperlipidemia, unspecified Status: Acute Assessment and Plan: Continue with atorvastatin (3) Hypertension: Code(s): I10 - Essential (primary) hypertension Status: Acute Assessment and Plan: -continue with metoprolol (4) Paroxysmal atrial fibrillation: Code(s): I48.0 - Paroxysmal atrial fibrillation Status: Acute Assessment and Plan: -continue with apixaban Continue with metoprolol (5) Uterine cancer: Code(s): C55 - Malignant neoplasm of uterus, part unspecified Status: Acute Assessment and Plan: -the patient recently finished Sineff chemotherapy and radiation. (6) Parkinson disease: Code(s): G20 - Parkinson's disease Status: Acute Assessment and Plan: -continue with carbidopa levodopa DS: Summary Hospital Course Reason for hospitalization: Chief Complaint: Chest pain Narrative: This 81-year-old female patient who has a history of uterine cancer.? The patient has recently completed her chemotherapy and radiation.? She has had a history of CVA and paroxysmal AFib on Eliquis.? She also has a history of hyperlipidemia and hypertension.? The patient stated that 3 hours prior to coming in the emergency room she has some tightness in her chest.? The patient stated that she thought it was her bra that was too tired in on buckled her bra strap with the pain still continued.? She complained of midsternal chest that was worse with deep breathing.? Depression is had no prior history of coronary artery disease.? H&H is 9.9 and 32.1.? Which is her baseline.? When I saw her in the emergency room her chest pain had resolved.? Her troponin baseline is 0.164 and 0.135 and last troponin 0.139.? EKG was read as sinus tachycardia.? Possible of atrial enlargement.? The patient was given a full-strength aspirin and nitroglycerin.? CTA shows no CT evidence of acute pulmonary embolism cardiomegaly with small pericardial effusion versus pericardial thickening is seen with pericarditis.? Cardiology has been consulted.? The patient is being admitted to observation status on the date of service of 06/01/2022. Hospital Course: ?patient 81-year-old female with history of uterine cancer and currently patient is going through chemotherapy during 1 of her chemotherapy patient had a brief episode of atrial fibrillation which would resolved,? patient states since she started the chemotherapy see seems to have a patient pain and cardiac patient patient presented emergency depart with complaint chest pain patient tropes are elevated,? to further evaluate patient will have a cardiac echo however patient may need cardiac as patient recently had 1,? will have stress test tomorrow, patient was seen by Salvage Mechanic,? f
--- NOTE | 2022-06-03 18:45 | PC.NURSE ---
Patient discharge home with . ALert and verbally responsive. Denies CP, pain, SOB. Discharge instruction given to pt and whom is at bedside. Belongings sent with patient.
== END 2022-06-03 19:00 | disposition home or self-care (01) ==
LOC: ANHED 16:30 → ANHIMU 06-02 14:00
PROVIDERS: Nurse Practitioner; Admitting Provider Internal Medicine; Emergency Provider Emergency Medicine; PCP Family Medicine; Visit Provider Family Medicine
DX: R07.9 Chest pain, unspecified (principal); R77.8 Other specified abnormalities of plasma proteins; I48.0 Paroxysmal atrial fibrillation; E78.5 Hyperlipidemia, unspecified; R53.83 Other fatigue; I12.9 Hypertensive chronic kidney disease with stage 1 through stage 4 chronic kidney disease, or unspecified chronic kidney disease; N18.30 Chronic kidney disease, stage 3 unspecified; G61.0 Guillain-Barre syndrome; G20 Parkinson's disease; C55 Malignant neoplasm of uterus, part unspecified; I31.39 Other pericardial effusion (noninflammatory); I08.0 Rheumatic disorders of both mitral and aortic valves; I47.1 Supraventricular tachycardia; R94.31 Abnormal electrocardiogram [ECG] [EKG]; Z92.3 Personal history of irradiation; Z20.822 Contact with and (suspected) exposure to COVID-19; Z87.891 Personal history of nicotine dependence; Z92.21 Personal history of antineoplastic chemotherapy; Z86.711 Personal history of pulmonary embolism; Z86.73 Personal history of transient ischemic attack (TIA), and cerebral infarction without residual deficits; Z79.01 Long term (current) use of anticoagulants; Z79.1 Long term (current) use of non-steroidal anti-inflammatories (NSAID); Z79.899 Other long term (current) drug therapy
CPT/HCPCS: 36415; 71046; 71275; 78452; 80053; 81001; 82948; 83605; 83690; 83735; 84100; 84443; 84484; 85025; 85610; 85730; 87086; 87147; 87181; 87186; 87636; 93005; 93017; 93306; 96365; 96367; 96376; 99285; A9270; A9502; G0378; J0696; J2785; J3475; Q9967

== ENCOUNTER 2022-06-20 10:56 | Outpatient (NON) | payer OTHER, SELFPAY ==
[2022-06-21 10:38] LABS: Add Urine Microscopic? YES; Appearance Urine Clear (Clear); Bilirubin Urine Negative (Negative); Blood Urine 2+ (Negative); Color Urine Yellow (Yellow); Glucose Urine UA Negative (Negative); Ketones Urine Negative (Negative); Leukocyte Esterase Ur Negative LEU/UL (Negative); Nitrate Urine Negative (Negative); Protein Urine 1+ mg/dL (Negative); Specific Grav Ur 1.015 (1.001-1.035); Urobilinogen Urine 0.2 mg/dL (<2.0); pH Urine 6.5 (5.0-9.0)
[2022-06-21 11:05] LABS: RBC Urine 21-50 /hpf (0-2); Squamous Epithelial Cell Urine Rare /hpf (Few); WBC Urine 21-30 /hpf
== END 2022-06-20 10:57 | disposition home or self-care (01) ==
LOC: ANHGOSHLAB 11:00
PROVIDERS: PCP Family Medicine; Visit Provider Family Medicine
DX: R30.0 Dysuria (principal)
CPT/HCPCS: 81001; 87086

== ENCOUNTER 2022-07-08 08:04 | Outpatient (CLI) | payer OTHER, SELFPAY ==
[2022-07-08 20:01] LABS: Albumin Level 3.9 g/dL (3.5-5.1); Anion Gap 9 mmol/L (8-16); Blood Urea Nitrogen 40 mg/dL (7-17); Calcium 8.6 mg/dL (8.4-10.2); Carbon Dioxide 16 mmol/L (22-30); Chloride 111 mmol/L (98-107); Estimated Glomerular Filt Rate 31; Glucose 98 mg/dL (65-110); Phosphorus 4.9 mg/dL (2.5-4.5); Potassium 4.8 mmol/L (3.4-5.0); Sodium 136 mmol/L (137-145)
[2022-07-08 20:40] LABS: Parathyroid Intact 136.3 pg/mL (7.5-53.5)
[2022-07-08 21:31] LABS: Creatinine Urine 79.5 mg/dL; Total Protein Urine Random 111 mg/dL
[2022-07-08 22:35] LABS: Vitamin D 25 Hydroxy 43.4 ng/mL
== END 2022-07-08 08:05 | disposition home or self-care (01) ==
LOC: ANHGOSHLAB 08:06
PROVIDERS: PCP Family Medicine; Visit Provider Internal Medicine Nephrology
DX: R30.0 Dysuria (principal); E55.9 Vitamin D deficiency, unspecified; E87.20 Acidosis, unspecified; N18.32 Chronic kidney disease, stage 3b; N25.81 Secondary hyperparathyroidism of renal origin
CPT/HCPCS: 36415; 80069; 82306; 82570; 83970; 84156; 87086

== ENCOUNTER 2022-07-15 13:22 | Outpatient (NON) | payer OTHER, SELFPAY | END 2022-07-15 13:23 | disposition home or self-care (01) | PROVIDERS: PCP Family Medicine | DX: R33.9 Retention of urine, unspecified (principal) | CPT/HCPCS: 87086 ==

== ENCOUNTER 2022-09-19 12:33 | Outpatient (NON) | payer OTHER, SELFPAY | END 2022-09-19 12:34 | disposition home or self-care (01) | PROVIDERS: PCP Family Medicine; Visit Provider Family Medicine | DX: R30.0 Dysuria (principal) | CPT/HCPCS: 87086; 87147; 87181; 87186 ==

== ENCOUNTER 2022-11-12 14:52 | Outpatient (NON) | payer OTHER, SELFPAY ==
[2022-11-12 21:44] LABS: Bacteria Urine None Seen /hpf; Non Pathogenic Casts 0-2; RBC Urine >100 /hpf (0-2); Squamous Epithelial Cell Urine None seen /hpf (Few); WBC Urine 0-5 /hpf
[2022-11-12 21:55] LABS: Appearance Urine Clear (Clear); Bilirubin Urine Negative (Negative); Blood Urine 3+ (Negative); Color Urine Orange (Yellow); Glucose Urine UA Negative (Negative); Ketones Urine Negative (Negative); Leukocyte Esterase Ur Negative LEU/UL (Negative); Nitrate Urine Negative (Negative); Protein Urine 1+ mg/dL (Negative); Specific Grav Ur 1.012 (1.001-1.035); Urobilinogen Urine 0.2 mg/dL (<2.0)
[2022-11-12 22:01] LABS: Add Urine Microscopic? YES
== END 2022-11-12 14:53 | disposition home or self-care (01) ==
LOC: ANHGOSHLAB 14:53
PROVIDERS: PCP Family Medicine; Visit Provider Family Medicine
DX: R30.0 Dysuria (principal)
CPT/HCPCS: 81001

== ENCOUNTER 2022-11-19 13:52 | Outpatient (CLI) | payer OTHER, SELFPAY ==
[2022-11-20 15:06] LABS: Hemoglobin 10.8 g/dL (12.0-15.0); Mean Corpuscular Hemoglobin 32.7 pg (26-34); Mean Corpuscular Volume 109.1 fl (80-100); Mean Platelet Volume 11.7 fl (7.4-10.4); Platelet Count Result 190 k/mm3 (150-375); Red Cell Distribution Width 14.8 % (11.5-14.5); White Blood Count 5.3 K/mm3 (4.5-10.0)
[2022-11-20 15:21] LABS: Appearance Urine Cloudy (Clear); Bacteria Urine None Seen /hpf; Bilirubin Urine Negative (Negative); Blood Urine 3+ (Negative); Color Urine Yellow (Yellow); Glucose Urine UA Negative (Negative); Ketones Urine Negative (Negative); Leukocyte Esterase Ur Trace LEU/UL (Negative); Nitrate Urine Negative (Negative); Non Pathogenic Casts 0-2; Protein Urine 1+ mg/dL (Negative); RBC Urine >100 /hpf (0-2); Specific Grav Ur 1.017 (1.001-1.035); Squamous Epithelial Cell Urine None seen /hpf (Few); Urobilinogen Urine 0.2 mg/dL (<2.0)
[2022-11-20 15:31] LABS: Add Urine Microscopic? YES
[2022-11-20 15:58] LABS: Band Neutrophils Percent 1 % (0-6); Basophils Absolute Manual 0.05 K/mm3 (0.0-0.1); Basophils Percent Manual 1 % (0-1); Eosinophils Absolute Manual 0.15 K/mm3 (0.02-0.5); Eosinophils Percent Manual 3 % (0-4); Lymphocytes Absolute Manual 0.68 K/mm3 (1.1-4.5); Monocytes Absolute Manual 0.79 K/mm3 (0.1-0.90); Monocytes Percent Manual 15 % (3-9); Neutrophils Percent Manual 67 % (46-73); Total Cells Counted 100
[2022-11-20 15:59] LABS: Anisocytosis 1+ (NORMAL); Platelet Estimate Adequate (Adequate); Schistocytes None Seen (NORMAL)
[2022-11-20 16:00] LABS: Hypochromasia 1+ (NORMAL)
== END 2022-11-19 13:53 | disposition home or self-care (01) ==
LOC: ANHGOSHLAB 13:53
PROVIDERS: PCP Family Medicine; Visit Provider Family Medicine
DX: R31.9 Hematuria, unspecified (principal); R58 Hemorrhage, not elsewhere classified
CPT/HCPCS: 36415; 81001; 85025; 87086; 87088

== ENCOUNTER 2023-01-27 20:58 | Inpatient (IN) | payer OTHER, SELFPAY ==
[2023-01-27] VITALS (8 sets, daily range): BP systolic 141; BP diastolic 96; PULSE 78–109; RESP 14–22; TEMP 36.9; O2SAT 97–100
--- NOTE | ~2023-01-27 | XR_ITS ---
EXAMINATION: XR chest 2V Exam Date/Time: 01/27/2023 21:20 CDT HISTORY: chest pain, rapid heart rate, dizziness since RF ablation on . Comparison: 06/01/2022. RESULT: Lines, tubes, and devices: None. Lungs and pleura: Senescent change, otherwise clear. Cardiomediastinal silhouette: Stable. Other: No acute osseous or upper abdominal finding. Atherosclerotic calcifications in the bilateral subclavian and axillary vessels. IMPRESSION: No acute cardiopulmonary process. Reviewed, dictated and finalized at location K.
--- NOTE | ~2023-01-27 | XR_ITS ---
EXAM: XR small bowel follow through DATE: 01/29/2023 17:41 HISTORY: gib, egd negative . COMPARISON: CTPA chest, abdomen and pelvis. FINDINGS: Normal bowel gas pattern. Multiple surgical clips overlie the abdomen. Degenerative change s in the lumbar spine, pubic symphysis, and bilateral hips. Contrast fills a normal-appearing stomach and normal-appearing proximal small bowel in the initial images, reaching the large bowel at the 3 1 /2 hour elda. In the 4.5 hour image, a 7 mm small bowel diverticulum is noted over the right lower qu adrant likely off a loop of ileum. No spot views were obtained. IMPRESSION: Contrast reaches the large bowel at the 3 1/2 hour elda. 7 mm ileal diverticulum. Consider a nuclear medicine GI bleeding study if additional imaging workup is clinically warranted. Reviewed, dictated and finalized at [facility]. IMPRESSION: Contrast reaches the large bowel at the 3 1/2 hour elda. 7 mm ileal diverticulu m. Consider a nuclear medicine GI bleeding study if additional imaging workup is c linically warranted.
--- NOTE | ~2023-01-27 | CT_ITS ---
Clinical Indication: Chest pain, abdominal pain CT Scan of the Chest, Abdomen, and Pelvis with Contrast: Technique: Contiguous sections were acquired throughout the chest, abdomen, and pelvis after intraven ous administration of 100 cc of Omnipaque 350. Dose reduction technique was used on this scan by avery mcdonald automated exposure control and iterative reconstruction technique. The dose-length product (DL P) was 341.11 mGy-cm. Findings: There is no evidence of any significant mediastinal, hilar or axillary lymphadenopathy. Atherosclerot ic calcifications of the aorta are present. No aortic aneurysm or dissection. No pulmonary embolus. There is no evidence of pleural or pericardial effusion. The lungs are clear. No pulmonary nodules or infiltrates are noted. Minimal emphysema. The liver, spleen, pancreas, gallbladder, adrenals and kidneys are within normal limits. There are ex tensive atherosclerotic calcifications aorta, iliac vessels, and common femoral vessels. No lymphade nopathy. No bowel obstruction or bowel wall thickening. There is no evidence to suggest acute appendicitis. Urinary bladder is unremarkable. Questionable prominence of the endometrium. No other adnexal mass ev ident. No ascites. Impression: Mild emphysema. Extensive atherosclerotic change, as noted above. Questionable prominence of the endometrium. Consider follow-up pelvic ultrasound further assess, as i ndicated. Reviewed, dictated and finalized at location M. Impression: Mild emphysema. Extensive atherosclerotic change, as noted above. Questionable prominence of the endometrium. Consider follow-up pelvic ultrasoun d further assess, as indicated.
--- NOTE | 2023-01-27 21:09 | ECG_ITS ---
Measurements Intervals [place] Rate: 98 P: 36 MO: 164 QRS: 4 QRSD: 97 T: 240 QT: 307 QTc: 394 Interpretive Statements SINUS RHYTHM NONSPECIFIC ST AND T-WAVE ABNORMALITY ABNORMAL ECG COMPARED TO 06/01/2022: NO SIGNIFICANT CHANGE Electronically Signed On 01-28-2023 13:17:01 CDT by Andrea Hall M.D.
[2023-01-27 21:19] LABS: Eosinophils Percent Auto 0.3 % (0-4.4); Immature Granulocyte Absolute 0.16 K/mm3 (0.00-0.031); Immature Granulocyte Percent A 1.8 % (0-0.5); Lymphocytes Absolute Auto 1.33 K/mm3 (0.9-3.2); Lymphocytes Percent Auto 14.7 % (18.3-44.2); Mean Corpuscular HGB Conc 28.8 g/dl (32-36); Mean Corpuscular Hemoglobin 32.6 pg (26-34); Mean Platelet Volume 8.9 fl (7.4-10.4); Monocytes Absolute Auto 1.2 K/mm3 (0.1-0.6); Monocytes Percent Auto 13.5 % (2.6-8.5); Neutrophils Absolute Auto 6.3 K/mm3 (1.3-6.7); Neutrophils Percent Auto 69.7 % (45.5-73.1); Nucleated Red Blood Cells Perc 0.2 % (0.0-0.2); Platelet Count Result 211 k/mm3 (150-375); Red Blood Count 1.38 M/mm3 (4.2-5.4); Red Cell Distribution Width 16.1 % (11.5-14.5)
[2023-01-27 21:26] LABS: Hematocrit 15.6 % (37.0-47.0); Hemoglobin 4.5 g/dL (12.0-15.0)
[2023-01-27 21:29] LABS: Alanine Aminotransferase 14 U/L (6-35); Albumin Level 3.6 g/dL (3.5-5.1); Alkaline Phosphatase 88 U/L (38-126); Anion Gap 12 mmol/L (8-16); Aspartate Amino Transferase 21 U/L (14-36); Bilirubin,Total 0.1 mg/dL (0.2-1.3); Blood Urea Nitrogen 60 mg/dL (7-17); Calcium 8.6 mg/dL (8.4-10.2); Carbon Dioxide 16 mmol/L (22-30); Chloride 112 mmol/L (98-107); Estimated CRCL calculation 17 ml/min; Estimated Glomerular Filt Rate 31; Glucose 113 mg/dL (65-110); Lipase 631 U/L (23-300); Potassium 4.2 mmol/L (3.4-5.0); Sodium 140 mmol/L (137-145)
[2023-01-27 21:30] LABS: INR 1.2; Partial Thromboplastin Time 28.1 SECONDS (22.3-36.8); Prothrombin Time 15.7 Seconds (11.1-14.7)
[2023-01-27 21:38] LABS: Hypochromasia 1+ (NORMAL); Platelet Estimate Decreased (Adequate); Schistocytes None Seen (NORMAL)
[2023-01-27 21:39] LABS: Anisocytosis 3+ (NORMAL); Microcytosis 1+ (NORMAL)
[2023-01-27 21:41] LABS: Troponin I 0.019 ng/mL (0.000-0.034)
[2023-01-27 23:40] LABS: Iron 21 ug/dL (37-170)
[2023-01-27 23:50] LABS: Percent Iron Saturation 5 % (20-50)
[2023-01-28] VITALS (32 sets, daily range): BP systolic 89–154; BP diastolic 47–79; PULSE 70–104; RESP 16–21; TEMP 35.8–37.1; O2SAT 95–100; BMI 21.6
[2023-01-28] MEDS: SODIUM CHLORIDE 0.9% IV 250 ML 30 ML IV CONT (00:15)
[2023-01-28] MEDS: TUBING, BLOOD PLUM PUMP TUBING 1 EACH XX ×2 (00:15→04:13)
--- NOTE | 2023-01-28 01:27 | ED.CHESTPAIN ---
HPI - Chest Pain General Chief Complaint: Chest Pain Stated Complaint: chest pain Time Seen by Provider: 01/27/23 21:12 Source: patient, family and RN notes reviewed Mode of arrival: ambulatory Limitations: no limitations History of Present Illness HPI narrative: This is an 82 year old female with history of PAD, atrial fibrillation, PUD, cervical cancer who presents for evaluation of left chest pain. Patient reports 5 days ago she had ablation done on her lower back to treat back pain. She reports since that procedure she has had weakness, left chest pain. Her chest pain is located left lateral chest. She reports nausea but seems to improve with eating and drinking. She also reports dark stools since her procedure. She takes eliquis for history of afib, and she denies iron supplementations. Related Data Home Medications Medication Instructions Recorded Confirmed aspirin 81 mg tablet,delayed 81 mg PO DAILY 11/19/22 01/28/23 release (Vianey Low Dose Aspirin) carbidopa 25 mg-levodopa 100 mg 1 tablet PO TID 01/28/23 01/28/23 tablet Allergies Allergy/AdvReac Type Severity Reaction Status Date / Time latex Allergy Mild rash Verified 11/20/22 10:29 aspirin AdvReac Mild stomach Verified 11/20/22 10:29 pain Review of Systems Constitutional: Constitutional: Reports weakness Cardiovascular: Cardiovascular: Reports chest pain, Denies syncope, Denies rapid heart rate, Denies irregular heart rhythm, Denies leg edema and Reports dyspnea Respiratory: Respiratory: Denies chest congestion, Denies hemoptysis, Denies excessive phlegm production and Denies dyspnea Gastrointestinal: Gastrointestinal: Reports abdominal pain, Reports bloating, Denies hematochezia, Denies diarrhea and Denies vomiting Genitourinary: Genitourinary: Denies hematuria and Denies dysuria Musculoskeletal: Musculoskeletal: Denies joint swelling, Denies loss of height and Denies muscle weakness Neurologic: Denies syncope, Denies focal weakness and Denies weakness [facility] Past Medical History Medical History (Updated 01/28/23 @ 08:12 by Rain Cheek MD) Cardiomyopathy Around 1999 the patient had a cardiomyopathy with EF down to 24%, due to an autoimmune problem, recovered. 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 History Surgical History (Updated 01/28/23 @ 07:46 by Alejandra Foley DO) History of appendectomy History of benign breast biopsy History of hysteroscopy (01/11/22) hscope D&C History of partial thyroidectomy History of tonsillectomy Internal carotid artery stent present Right 08/2022 complicated by an AL and TIA Status post cataract extraction of both eyes with insertion of intraocular lens Family History Family History (Updated 01/28/23 @ 07:32 by Alejandra Foley DO) Father Heart disease Mother Breast cancer Social History Social History (Updated 01/28/23 @ 07:32 by Alejandra Foley DO) Social History: Her and her have been for 54 years. They have 1 son. 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 She is a former smoker and she does not use any alcohol marijuana or illicit drugs. Surrogate medical decision maker: Armando Stephenson, spouse. Code status: Full code. Smoking packs per day: 2.5 Smoking cigarettes per day: 50.0 Years smoked: 22 Smoking pack-years: 55.00 Smoking status: Former smoker
[2023-01-28 01:33] LABS: Troponin I 0.491 ng/mL (0.000-0.034)
--- NOTE | 2023-01-28 02:08 | ADMGEN ---
This patient, Marilyn Stephenson, was admitted to IMU Room 212-01. Patient/family oriented to hospital policies and general routines including ID bracelet, bed and alarms, visiting hours, pain management, procedures, bathroom and other care routines, personal items, smoking policy, room service/diet, and visiting hours. Information on how to activate the Rapid Response Team has been discussed. Patient/Family are encouraged to report perceived risks to care and to ask questions if they do not understand what they are told or what they should do.
[2023-01-28] MEDS: SODIUM CHLORIDE 0.9% IV 1,000 ML 20 ML (04:11)
--- NOTE | 2023-01-28 06:07 | PM.IMHP ---
H&P: HPI History of Present Illness Date/Time: 01/28/23 00:30 Chief Complaint: Chest pain Narrative: 82-year-old female with a past medical history of coronary artery disease, peripheral artery disease, cervical cancer, paroxysmal atrial fibrillation on anticoagulation Eliquis, peptic ulcer disease and chronic kidney disease stage 3 among other comorbidities who presented to the ER with chest pain and weakness. The patient reports that she had just had a nerve ablation to her low back at [facility] 5 days ago. She reports her low back pain has improved. However despite that she has been feeling persistently weak and fatigued. She noticed that she is having substernal chest pain that is worse with activity but is occurring when she is at rest. She also reports pain in her midback as well. She does have a known history of peripheral artery disease and has some history of claudication. She did prior femoral stent. She states that she used to occasionally gets claudication symptoms but now is getting claudication symptoms after only 4 5 steps. Her has noted that she has had more pallor. The patient denies any palpitations. She gets her medical care at several facilities in the area including in [place] where she sees her urologist and here where she sees Dr. Peres for Nephrology. She also goes to [place] for her cervical cancer but finished her chemotherapy and radiation therapy in April. She states that she has not had blood work done in a couple of months. Given her symptoms when she presented in the ER the obtained basic labs which demonstrated a profound anemia with hemoglobin of 4.5. In hindsight she mentions that she has had some black stools a couple of weeks ago but did not mention it to her . And over the last 2 or 3 days she has been having dark black stools. Her rectal exam in the ER was positive for occult blood. She has been having some GERD symptoms as well on and off over the last several weeks. She denies any significant vomiting but has been having some occasional nausea. She reports that her chest really isn't hurting as much is feeling short of breath and tightness. She denies any palpitations but has been noticing a rapid heart rate if she is exerting herself. She does report intermittent chronic constipation. She reports that her appetite is relatively good in that her weight is been stable. The patient reports that with administration of blood her chest tightness has completely resolved. Her claudication symptoms have also resolved since blood transfusion has started. Source of information comes from review of past medical records and the patient and her 's report. Patient her are fair historians but patient does seem to be having some difficulty recalling details for medical history and looks to her to provide a lot of the answers. Review of Systems Review of Systems: 12 systems were reviewed with pertinent positives and negatives per HPI. Except as documented in the HPI, all other systems were reviewed and are negative. [facility] Past Medical History Medical History (Updated 01/28/23 @ 07:55 by Alejandra Foley, DO) Cardiomyopathy Around 1999 the patient had a cardiomyopathy with EF down to 24%, due to an autoimmune problem, recovered. 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
[2023-01-28] MEDS: CARBIDOPA/LEVODOPA 25/100 MG TABLET 1 TABLET PO ×3 (08:27→16:43)
[2023-01-28] MEDS: allopurinoL 300 MG TABLET PO (08:28)
[2023-01-28] MEDS: CYANOCOBALAMIN INJ 1,000 MCG/ML VIAL 1000 MCG IM (08:28)
[2023-01-28] MEDS: PANTOPRAZOLE SODIUM IV 40 MG VIAL IV PUSH ×2 (08:29→16:43)
[2023-01-28 08:39] LABS: Hematocrit 27.2 % (37.0-47.0); Hemoglobin 8.8 g/dL (12.0-15.0); Mean Corpuscular HGB Conc 32.4 g/dl (32-36); Mean Corpuscular Hemoglobin 30.4 pg (26-34); Mean Corpuscular Volume 94.1 fl (80-100); Mean Platelet Volume 9.2 fl (7.4-10.4); Platelet Count Result 173 k/mm3 (150-375); Red Blood Count 2.89 M/mm3 (4.2-5.4); Red Cell Distribution Width 19.6 % (11.5-14.5); White Blood Count 8.8 K/mm3 (4.5-10.0)
[2023-01-28 08:48] LABS: Anion Gap 8 mmol/L (8-16); Blood Urea Nitrogen 55 mg/dL (7-17); Carbon Dioxide 18 mmol/L (22-30); Chloride 113 mmol/L (98-107); Estimated CRCL calculation 20 ml/min; Estimated Glomerular Filt Rate 36; Glucose 107 mg/dL (65-110); Phosphorus 4.5 mg/dL (2.5-4.5); Potassium 4.5 mmol/L (3.4-5.0); Sodium 139 mmol/L (137-145)
[2023-01-28] MEDS: SODIUM BICARBONATE TAB 325 MG TABLET PO ×2 (10:42→16:48)
--- NOTE | 2023-01-28 11:13 | PM.CNCAR ---
Assessment and Plan Assessment and plan (1) Elevated troponin: Code(s): R77.8 - Other specified abnormalities of plasma proteins Status: Acute Plan This is an 82-year-old woman with a history of previous cardiomyopathy that resolved with standard medical therapy a long time ago. She also has a history of an episode of atrial fibrillation coinciding with some chemotherapy but no recurrence of atrial fib for something like several years. She comes into the hospital now with symptomatic profound anemia. She does have description of some melanotic screw stools but surprisingly has macrocytic red cell indices. She was having some ischemic chest pain, did send some ischemic ECG changes and a significant troponin rise in this setting as well. This is a so-called type 2 myocardial infarction resulting from profound anemia. Red cell transfusion has already been administered she should be taken off of anticoagulation and it should not be restarted. A more difficult decision is whether to keep her on low-dose aspirin at some point. She did have a carotid artery stent recently and resumption of some anti-platelet therapy needs to be considered. Once she stabilizes 1 might consider resuming clopidogrel rather than aspirin particularly if she has peptic ulcer disease with serious bleeding Andrea Hall MD [facility] History of Present Illness History of Present Illness Consult date/time: 01/28/23 11:13 Reason For Visit: Severe anemia, upper GI bleeding Narrative: This is an 82-year-old woman that I am seeing at the request of the hospitalist because of elevated troponin level and chest pain. The patient is known to me with a history of atrial fibrillation and a previous history of a chemotherapy related or immunologic related cardiomyopathy. She came to the hospital yesterday with symptoms of severe weakness, lower extremity pain and a history of chest pain. Her chest pain would primarily occur with activity such as ambulating she was very weak and really could not ambulate much. Because of these symptoms she came to the emergency room. During the course of her evaluation she was who was found to be profoundly anemic with a hemoglobin of 4.5. She has macrocytic indices. She was reporting what sounded like grossly melanotic stool for a couple of weeks prior to coming in to the hospital. She has been given a red cell transfusion and hemoglobin is 8.8 she feels much better and offers no complaints at this time. She has a history of atrial fibrillation which was felt to be a combination of response to her chemotherapy that she was receiving at [facility] for a treatment of a previously. She does not have a specific history of coronary artery disease. A long time ago she was found to have a low ejection fraction as mentioned in previous notes. With standard medical therapy that improved and essentially normalized. Because of the atrial fibrillation she had been placed on apixaban and following admission to [facility] for consultation in May of 2022 she was seen by me in our practice for follow-up of her AFib. Her last appointment was in July of this year which time she was feeling well and did not have any cardiovascular complaints. She states she was at [facility] in an outpatient procedure for radiofrequency ablation of her lumbar spine for some chronic back pain. She did not have any blood work at the time of that evaluation. She does report a history of bleeding ulcers in the past she was described as having a bleeding ulcer noted endoscopically she thinks about 2 or 3 years ago. At that time she was told to discontinue NSAIDs. Complicating all of this is that she also has an apparent history of a right carotid stenosis that was treated with stenting at [facility] several months ago. She was on aspirin and clopidogrel after that most recently she was taken off of clopidogrel and told him to remain on aspirin
--- NOTE | 2023-01-28 13:02 | WPDGICN ---
Assessment and Plan Assessment and plan (1) Acute on chronic anemia: Code(s): D64.9 - Anemia, unspecified Status: Acute Assessment and Plan: profound anemia that also caused ischemic heart disease, better after blood transfusion eliquis discontinued now she has known history of ulcer in duodenum 2020 will proceed with egd and colonoscopy (family and patient agreeable) protonix for now (2) NSTEMI (non-ST elevated myocardial infarction): Code(s): I21.4 - Non-ST elevation (NSTEMI) myocardial infarction Status: Acute Assessment and Plan: no more chest pain cardiology on board (3) Cervical cancer: Code(s): C53.9 - Malignant neoplasm of cervix uteri, unspecified Status: Acute (4) Melena: Code(s): K92.1 - Melena Status: Acute Assessment and Plan: egd tomorrow protonix monitor for signs of bleeding (5) Chronic kidney disease, stage 3 (moderate): Qualifiers: Chronic kidney disease stage 3 subtype: stage 3a (GFR 45-59) Qualified Code(s): N18.31 - Chronic kidney disease, stage 3a Code(s): N18.3 - Chronic kidney disease, stage 3 (moderate) Status: Acute (6) Paroxysmal atrial fibrillation: Code(s): I48.0 - Paroxysmal atrial fibrillation Status: Acute (7) Peripheral vascular disease: Code(s): I73.9 - Peripheral vascular disease, unspecified Status: Acute GI Consult Note Consult date/time: 01/28/23 13:02 Reason for consult: melena, acute on chronic anemia HPI: Marilyn Stephenson is a 82 year old female with medical history of coronary artery disease, peripheral artery disease on aspirin, right carotid stenosis that was treated with stenting at [facility] several months ago (not longer on plavix), TIA, cervical cancer- finished her chemotherapy and radiation therapy in April at [facility], paroxysmal atrial fibrillation on anticoagulation Eliquis, peptic ulcer disease (2019 had duodenal ulcer- repeat EGD by Dr Chino showed healing of ulcer), chronic kidney disease stage 3 who presented to the ER with progressive chest pain and generalized weakness.? She had just had a nerve ablation to her low back at [facility] 5 days ago and low back pain has improved but she has been feeling quite weak. Blood work revealed significant anemia with hemoglobin of 4.5, given blood transfusion and feeling better now, chest pain resolved but troponin up to 7 and evaluated by cardiology. She had dark stools for last few days, denies abdominal pain, no nausea. Last colonoscopy about 9 years ago. Review of Systems Constitutional: Constitutional: Reports fatigue and Reports lethargy Eyes: Eyes: Denies blurry vision ENT: Reports Normal hearing present Cardiovascular: Cardiovascular: Reports chest pain Respiratory: Respiratory: Denies cough Gastrointestinal: Gastrointestinal: Reports melena Genitourinary: Genitourinary: Denies dysuria Musculoskeletal: Musculoskeletal: Denies arthralgias Integumentary/Breasts: Skin/Breast: Denies rash Neurologic: Denies Abnormal speech present Psychiatric: Psychiatric: Denies behavioral changes [facility] Past Medical History Medical History (Updated 01/28/23 @ 13:22 by Keenan Simeon MD) Cardiomyopathy Around 1999 the patient had a cardiomyopathy with EF down to 24%, due to an autoimmune problem, recovered. 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
[2023-01-28 13:24] LABS: Appearance Urine Clear (Clear); Bacteria Urine None Seen /hpf; Bilirubin Urine Negative (Negative); Blood Urine Negative (Negative); Color Urine Yellow (Yellow); Glucose Urine UA Negative (Negative); Ketones Urine Negative (Negative); Leukocyte Esterase Ur Trace LEU/UL (Negative); Nitrate Urine Negative (Negative); Non Pathogenic Casts 0-2; Protein Urine Trace mg/dL (Negative); RBC Urine 0-2 /hpf (0-2); Specific Grav Ur 1.025 (1.001-1.035); Squamous Epithelial Cell Urine None seen /hpf (Few); Urobilinogen Urine 0.2 mg/dL (<2.0)
[2023-01-28 13:27] LABS: Add Urine Microscopic? YES
[2023-01-28] MEDS: ACETAMINOPHEN 500 MG TABLET 1000 MG PO (14:01)
[2023-01-28 15:06] LABS: Hematocrit 27.5 % (37.0-47.0); Hemoglobin 8.9 g/dL (12.0-15.0)
--- NOTE | 2023-01-28 15:09 | WPDPN ---
Progress Note: A&P Assessment and Plan (1) Acute on chronic anemia: Code(s): D64.9 - Anemia, unspecified Status: Acute (2) Severe anemia: Code(s): D64.9 - Anemia, unspecified Status: Acute (3) B12 deficiency: Code(s): E53.8 - Deficiency of other specified B group vitamins Status: Acute (4) Peripheral artery disease: Code(s): I73.9 - Peripheral vascular disease, unspecified Status: Acute (5) Elevated troponin: Code(s): R77.8 - Other specified abnormalities of plasma proteins Status: Acute (6) Chest pain: Code(s): R07.9 - Chest pain, unspecified Status: Acute (7) Claudication: Code(s): I73.9 - Peripheral vascular disease, unspecified Status: Acute (8) Acute kidney injury superimposed on chronic kidney disease: Code(s): N17.9 - Acute kidney failure, unspecified; N18.9 - Chronic kidney disease, unspecified Status: Acute Plan The patient has severe symptomatic anemia likely due to upper GI but losses. The patient has melena on rectal exam and has labs consistent with iron deficiency anemia. She does have a history of prior ulcers. Patient was started on Protonix IV b.i.d.. GI has been consulted. 3 units of packed red blood cells have been ordered. At the end of my shift the patient had just completed 2 units of blood. Repeat CBC and electrolyte panel has been ordered. Will continue with 3rd unit of transfusion as well. The patient is NPO for probable EGD. The patient's anemia is a combination of iron deficiency and B12 deficiency. Will place patient on IM B12 supplements weekly for 1 month. The patient did have chest pain likely due to her severe anemia. She did have some mild troponin leak. Likely secondary to type 2 infarct from severe anemia. The patient's Eliquis and aspirin are on hold due to acute bleeding. The patient does have peripheral vascular disease and has some chronic claudication that had worsened with her acute anemia. Her symptoms have since resolved. The patient does have significant femoral stenosis noted on CTA. Patient could follow-up with vascular surgery as outpatient. Patient does not have evidence of acute changing or evolving limb ischemia. She still has relatively preserved perfusion on exam. Patient has acute kidney injury on chronic kidney disease likely due to hypovolemia. However patient may be having some component of incomplete bladder emptying. Will continue to monitor and check postvoid residual. Will continue volume replacement primarily with blood then may consider additional IV fluids after that time. Repeat electrolyte panels have been ordered. Patient's serum bicarb is low. Will provide oral sodium bicarb supplement once no longer NPO. Patient has been admitted as observation status. 01/28/2023 interval history: patient presented with severe anemia with hgb of 4.5 patient on Eliquis for A.Fib which is now on hold, patient was given 2 units of PRBC Hgb is trending up and will monitor, Patient is seen by GI and EGD and colonoscopy is scheduled for tomorrow, patient presented with c/o CP, her initial trops was 0.49 and jumped to 7.7 patient seen by Cardiology suspect type 2 MD secondary to stress due to profound anemia, recommended to hold Eliquis and patient will need anti-platelet once clinically stable is patient has recent carotid artery a stent. Patient remains clinically stable will continue to monitor, her is present in the room. Subjective Date/time seen: 01/28/23 15:09 Interval history: Chest pain HPI-Narrative: 82-year-old female with a past medical history of coronary artery disease, peripheral artery disease, cervical cancer, paroxysmal atrial fibrillation on anticoagulation Eliquis, peptic ulcer disease and chronic kidney disease stage 3 among other comorbidities who presented to the ER with chest pain and weakness.? The patient reports that she had just had a
[2023-01-28] MEDS: BISACODYL 5 MG TABLET EC 20 MG PO (16:43)
[2023-01-28] MEDS: polyethylene glycoL 3350 238 GM BOTTLE PO (16:48)
[2023-01-28] MEDS: ATORVASTATIN 40 MG TABLET 80 MG PO (20:15)
[2023-01-28 20:53] LABS: Hematocrit 28.2 % (37.0-47.0); Hemoglobin 8.7 g/dL (12.0-15.0)
[2023-01-29] VITALS (23 sets, daily range): BP systolic 99–132; BP diastolic 47–77; PULSE 63–92; RESP 12–20; TEMP 36.1–36.9; O2SAT 96–100
[2023-01-29 03:03] LABS: Hematocrit 25.3 % (37.0-47.0); Mean Corpuscular HGB Conc 31.6 g/dl (32-36); Mean Corpuscular Hemoglobin 30.2 pg (26-34); Mean Corpuscular Volume 95.5 fl (80-100); Mean Platelet Volume 8.8 fl (7.4-10.4); Platelet Count Result 176 k/mm3 (150-375); Red Blood Count 2.65 M/mm3 (4.2-5.4); Red Cell Distribution Width 20.9 % (11.5-14.5); White Blood Count 10.7 K/mm3 (4.5-10.0)
[2023-01-29 03:18] LABS: Alanine Aminotransferase 15 U/L (6-35); Albumin Level 3.1 g/dL (3.5-5.1); Alkaline Phosphatase 52 U/L (38-126); Anion Gap 8 mmol/L (8-16); Aspartate Amino Transferase 27 U/L (14-36); Bilirubin,Total 0.3 mg/dL (0.2-1.3); Blood Urea Nitrogen 45 mg/dL (7-17); Calcium 7.7 mg/dL (8.4-10.2); Carbon Dioxide 14 mmol/L (22-30); Chloride 111 mmol/L (98-107); Estimated CRCL calculation 23 ml/min; Estimated Glomerular Filt Rate 43; Glucose 116 mg/dL (65-110); Magnesium 1.9 mg/dL (1.6-2.3); Potassium 3.3 mmol/L (3.4-5.0); Sodium 133 mmol/L (137-145)
--- NOTE | 2023-01-29 06:29 | PC.NURSE ---
Patient completed bowel prep before midnight....stools still tarry...reported to Dr. Simeon and GI lab. New orders received.
[2023-01-29] MEDS: MAGNESIUM CITRATE 300 ML BTL PO (06:54)
[2023-01-29] MEDS: PANTOPRAZOLE SODIUM IV 40 MG VIAL IV PUSH ×2 (08:48→17:45)
[2023-01-29] MEDS: LIDOCAINE HCL 1% LOCAL INJ 2 ML AMPUL 5 ML INFILTRATE (10:30)
--- NOTE | 2023-01-29 10:31 | WPDANESEPPF ---
Anes - Initial Pre Proc Eval Procedure: Operation Date: 01/29/23 11:15 Proposed Procedures p Esophagogastroduodenoscopy & Colonoscopy - Keenan Simeon MD Date/Time: 01/29/23 10:31 Surgeon: Alejandra Foley DO Pre Op Diagnosis: Severe anemia, upper GI bleeding Patient Data Age: 82 Gender: F Height: 1.52 m Weight: 50.2 kg Last Vital Signs Temp 97.1 F L 01/29/23 08:06 Pulse 83 01/29/23 08:06 Resp 16 01/29/23 08:06 BP 109/60 01/29/23 03:52 Pulse Ox 100 01/29/23 08:06 O2 Del Method Room Air 01/29/23 04:00 O2 Flow Rate 2 01/27/23 23:42 FiO2 21 01/28/23 21:18 Allergies Allergy/AdvReac Type Severity Reaction Status Date / Time latex Allergy Mild rash Verified 01/29/23 10:24 aspirin AdvReac Mild stomach Verified 01/29/23 10:24 pain Home Medications Medication Instructions Recorded Confirmed Type acetaminophen 500 mg tablet 1,000 mg PO Q6H PRN Mild Pain 01/12/22 01/28/23 Rx (1-3) Or Fever 10 days #60 tabs allopurinol 300 mg tablet 300 mg PO DAILY #90 tabs 01/28/22 01/28/23 Rx apixaban 2.5 mg tablet 2.5 mg PO BID #180 tabs 07/22/22 01/28/23 Rx aspirin 81 mg tablet,delayed 81 mg PO DAILY 11/19/22 01/28/23 History release (Vianey Low Dose Aspirin) atorvastatin 80 mg tablet 80 mg PO QHS #90 tabs 12/02/22 01/28/23 Rx furosemide 20 mg tablet 20 mg PO QAM #30 tabs 12/09/22 01/28/23 Rx carbidopa 25 mg-levodopa 100 mg 1 tablet PO TID 01/28/23 01/28/23 History tablet Laboratory Tests 01/28/23 01/28/23 01/28/23 13:11 14:58 20:38 WBC RBC Hgb 8.9 L g/dL 8.7 L g/dL (12.0-15.0) (12.0-15.0) Hct 27.5 L % 28.2 L % (37.0-47.0) (37.0-47.0) MCV MCH MCHC RDW Plt Count MPV Sodium Potassium Chloride Carbon Dioxide Anion Gap BUN Creatinine Estim Creat Clear Calc Estimated GFR Glucose Calcium Magnesium Total Bilirubin AST ALT Alkaline Phosphatase Total Protein Albumin Urine Color Yellow (Yellow) Urine Appearance Clear (Clear) Urine pH 6.0 (5.0-9.0) Ur Specific [place] 1.025 (1.001-1.035) Urine Protein Trace mg/dL (Negative) Urine Glucose (UA) Negative mg/dL (Negative) Urine Ketones Negative mg/dL (Negative) Ur Blood (Man) Negative (Negative) Urine Nitrate Negative (Negative) Urine Bilirubin Negative (Negative) Urine Urobilinogen 0.2 mg/dL (<2.0) Leukocyte Esterase Rfl Trace H TONNY/UL (Negative) Urine RBC 0-2 /hpf (0-2) Urine WBC 6-10 H /hpf Ur Squamous Epith Cells None seen /hpf (Few) Urine Bacteria None seen /hpf Urine Casts 0-2 01/29/23 02:52 WBC 10.7 H K/mm3 (4.5-10.0) RBC 2.65 L M/mm3 (4.2-5.4) Hgb 8.0 L g/dL (12.0-15.0) Hct 25.3 L % (37.0-47.0) MCV 95.5 fl (80-100) MCH 30.2 pg (26-34) MCHC 31.6 L g/dl (32-36) RDW 20.9 H % (11.5-14.5) Plt Count 176 k/mm3 (150-375) MPV 8.8 fl (7.4-10.4) Sodium 133 L mmol/L (137-145) Potassium 3.3 L mmol/L (3.4-5.0) Chloride 111 H mmol/L (98-107) Carbon Dioxide 14 L mmol/L (22-30) Anion Gap 8 mmol/L (8-16) BUN 45 H D mg/dL (7-17) Creatinine 1.20 H mg/dL (0.7-1.0) Estim Creat Clear Calc 23 ml/min Estimated GFR 43 L (59 - ) Glucose 116 H mg/dL (65-110) Calcium 7.7 L mg/dL (8.4-10.2) Magnesium 1.9 mg/dL (1.6-2.3) Total Bilirubin 0.3 mg/dL (0.2-1.3) AST 27 U/L (14-36) ALT 15 U/L (6-35) Alkaline Phosphatase 52 U/L (38-126) Tota
[2023-01-29] MEDS: LACTATED RINGERS 1,000 ML 150 ML IV CONT (10:54)
--- NOTE | 2023-01-29 11:03 | SUR.OPER ---
EGD: [id number] COLON: [id number]
--- NOTE | 2023-01-29 11:31 | PC.NURSE ---
1010- to GI lab for EGD/COLONOSCOPY via stretcher accompanied by RN
--- NOTE | 2023-01-29 14:51 | PM.IMPN ---
Progress Note: A&P Assessment and Plan (1) Acute on chronic anemia: Code(s): D64.9 - Anemia, unspecified Status: Acute Assessment and Plan: Patient presented with severe anemia with hgb of 4.5 patient on Eliquis for A.Fib which is now on hold, patient was given 2 units of PRBC Hgb is trending up and will monitor, Patient is seen by GI and EGD and colonoscopy is scheduled for tomorrow, patient presented with c/o CP, her initial trops was 0.49 and jumped to 7.7 patient seen by Cardiology suspect type 2 NC secondary to stress due to profound anemia, recommended to hold Eliquis and patient will need anti-platelet once clinically stable is patient has recent carotid artery a stent. (2) Severe anemia: Code(s): D64.9 - Anemia, unspecified Status: Acute Assessment and Plan: Pt having extensive tests today EGD Colonoscopy and small bowel follow through continue to monitor in hospital watch hb levels Scopes show gastritis and chronic DU. (3) B12 deficiency: Code(s): E53.8 - Deficiency of other specified B group vitamins Status: Acute (4) Peripheral artery disease: Code(s): I73.9 - Peripheral vascular disease, unspecified Status: Acute (5) Elevated troponin: Code(s): R77.8 - Other specified abnormalities of plasma proteins Status: Acute (6) Chest pain: Code(s): R07.9 - Chest pain, unspecified Status: Acute (7) Claudication: Code(s): I73.9 - Peripheral vascular disease, unspecified Status: Acute (8) Acute kidney injury superimposed on chronic kidney disease: Code(s): N17.9 - Acute kidney failure, unspecified; N18.9 - Chronic kidney disease, unspecified Status: Acute Plan . Subjective Date/time seen: 01/29/23 14:51 Interval history: 82-year-old female with a past medical history of coronary artery disease, peripheral artery disease, cervical cancer, paroxysmal atrial fibrillation on anticoagulation Eliquis, peptic ulcer disease and chronic kidney disease stage 3 among other comorbidities who presented to the ER with chest pain and weakness.? The patient reports that she had just had a nerve ablation to her low back at [facility] 5 days ago.? She reports her low back pain has improved.? However despite that she has been feeling persistently weak and fatigued.? She noticed that she is having substernal chest pain that is worse with activity but is occurring when she is at rest.? She also reports pain in her midback as well.? She does have a known history of peripheral artery disease and has some history of claudication.? She did prior femoral stent.? She states that she used to occasionally gets claudication symptoms but now is getting claudication symptoms after only 4 5 steps.? Her has noted that she has had more pallor.? The patient denies any palpitations.? She gets her medical care at several facilities in the area including in [place] where she sees her urologist and here where she sees Dr. Peres for Nephrology.? She also goes to [place] for her cervical cancer but finished her chemotherapy and radiation therapy in April.? She states that she has not had blood work done in a couple of months.? Given her symptoms when she presented in the ER the obtained basic labs which demonstrated a profound anemia with hemoglobin of 4.5.? In hindsight she mentions that she has had some black stools a couple of weeks ago but did not mention it to her .? And over the last 2 or 3 days she has been having dark black stools.? Her rectal exam in the ER was positive for occult blood.? She has been having some GERD symptoms as well on and off over the last several weeks.? She denies any significant vomiting but has been having some occasional nausea.? She reports that her chest really isn't hurting as much is feeling short of breath and tightness.? She denies any palpitations but has been noticing a rapid heart rate if she is exert
[2023-01-29] MEDS: ACETAMINOPHEN 500 MG TABLET 1000 MG PO (14:53)
[2023-01-29] MEDS: CARBIDOPA/LEVODOPA 25/100 MG TABLET 1 TABLET PO ×2 (14:54→17:47)
--- NOTE | 2023-01-29 16:16 | PC.NURSE ---
1235- pt went directly to XRAY directly to SBFT from GI lab- monitor shows SR 70's
[2023-01-29] MEDS: SODIUM BICARBONATE TAB 325 MG TABLET PO (17:46)
[2023-01-29] MEDS: allopurinoL 300 MG TABLET PO (17:46)
[2023-01-29] MEDS: CYANOCOBALAMIN INJ 1,000 MCG/ML VIAL 1000 MCG IM (18:04)
[2023-01-29] MEDS: SALINE LOCK FLUSH 10 ML IV PUSH (21:23)
[2023-01-29] MEDS: ATORVASTATIN 40 MG TABLET 80 MG PO (21:23)
[2023-01-30] VITALS (11 sets, daily range): BP systolic 110–145; BP diastolic 47–84; PULSE 78–90; RESP 16–18; TEMP 36–37; O2SAT 96–100
[2023-01-30 04:14] LABS: Hematocrit 22.7 % (37.0-47.0); Hemoglobin 7.1 g/dL (12.0-15.0); Mean Corpuscular HGB Conc 31.3 g/dl (32-36); Mean Corpuscular Hemoglobin 30.1 pg (26-34); Mean Corpuscular Volume 96.2 fl (80-100); Mean Platelet Volume 9.1 fl (7.4-10.4); Platelet Count Result 185 k/mm3 (150-375); Red Blood Count 2.36 M/mm3 (4.2-5.4); White Blood Count 8.5 K/mm3 (4.5-10.0)
[2023-01-30] MEDS: ACETAMINOPHEN 500 MG TABLET 1000 MG PO ×2 (04:22→10:57)
[2023-01-30] MEDS: SALINE LOCK FLUSH 10 ML IV PUSH ×3 (04:25→20:45)
[2023-01-30 04:34] LABS: Alanine Aminotransferase 14 U/L (6-35); Alkaline Phosphatase 70 U/L (38-126); Anion Gap 6 mmol/L (8-16); Aspartate Amino Transferase 21 U/L (14-36); Bilirubin,Total 0.2 mg/dL (0.2-1.3); Blood Urea Nitrogen 33 mg/dL (7-17); Carbon Dioxide 20 mmol/L (22-30); Chloride 111 mmol/L (98-107); Estimated CRCL calculation 16 ml/min; Estimated Glomerular Filt Rate 29; Glucose 115 mg/dL (65-110); Magnesium 2.6 mg/dL (1.6-2.3); Potassium 3.6 mmol/L (3.4-5.0); Sodium 137 mmol/L (137-145)
[2023-01-30] MEDS: SODIUM BICARBONATE TAB 325 MG TABLET PO ×2 (09:05→17:14)
[2023-01-30] MEDS: allopurinoL 300 MG TABLET PO (09:05)
[2023-01-30] MEDS: PANTOPRAZOLE SODIUM IV 40 MG VIAL IV PUSH ×2 (09:05→17:14)
[2023-01-30] MEDS: CARBIDOPA/LEVODOPA 25/100 MG TABLET 1 TABLET PO ×3 (09:05→17:14)
--- NOTE | 2023-01-30 11:32 | PM.IMPN ---
Progress Note: A&P Assessment and Plan (1) Acute on chronic anemia: Code(s): D64.9 - Anemia, unspecified Status: Acute Assessment and Plan: Patient presented with severe anemia with hgb of 4.5 patient on Eliquis for A.Fib which is now on hold, patient was given 2 units of PRBC Hgb is trending up and will monitor, Patient is seen by GI and EGD and colonoscopy is scheduled for tomorrow, patient presented with c/o CP, her initial trops was 0.49 and jumped to 7.7 patient seen by Cardiology suspect type 2 [place] secondary to stress due to profound anemia, recommended to hold Eliquis and patient will need anti-platelet once clinically stable is patient has recent carotid artery a stent. (2) Severe anemia: Code(s): D64.9 - Anemia, unspecified Status: Acute Assessment and Plan: Pt having extensive tests today EGD Colonoscopy and small bowel follow through continue to monitor in hospital watch hb levels Scopes show gastritis and chronic DU. (3) B12 deficiency: Code(s): E53.8 - Deficiency of other specified B group vitamins Status: Acute (4) Peripheral artery disease: Code(s): I73.9 - Peripheral vascular disease, unspecified Status: Acute (5) Elevated troponin: Code(s): R77.8 - Other specified abnormalities of plasma proteins Status: Acute (6) Chest pain: Code(s): R07.9 - Chest pain, unspecified Status: Acute (7) Claudication: Code(s): I73.9 - Peripheral vascular disease, unspecified Status: Acute (8) Acute kidney injury superimposed on chronic kidney disease: Code(s): N17.9 - Acute kidney failure, unspecified; N18.9 - Chronic kidney disease, unspecified Status: Acute Plan 01/30/2023: 82-year-old female with coronary artery disease peripheral artery disease cervical cancer proximal atrial fibrillation on anticoagulation with Eliquis peptic ulcer disease and chronic kidney disease stage 3 presented with chest pain and weakness. She has had a nerve improved ablation to her low back done at [facility] 5 days ago. Her low back pain has improved. However she fell persistently weak and fatigued with substernal chest pain that got worse with activity. Her lab work evaluation in the ED demonstrated profound anemia with hemoglobin of 4.5. She did report some black stool couple weeks ago. Rectal exam in the ER was positive for occult blood. Also has GERD symptoms on and off. Eliquis placed on hold. Received 2 unit of PRBC hemoglobin trended up and fairly stable. Continue to monitor H& H. GI consulted. EGD and colonoscopy performed 01/29/2023. VELASQUEZ on CKD stage 3 creatinine bumped up to 1.7.. Recent CTA performed on 01/28/2023 with extensive atherosclerotic change.. EGD 01/29/2023: Pyloric stenosis mild with minimal localized inflammation no signs recent bleeding biopsies taken. Colonoscopy 01/29/2023: Colon polyps and diverticulosis luminal colonic blood in noted. Hold Eliquis small-bowel follow-through with contrast reaching large bowel at 3-1/2 elda 7 mm IV L diverticulum. Nuclear medicine GI bleeding study if clinically warranted. H&H down to 7.1 today. Will continue to monitor for now. If further drops will do nuclear test. History of cervical cancer underwent treatment. Cardiomyopathy peripheral vascular disease consideration of Plavix rather than aspirin due to peptic ulcer disease process. Awaiting stability Subjective Date/time seen: 01/30/23 11:32 Interval history: 82-year-old female with a past medical history of coronary artery disease, peripheral artery disease, cervical cancer, paroxysmal atrial fibrillation on anticoagulation Eliquis, peptic ulcer disease and chronic kidney disease stage 3 among other comorbidities who presented to the ER with chest pain and weakness.? The patient reports that she had just had a nerve ablation to her low back at [facility] 5 days ago.? She reports her low back pain h
--- NOTE | 2023-01-30 14:03 | WPDANESPN ---
Anes - Prog Note Post-Op Date/Time: 01/30/23 14:03 Cardiovascular status: normal Respiratory status: normal Airway patency: baseline Mental status: baseline Post-Op hydration status: normal Vital Signs: Last Vital Signs Temp 36.4 C L 01/30/23 12:00 Pulse 81 01/30/23 12:00 Resp 16 01/30/23 12:00 BP 119/53 L 01/30/23 12:00 Pulse Ox 96 01/30/23 12:00 O2 Del Method Room Air 01/30/23 08:00 O2 Flow Rate 2 01/27/23 23:42 FiO2 21 01/28/23 21:18 Pain Score (VAS): 0/10 I/O: Intake & Output 01/29/23 01/30/23 01/30/23 23:59 07:59 15:59 Intake Total 335 200 120 Output Total 202 200 Balance 133 0 120 Laboratory Tests 01/30/23 03:57 01/30/23 03:57 01/27/23 01/30/23 22:50 03:57 WBC 8.5 RBC 2.36 L Hgb 7.1 L Hct 22.7 L MCV 96.2 MCH 30.1 MCHC 31.3 L RDW 20.0 H Plt Count 185 MPV 9.1 Sodium 137 Potassium 3.6 Chloride 111 H Carbon Dioxide 20 L Anion Gap 6 L BUN 33 H D Creatinine 1.70 H Estim Creat Clear Calc 16 Estimated GFR 29 L Glucose 115 H Calcium 8.0 L Magnesium 2.6 H Total Bilirubin 0.2 AST 21 ALT 14 Alkaline Phosphatase 70 Total Protein 5.0 L Albumin 3.0 L Crossmatch See Detail Microbiology 01/28/23 13:11 Unspecified Urine Culture - Final Post-procedural complaints: none Patient Feedback: Patient satisfied with anesthetic care.
--- NOTE | 2023-01-30 14:26 | WPDGIPROGNO ---
Progress Note: A&P Assessment and Plan (1) GIB (gastrointestinal bleeding): Code(s): K92.2 - Gastrointestinal hemorrhage, unspecified Status: Acute Assessment and Plan: probably from small bowel source (noted hematin in right colon and also TI) sbft was not definitive, diverticula in ileum hgb low- if drops more or obvious signs of bleeding then can order GIB scan I recommend to get small bowel capsule study as outpatient and she is agreeable, will set up (probably cause of bleeding was affected by recent use of blood thinner) (2) Melena: Code(s): K92.1 - Melena Status: Acute Assessment and Plan: monitor for more signs of bleeding found mild pyloric stenosis protonix daily (3) NSTEMI (non-ST elevated myocardial infarction): Code(s): I21.4 - Non-ST elevation (NSTEMI) myocardial infarction Status: Acute Assessment and Plan: from severe anemia evaluated by cardiology (4) Acute on chronic anemia: Code(s): D64.9 - Anemia, unspecified Status: Acute Assessment and Plan: trend h/h she is feeling much better (5) Peripheral artery disease: Code(s): I73.9 - Peripheral vascular disease, unspecified Status: Acute Subjective Date/time seen: 01/30/23 14:26 Interval history: doing much better egd showed mild pyloric stenosis but no signs of bleeding colonoscopy with large polyps removed, then noted hematin in colon and TI- bleeding probably from small bowel Review of Systems Review of Systems: All systems reviewed & are unremarkable except as noted in HPI and below Exam Const: General: comfortable and no acute distress HENMT: Face/Nose/Sinus: Normal nares present Eyes: General: appearance normal, both eyes and all related structures Neck: Neck: supple Resp: Auscultation: clear to auscultation bilaterally Cardio: Rate: regular rate Rhythm: regular rhythm GI: Inspection: non-distended GI Palp: Yes Soft to palpation and No Tenderness to palpation present (GI) Auscultation: normal bowel sounds Skin: General skin exam: normal color Neuro: Speech: normal speech Motor exam (neuro): 5/5 motor strength present throughout Extrem: General: normal to inspection Psych: Mental Status: mental status grossly normal Objective Data Vital Signs Vital Signs: Vital Signs - 24 hr 01/29/23 17:37 01/29/23 17:43 01/29/23 18:00 Temperature 98.4 F Pulse Rate 85 78 74 Respiratory Rate 18 Blood Pressure 132/70 Pulse Oximetry 98 Oxygen Delivery 01/29/23 19:56 01/29/23 20:00 01/29/23 21:00 Temperature 96.9 F L 98.2 F Pulse Rate 87 Respiratory Rate 18 Blood Pressure 105/47 L Pulse Oximetry 99 99 Oxygen Delivery Room Air 01/29/23 20:00 01/29/23 22:00 01/29/23 23:47 Temperature 98.4 F Pulse Rate 82 81 87 Respiratory Rate 16 Blood Pressure 129/54 L Pulse Oximetry 100 Oxygen Delivery 01/29/23 23:50 01/30/23 00:00 01/30/23 02:00 Temperature Pulse Rate 82 79 Respiratory Rate Blood Pressure Pulse Oximetry 100 Oxygen Delivery Room Air 01/30/23 03:51 01/30/23 04:00 01/30/23 04:00 Temperature 98.6 F Pulse Rate 80 78 Respiratory Rate 16 Blood Pressure 145/84 H Pulse Oximetry 98 98 Oxygen Delivery Room Air 01/30/23 06:00 01/30/23 08:00 01/30/23 08:00 Temperature 97.5 F L Pulse Rate 79 82 Respiratory Rate 16 Blood Pressure 116/47 L Pulse Oximetry 100 100 Oxygen Delivery Room Air 01/30/23 08:00 01/30/23 10:00 01/30/23 12:00 Temperature 97.5 F L Pulse Rate 80 78 81 Respiratory Rate 16 Blood Pressure 119/53 L Pulse Oximetry 96 Oxygen Delivery Intake/Output Intake/Output: Intake & Output 01/27/23 01/28/23 01/29/23 01/30/23 23:59 23:59 23:59 23:59 Intake Total 1989 435 320 Output Total 800 202 200 Balance 1190 233 120 Meds/Results Medications: Active Medications Generic Name Dose Route Start Last Admin
[2023-01-30] MEDS: ATORVASTATIN 40 MG TABLET 80 MG PO (20:41)
[2023-01-31] VITALS (10 sets, daily range): BP systolic 106–143; BP diastolic 49–99; PULSE 78–86; RESP 16–20; TEMP 36.2–37; O2SAT 95–100
[2023-01-31] MEDS: SALINE LOCK FLUSH 10 ML IV PUSH ×4 (05:04→20:28)
[2023-01-31 05:42] LABS: Potassium 3.8 mmol/L (3.4-5.0)
[2023-01-31 05:50] LABS: Alanine Aminotransferase 15 U/L (6-35); Albumin Level 3.2 g/dL (3.5-5.1); Alkaline Phosphatase 64 U/L (38-126); Anion Gap 5 mmol/L (8-16); Aspartate Amino Transferase 17 U/L (14-36); Bilirubin,Total 0.3 mg/dL (0.2-1.3); Blood Urea Nitrogen 32 mg/dL (7-17); Calcium 8.1 mg/dL (8.4-10.2); Carbon Dioxide 19 mmol/L (22-30); Chloride 111 mmol/L (98-107); Estimated CRCL calculation 20 ml/min; Estimated Glomerular Filt Rate 36; Glucose 111 mg/dL (65-110); Magnesium 2.7 mg/dL (1.6-2.3); Sodium 135 mmol/L (137-145)
[2023-01-31 06:08] LABS: Hematocrit 22.7 % (37.0-47.0); Mean Corpuscular Hemoglobin 29.6 pg (26-34); Mean Corpuscular Volume 98.7 fl (80-100); Mean Platelet Volume 9.3 fl (7.4-10.4); Platelet Count Result 190 k/mm3 (150-375); Red Cell Distribution Width 19.6 % (11.5-14.5); White Blood Count 8.2 K/mm3 (4.5-10.0)
[2023-01-31 06:23] LABS: Hemoglobin 6.8 g/dL (12.0-15.0)
[2023-01-31] MEDS: SODIUM BICARBONATE TAB 325 MG TABLET PO ×2 (08:38→17:13)
[2023-01-31] MEDS: CARBIDOPA/LEVODOPA 25/100 MG TABLET 1 TABLET PO ×3 (08:38→17:13)
[2023-01-31] MEDS: PANTOPRAZOLE SODIUM IV 40 MG VIAL IV PUSH ×2 (08:39→17:14)
[2023-01-31] MEDS: SODIUM CHLORIDE 0.9% IV 250 ML 30 ML IV CONT (10:15)
--- NOTE | 2023-01-31 13:57 | WPDGIPROGNO ---
Progress Note: A&P Assessment and Plan (1) GIB (gastrointestinal bleeding): Code(s): K92.2 - Gastrointestinal hemorrhage, unspecified Status: Acute Assessment and Plan: probably from small bowel source (noted hematin in right colon and also TI) sbft was not definitive, diverticula in ileum give one more unit prcb and then trend h/h, no BM for 2 days We will set up small bowel capsule study as outpatient (probably cause of bleeding was affected by recent use of blood thinner) (2) Melena: Code(s): K92.1 - Melena Status: Acute Assessment and Plan: monitor for more signs of bleeding found mild pyloric stenosis protonix daily eating without problem (3) NSTEMI (non-ST elevated myocardial infarction): Code(s): I21.4 - Non-ST elevation (NSTEMI) myocardial infarction Status: Acute Assessment and Plan: from severe anemia evaluated by cardiology (4) Acute on chronic anemia: Code(s): D64.9 - Anemia, unspecified Status: Acute Assessment and Plan: trend h/h one more unit prbc today (5) Peripheral artery disease: Code(s): I73.9 - Peripheral vascular disease, unspecified Status: Acute Subjective Date/time seen: 01/31/23 13:57 Interval history: doing well, no overt gib but hgb down to 6.8 and right now getting another unit prbc she has not had BM since colonoscopy Review of Systems Review of Systems: All systems reviewed & are unremarkable except as noted in HPI and below Exam Const: General: comfortable and no acute distress HENMT: Face/Nose/Sinus: Normal nares present Eyes: General: appearance normal, both eyes and all related structures Neck: Neck: supple Resp: Auscultation: clear to auscultation bilaterally Cardio: Rate: regular rate Rhythm: regular rhythm GI: Inspection: non-distended GI Palp: Yes Soft to palpation and No Tenderness to palpation present (GI) Auscultation: normal bowel sounds Skin: General skin exam: normal color Neuro: Speech: normal speech Motor exam (neuro): 5/5 motor strength present throughout Extrem: General: normal to inspection Psych: Mental Status: mental status grossly normal Objective Data Vital Signs Vital Signs: Vital Signs - 24 hr 01/30/23 16:00 01/30/23 20:00 01/30/23 20:00 Temperature 96.8 F L 97.4 F L Pulse Rate 89 90 Respiratory Rate 16 18 Blood Pressure 110/62 117/50 L Pulse Oximetry 100 98 98 Oxygen Delivery Room Air 01/30/23 23:59 01/31/23 08:00 01/31/23 10:17 Temperature 97.3 F L 97.9 F 98.4 F Pulse Rate 83 82 78 Respiratory Rate 16 20 16 Blood Pressure 116/59 L 143/99 H 106/58 L Pulse Oximetry 100 97 100 Oxygen Delivery 01/31/23 10:38 01/31/23 11:38 01/31/23 12:38 Temperature 98.6 F 97.4 F L 97.5 F L Pulse Rate 79 78 81 Respiratory Rate 16 16 16 Blood Pressure 118/67 118/64 111/49 L Pulse Oximetry 100 99 Oxygen Delivery Intake/Output Intake/Output: Intake & Output 01/28/23 01/29/23 01/30/23 01/31/23 23:59 23:59 23:59 23:59 Intake Total 9222 025 1457 830 Output Total 639 686 9971 Balance 1190 233 180 830 Meds/Results Medications: Active Medications Generic Name Dose Route Start Last Admin Trade Name Freq PRN Reason Stop Dose Admin Acetaminophen 1,000 mg 01/28/23 06:56 01/30/23 10:57 Acetaminophen 500 Mg Tablet PO 1,000 mg Q6H PRN Administration Mild Pain (1-3) Or Fever Allopurinol 300 mg 01/28/23 09:00 01/31/23 08:53 Allopurinol 300 Mg Tablet PO Not Given DAILY ANABELA Atorvastatin Calcium 80 mg 01/28/23 21:00 01/30/23 20:41 Atorvastatin 40 Mg Tablet PO 80 mg QHS ANABELA Administration Carbidopa/Levodopa 1 tablet 01/28/23 09:00 01/31/23 13:36 Carbidopa/Levodopa 25/100 Mg Tablet PO 1 tablet TID ANABELA Administration Cyanocobalamin 1,000 mcg 01/28/23 09:00 01/28/23 08:28 Cyanocobalamin Inj 1,000 Mcg/Ml Vial IM 1,000 mcg WEEKLY ANABELA Administration Sodium Chlor
[2023-01-31] MEDS: ACETAMINOPHEN 500 MG TABLET 1000 MG PO (14:26)
[2023-01-31] MEDS: polyethylene glycoL 3350 17 GM POWD.PACK PO (14:27)
--- NOTE | 2023-01-31 17:35 | PM.IMPN ---
Progress Note: A&P Assessment and Plan (1) Acute on chronic anemia: Code(s): D64.9 - Anemia, unspecified Status: Acute (2) Severe anemia: Code(s): D64.9 - Anemia, unspecified Status: Acute (3) B12 deficiency: Code(s): E53.8 - Deficiency of other specified B group vitamins Status: Acute (4) Peripheral artery disease: Code(s): I73.9 - Peripheral vascular disease, unspecified Status: Acute (5) Elevated troponin: Code(s): R77.8 - Other specified abnormalities of plasma proteins Status: Acute (6) Chest pain: Code(s): R07.9 - Chest pain, unspecified Status: Acute (7) Claudication: Code(s): I73.9 - Peripheral vascular disease, unspecified Status: Acute (8) Acute kidney injury superimposed on chronic kidney disease: Code(s): N17.9 - Acute kidney failure, unspecified; N18.9 - Chronic kidney disease, unspecified Status: Acute Plan 01/31/2023: 82-year-old female with coronary artery disease peripheral artery disease cervical cancer proximal atrial fibrillation on anticoagulation with Eliquis peptic ulcer disease and chronic kidney disease stage 3 presented with chest pain and weakness. She has had a nerve improved ablation to her low back done at [facility] 5 days ago. Her low back pain has improved. However she fell persistently weak and fatigued with substernal chest pain that got worse with activity. Her lab work evaluation in the ED demonstrated profound anemia with hemoglobin of 4.5. She did report some black stool couple weeks ago. Rectal exam in the ER was positive for occult blood. Also has GERD symptoms on and off. Eliquis placed on hold. Received 2 unit of PRBC hemoglobin trended up and fairly stable. Continue to monitor H& H. GI consulted. EGD and colonoscopy performed 01/29/2023. VELASQUEZ on CKD stage 3 creatinine bumped up to 1.7.. Recent CTA performed on 01/28/2023 with extensive atherosclerotic change.. EGD 01/29/2023: Pyloric stenosis mild with minimal localized inflammation no signs recent bleeding biopsies taken. Colonoscopy 01/29/2023: Colon polyps and diverticulosis luminal colonic blood in noted. Hold Eliquis small-bowel follow-through with contrast reaching large bowel at 3-1/2 elda 7 mm IV L diverticulum. Nuclear medicine GI bleeding study if clinically warranted. H&H down to 6.8. Continues to decline. Will transfuse 1 unit of PRBC. Since no bowel movement suspect this is just lab lag. Will continue to monitor for any further signs of bleeding. Outpatient capsule study planned. Will continue to monitor for now. If further episode of bleeding will do nuclear test. History of cervical cancer underwent treatment. Cardiomyopathy peripheral vascular disease consideration of Plavix rather than aspirin due to peptic ulcer disease process. Awaiting stability Subjective Date/time seen: 01/31/23 17:35 Interval history: 82-year-old female with a past medical history of coronary artery disease, peripheral artery disease, cervical cancer, paroxysmal atrial fibrillation on anticoagulation Eliquis, peptic ulcer disease and chronic kidney disease stage 3 among other comorbidities who presented to the ER with chest pain and weakness.? The patient reports that she had just had a nerve ablation to her low back at [facility] 5 days ago.? She reports her low back pain has improved.? However despite that she has been feeling persistently weak and fatigued.? She noticed that she is having substernal chest pain that is worse with activity but is occurring when she is at rest.? She also reports pain in her midback as well.? She does have a known history of peripheral artery disease and has some history of claudication.? She did prior femoral stent.? She states that she used to occasionally gets claudication symptoms but now is getting claudication symptoms after only 4 5 steps.? Her has noted that she has had more
[2023-01-31] MEDS: ATORVASTATIN 40 MG TABLET 80 MG PO (20:07)
[2023-02-01 04:53] LABS: Hematocrit 27.3 % (37.0-47.0); Hemoglobin 8.5 g/dL (12.0-15.0); Mean Corpuscular HGB Conc 31.1 g/dl (32-36); Mean Corpuscular Volume 96.5 fl (80-100); Mean Platelet Volume 8.7 fl (7.4-10.4); Platelet Count Result 154 k/mm3 (150-375); Red Blood Count 2.83 M/mm3 (4.2-5.4); Red Cell Distribution Width 18.2 % (11.5-14.5); White Blood Count 8.7 K/mm3 (4.5-10.0)
[2023-02-01 05:04] LABS: Alanine Aminotransferase 13 U/L (6-35); Albumin Level 3.1 g/dL (3.5-5.1); Alkaline Phosphatase 73 U/L (38-126); Anion Gap 3 mmol/L (8-16); Aspartate Amino Transferase 15 U/L (14-36); Bilirubin,Total 0.3 mg/dL (0.2-1.3); Blood Urea Nitrogen 35 mg/dL (7-17); Calcium 8.1 mg/dL (8.4-10.2); Carbon Dioxide 19 mmol/L (22-30); Chloride 113 mmol/L (98-107); Estimated CRCL calculation 23 ml/min; Estimated Glomerular Filt Rate 43; Glucose 106 mg/dL (65-110); Magnesium 2.4 mg/dL (1.6-2.3); Potassium 4.2 mmol/L (3.4-5.0); Sodium 135 mmol/L (137-145)
[2023-02-01] MEDS: SALINE LOCK FLUSH 10 ML IV PUSH (05:38)
[2023-02-01 07:56] VITALS: BP 151/69; PULSE 82; RESP 18; TEMP 36.4; O2SAT 99
[2023-02-01] MEDS: SODIUM BICARBONATE TAB 325 MG TABLET PO (09:06)
[2023-02-01] MEDS: CARBIDOPA/LEVODOPA 25/100 MG TABLET 1 TABLET PO (09:06)
[2023-02-01] MEDS: PANTOPRAZOLE SODIUM IV 40 MG VIAL IV PUSH (09:06)
[2023-02-01] MEDS: DOCUSATE SODIUM 100 MG CAPSULE PO (11:59)
[2023-02-01] MEDS: ACETAMINOPHEN 500 MG TABLET 1000 MG PO (11:59)
--- NOTE | 2023-02-01 12:54 | PM.DS ---
DS: Admitting Diagnosis Discharge Date 02/01/2023 Admitting Diagnosis Anemia DS: Discharge Diagnosis Discharge Diagnosis (1) Acute on chronic anemia: Code(s): D64.9 - Anemia, unspecified Status: Acute (2) Severe anemia: Code(s): D64.9 - Anemia, unspecified Status: Acute (3) B12 deficiency: Code(s): E53.8 - Deficiency of other specified B group vitamins Status: Acute (4) Peripheral artery disease: Code(s): I73.9 - Peripheral vascular disease, unspecified Status: Acute (5) Elevated troponin: Code(s): R77.8 - Other specified abnormalities of plasma proteins Status: Acute (6) Chest pain: Code(s): R07.9 - Chest pain, unspecified Status: Acute (7) Claudication: Code(s): I73.9 - Peripheral vascular disease, unspecified Status: Acute (8) Acute kidney injury superimposed on chronic kidney disease: Code(s): N17.9 - Acute kidney failure, unspecified; N18.9 - Chronic kidney disease, unspecified Status: Acute DS: Summary Hospital Course Hospital Course: 82-year-old female with coronary artery disease peripheral artery disease cervical cancer paroxysmal atrial fibrillation on anticoagulation with Eliquis peptic ulcer disease and chronic kidney disease stage 3 presented with chest pain and weakness.? She has had a nerve improved ablation to her low back done at [facility] 5 days ago.? Her low back pain has improved.? However she fell persistently weak and fatigued with substernal chest pain that got worse with activity.? Her lab work evaluation in the ED demonstrated profound anemia with hemoglobin of 4.5.? She did report some black stool couple weeks ago.? Rectal exam in the ER was positive for occult blood.? Also has GERD symptoms on and off.? Eliquis placed on hold.? she only had one episode of afib with no further recurrence. with cardiology consultation, eliquis will be discontinued permanently. she Received 2 unit of PRBC hemoglobin trended up and fairly stable.? Continue to monitor H& H.? GI consulted.? EGD and colonoscopy performed 01/29/2023.? VELASQUEZ on CKD stage 3 creatinine bumped up to 1.7. and stabilized, likely due to bleeding.? Recent CTA performed on 01/28/2023 with extensive atherosclerotic change..? EGD 01/29/2023:? Pyloric stenosis mild with minimal localized inflammation no signs recent bleeding biopsies taken.? Colonoscopy 01/29/2023: Colon polyps and diverticulosis luminal colonic blood in noted.? Hold Eliquis small-bowel follow-through with contrast reaching large bowel at 3-1/2 elda 7 mm IV L diverticulum.? Nuclear medicine GI bleeding study if clinically warranted.? H&H down to 6.8 likely from the lab lag with no obvious source of bleeding. she is planned to have capsule study as op basis. History of cervical cancer underwent treatment.? Cardiomyopathy peripheral vascular disease consideration of Plavix rather than aspirin due to peptic ulcer disease process. egd without any severe peptic ulcer disease or gastritis, will resume aspirin 81 mg daily. fu labs in few days and fu with pcp. Time Spent with Patient Time attestation: Total time spent providing and/or coordinating discharge services:40 mins Exam Narrative: Patient is comfortable HEENT: eyes are clear and none icteric LUNGS: Normal respiratory effort ABD0: Not distended Lower extremities: no edema Neuro: grossly intact. DS: Data Data Completed and Pending Completed studies during hospitalization: Pending at discharge 01/29/23 11:12 Surgical [PTH] Routine Surgical [PTH] Routine Labs on day of discharge: Labs from last 24 hours 02/01/23 01/31/23 04:36 07:57 WBC 8.7 RBC 2.83 L Hgb 8.5 L Hct 27.3 L MCV 96.5 MCH 30.0 MCHC 31.1 L RDW 18.2 H Plt Count 154 MPV 8.7 Sodium 135 L Potassium 4.2 Chloride 113 H Carbon Dioxide 19 L Anion Gap 3 L BUN 35 H Creatinine 1.20 H Estim Creat Clear Calc
== END 2023-02-01 13:27 | disposition home or self-care (01) | DRG 377 ==
LOC: ANHED 21:29 → ANHIMU 01-28 01:52
PROVIDERS: Family Medicine; Internal Medicine Gastroenterology; Admitting Provider Internal Medicine; Emergency Provider General Practice; PCP Family Medicine; Visit Provider Internal Medicine
PROC: 0DJ08ZZ Inspection of Upper Intestinal Tract, Via Natural or Artificial Opening Endoscopic (ICD-10-PCS; CPT 43235; principal; 2023-01-29 11:15)
DX: K92.2 Gastrointestinal hemorrhage, unspecified (principal); I21.A1 Myocardial infarction type 2; G61.0 Guillain-Barre syndrome; N17.9 Acute kidney failure, unspecified; K31.1 Adult hypertrophic pyloric stenosis; I25.10 Atherosclerotic heart disease of native coronary artery without angina pectoris; I73.9 Peripheral vascular disease, unspecified; I48.0 Paroxysmal atrial fibrillation; Z79.01 Long term (current) use of anticoagulants; Z95.820 Peripheral vascular angioplasty status with implants and grafts; C53.9 Malignant neoplasm of cervix uteri, unspecified; K92.1 Melena; K63.5 Polyp of colon; K21.9 Gastro-esophageal reflux disease without esophagitis; K59.09 Other constipation; D63.0 Anemia in neoplastic disease; E78.5 Hyperlipidemia, unspecified; G20 Parkinson's disease; I12.9 Hypertensive chronic kidney disease with stage 1 through stage 4 chronic kidney disease, or unspecified chronic kidney disease; N18.31 Chronic kidney disease, stage 3a; Z86.711 Personal history of pulmonary embolism; Z86.73 Personal history of transient ischemic attack (TIA), and cerebral infarction without residual deficits; Z87.891 Personal history of nicotine dependence; Z85.828 Personal history of other malignant neoplasm of skin; E55.9 Vitamin D deficiency, unspecified; E53.8 Deficiency of other specified B group vitamins; D50.9 Iron deficiency anemia, unspecified; Z95.828 Presence of other vascular implants and grafts; Z92.21 Personal history of antineoplastic chemotherapy; Z85.42 Personal history of malignant neoplasm of other parts of uterus; Z90.49 Acquired absence of other specified parts of digestive tract; Z90.89 Acquired absence of other organs; Z95.5 Presence of coronary angioplasty implant and graft; Z98.41 Cataract extraction status, right eye; Z98.42 Cataract extraction status, left eye; Z96.1 Presence of intraocular lens
CPT/HCPCS: 36415; 36430; 36569; 71046; 71275; 74177; 74250; 80048; 80053; 81001; 82607; 82746; 83540; 83550; 83690; 83735; 84100; 84484; 85014; 85018; 85025; 85027; 85610; 85730; 86850; 86900; 86901; 86923; 87086; 88305; 93005; 96361; 96365; 96366; 96372; 99285; A9270; C1751; C9113; G0378; J1756; J2371; J2704; J3420; J7030; J7050; J7120; P9016; Q9967

== ENCOUNTER 2023-02-05 05:14 | Outpatient (CLI) | payer OTHER, SELFPAY ==
[2023-02-03 11:27] VITALS: BMI 20.5
--- NOTE | 2023-02-03 11:58 | PC.NURSE ---
spoke with patient and spouse on phone regarding upcoming capsule procedure. All information and questions were completed at this time. Emailed instructions to patient and will confirm that they have received this information.
--- NOTE | 2023-02-03 12:05 | PC.NURSE ---
spoke with patient and spouse regarding capsule procedure and PET scan. Patient states she wishes to continue with capsule procedure on 02/05/23 and will reschedule PET scan for at least 30 days following capsule procedure.
--- NOTE | 2023-02-04 16:46 | PC.NURSE ---
PTS. SPOUSE KEI CALLED CONCERNED ABOUT PTS CBC AND WANTING TO SEE IF DR. LEVINE WOULD ORDER ANOTHER ONE IN THE AM WHEN SHE COMES IN FOR PROC. STATES PT IS HAVING A LITTLE INCREASED LIGHT HEADEDNESS UPON STANDING TODAY COMPARED TO YESTERDAY, I DID HAVE HIM DO A BP WITH HER STANDING AND SITTING AND SHE DOES APPEAR TO BE MILDLY ORTHOSTATIC. SHE STATES THE LIGHT HEADEDNESS DOES SUBSIDE RELATIVELY FAST AFTER SITTING DOWN. I ENCOURAGED THEM TO GO TO THE ER OR ALL 911 IF IT INCREASES. I DID UPDATE DR. LEVINE AND CBC IS ORDERED FOR IN AM AND PT DOES NOT HAVE TO DO MIRALAX PREP TONIGHT.- I WENT OVER THIS WITH THE PTS SPOUSE.
[2023-02-05] VITALS (7 sets, daily range): BP systolic 85–110; BP diastolic 43–80; PULSE 71–80; RESP 18–20; TEMP 36.3–37.1; O2SAT 99–100
[2023-02-05 07:31] LABS: Hematocrit 24.3 % (37.0-47.0); Hemoglobin 7.1 g/dL (12.0-15.0); Mean Corpuscular HGB Conc 29.2 g/dl (32-36); Mean Corpuscular Volume 106.1 fl (80-100); Mean Platelet Volume 9.3 fl (7.4-10.4); Platelet Count Result 181 k/mm3 (150-375); Red Blood Count 2.29 M/mm3 (4.2-5.4); Red Cell Distribution Width 18.9 % (11.5-14.5); White Blood Count 9.9 K/mm3 (4.5-10.0)
--- NOTE | 2023-02-05 10:00 | SUR.PREOP ---
0726 Tatum RN notified of patient's H and H results. She relayed results to Dr. Aquino and he mentioned he wanted the patient to have a blood transfusion of one unit. Tatum called Miky for him to obtain IV access due to the patient's being a difficult IV stick. 0755 Miky Pond RN here with the ultrasound to look for an IV. 0820 Miky is unable to gain IV access or midline with Ultrasound. 0855 Grease Refining Supervisor called on how to proceed with patient. Discussion had on what path to take as far possible getting her admitted for IV access for blood transfusion. 08 Spoke with patient and spouse about the need of a more permanent IV access solution. Encouraged patient and spouse to talk with their primary care provider about a referral to see a general surgeon about getting talking with them about a possible port- a - cath. [address] Dodge anesthesiologist to see if he would take a look for IV access. [id number] Dr. Dodge placed 20 gauge IV into patient's left lower extremity.
--- NOTE | 2023-02-05 10:12 | SUR.PREOP ---
0945 type and screen sent to lab
[2023-02-05] MEDS: SODIUM CHLORIDE 0.9% IV 500 ML 50 ML IV CONT (10:50)
--- NOTE | 2023-02-05 12:14 | SUR.PREOP ---
1100 blood transfusion started 1215 b/p reading low, several attempts tried by switching arms and cuffs, patient denies any dizziness or lightheadedness, palpitations. patient resting comfortably in bed with spouse at bedside.
--- NOTE | 2023-02-05 14:42 | SUR.PREOP ---
Addendum entered by DAVID Martin 02/05/23 15:15: patient discharged at 1513. Original Note: 1500 Given's recorder equipment removed off of the patient. Discharge instructions given to the patient and spouse. Patient and spouse voiced understanding. Patient discharged via wheelchair. took pt's walker with him when he left to get the vehicle.
--- NOTE | 2023-02-06 10:04 | SUR.PREOP ---
02/06/23 1004 called to follow up call with spouse and patient this morning. Spoke with spouse Avel he says Mariyln is doing well this morning. Discussed safety with activities with her spouse with the risk of her falling and reviewed signs and symptoms of anemia and the need to come to the ER if those symptoms appeared over the weekend. Reviewed the orders for follow up tests with the spouse. He voiced understanding.
== END 2023-02-05 15:13 | disposition home or self-care (01) ==
PROVIDERS: PCP Family Medicine; Visit Provider Internal Medicine Gastroenterology
PROC: 0DJ07ZZ Inspection of Upper Intestinal Tract, Via Natural or Artificial Opening (ICD-10-PCS; CPT 91110; principal; 2023-02-05 07:00)
DX: D64.9 Anemia, unspecified (principal); K31.1 Adult hypertrophic pyloric stenosis
CPT/HCPCS: 36415; 36430; 85027; 86850; 86900; 86901; 86923; 91110; J7040; P9016

== ENCOUNTER 2023-02-09 09:29 | Observation (INO) | payer OTHER, SELFPAY ==
[2023-02-09] VITALS (81 sets, daily range): BP systolic 72–139; BP diastolic 38–108; PULSE 72–87; RESP 13–24; TEMP 36.4–36.9; O2SAT 95–100; BMI 20.3
--- NOTE | ~2023-02-09 | XR_ITS ---
EXAMINATION: XR chest 2V DATE: 02/09/2023 10:36 INDICATION: Chest pain. TECHNIQUE: Frontal and lateral views of the chest were obtained. COMPARISON: Chest 2 views 01/27/2023, chest CT 01/27/23 FINDINGS: There is no pneumonia, pleural effusion, or pneumothorax. The heart size is normal. IMPRESSION: 1. No acute cardiopulmonary disease. Reviewed, dictated and finalized at location A.
--- NOTE | 2023-02-09 09:55 | ECG_ITS ---
Measurements Intervals [place] Rate: 75 P: 21 AK: 156 QRS: -14 QRSD: 100 T: -15 QT: 366 QTc: 409 Interpretive Statements SINUS RHYTHM VOLTAGE CRITERIA FOR LVH [MEETS CRITERIA IN ONE OF: R(aVL), S(V1), R(V5), R(V5/V6)+S(V1)] NONSPECIFIC ST & T-WAVE ABNORMALITY ABNORMAL ECG COMPARED TO ECG 01/27/2023 21:18:17 NO SIGNIFICANT CHANGE Electronically Signed On 02-09-2023 11:51:55 CDT by Andrea Hall M.D.
--- NOTE | 2023-02-09 09:59 | ED.GENADULT ---
HPI - General Adult General Chief complaint: Recheck/Abnormal Lab/Rx Stated complaint: low blood counts Time Seen by Provider: 02/09/23 09:41 Source: patient Limitations: no limitations History of Present Illness HPI narrative: Patient is a 82-year-old female presents to the emergency department complaining of generalized weakness, chest pain, shortness of breath. Patient notes has been feeling this way progressively over the past couple days, notes that the chest pain is intermittent, substernal, nonradiating, last episode of the pain was this morning around approximately 10 AM, has not noticed any component of exertion, has not tried anything for the pain. Patient notes that she is anemic and has required for blood transfusions in the past couple weeks and is currently undergoing outpatient evaluation with gastroenterology and currently has a capsule going through her GI tract in addition she also has follow-up coming up with hematology. Patient denies blood loss from any orifice. Patient denies nausea, vomiting, diarrhea, melena, fever, hematochezia, numbness, focal weakness, rash, dysuria, hematuria, urinary frequency, urinary urgency, recent injuries, recent illness, vaginal bleeding, hematemesis, hemoptysis, unilateral lower extremity swelling. Patient admits to shortness of breath whenever she is having the chest pain and sometimes worse when she is lying flat. Patient has she been taking her medication as prescribed without recent changes. Patient admits to a history of being on a Epogen. Patient admits to history of chemoradiation in the remote past. Patient admits to history of blood clots for which she was on anticoagulation but was taken off of it when she began developing the anemia. Related Data Home Medications Medication Instructions Recorded Confirmed aspirin 81 mg tablet,delayed 81 mg PO DAILY 11/19/22 02/09/23 release (Vianey Low Dose Aspirin) carbidopa 25 mg-levodopa 100 mg 1 tablet PO TID 01/28/23 02/09/23 tablet Allergies Allergy/AdvReac Type Severity Reaction Status Date / Time latex Allergy Mild rash Verified 02/09/23 11:14 aspirin AdvReac Mild stomach Verified 02/09/23 11:14 pain PMFSH Past Medical History Medical History (Updated 02/09/23 @ 14:45 by Sadiq Baig DO) Cardiomyopathy Around 1999 the patient had a cardiomyopathy with EF down to 24%, due to an autoimmune problem, recovered. 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 Peptic ulcer Pulmonary embolism Pyloric stenosis in adult Secondary renal hyperparathyroidism Skin cancer Stage 3 chronic kidney disease Uterine cancer Vitamin D deficiency Surgical History Surgical History (Updated 01/28/23 @ 07:46 by Alejandra Foley DO) History of appendectomy History of benign breast biopsy History of hysteroscopy (01/11/22) hscope D&C History of partial thyroidectomy History of tonsillectomy Internal carotid artery stent present Right 08/2022 complicated by an MS and TIA Status post cataract extraction of both eyes with insertion of intraocular lens Family History Family History (Updated 01/28/23 @ 07:32 by Alejandra Foley DO) Father Heart disease Mother Breast cancer Social History Social History (Updated 01/28/23 @ 07:32 by Alejandra Foley DO) Social History: Her and her have been for 54 years. They have 1 son. 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 She is a former smoker and s
[2023-02-09 10:33] LABS: Immature Reticulocyte Fraction 36.6 % (3.0-15.9); Reticulocyte Hemoglobin Conten 28.2 pg (28.2-35.7); Reticulocyte Percent 5.91 % (0.7-4.3); Reticulocytes Absolute 0.13 M/mm3 (0.02-0.1)
[2023-02-09 10:34] LABS: Lactate Dehydrogenase 186 U/L (120-246)
[2023-02-09] MEDS: LACTATED RINGERS 500 ML 999 ML IV CONT (10:42)
--- NOTE | 2023-02-09 11:01 | PC.NURSE ---
Dr. Baig informed unable to obtain blood for lab orders.
[2023-02-09 12:23] LABS: Basophils Percent Auto 0.3 % (0.2-1.2); Eosinophils Absolute Auto 0.1 K/mm3 (0-0.3); Eosinophils Percent Auto 1.3 % (0-4.4); Immature Granulocyte Absolute 0.12 K/mm3 (0.00-0.031); Immature Granulocyte Percent A 1.7 % (0-0.5); Lymphocytes Absolute Auto 0.57 K/mm3 (0.9-3.2); Lymphocytes Percent Auto 8.1 % (18.3-44.2); Mean Corpuscular Hemoglobin 29.5 pg (26-34); Mean Corpuscular Volume 101.4 fl (80-100); Mean Platelet Volume 9.2 fl (7.4-10.4); Monocytes Absolute Auto 0.5 K/mm3 (0.1-0.6); Monocytes Percent Auto 7.1 % (2.6-8.5); Neutrophils Absolute Auto 5.7 K/mm3 (1.3-6.7); Neutrophils Percent Auto 81.5 % (45.5-73.1); Nucleated Red Blood Cells Perc 0.3 % (0.0-0.2); Platelet Count Result 170 k/mm3 (150-375); Red Blood Count 2.07 M/mm3 (4.2-5.4); Red Cell Distribution Width 24.7 % (11.5-14.5)
[2023-02-09 12:24] LABS: INR 1.1; Prothrombin Time 14.4 Seconds (11.1-14.7)
[2023-02-09 12:25] LABS: Partial Thromboplastin Time 21.2 SECONDS (22.3-36.8)
[2023-02-09 12:36] LABS: Hemoglobin 6.1 g/dL (12.0-15.0)
[2023-02-09 12:52] LABS: Anisocytosis 3+ (NORMAL); Platelet Estimate Adequate (Adequate); Schistocytes None Seen (NORMAL)
[2023-02-09 13:38] LABS: Troponin I 0.403 ng/mL (0.000-0.034)
[2023-02-09 15:08] LABS: Alanine Aminotransferase 13 U/L (6-35); Albumin Level 3.1 g/dL (3.5-5.1); Alkaline Phosphatase 82 U/L (38-126); Anion Gap 9 mmol/L (8-16); Aspartate Amino Transferase 22 U/L (14-36); Bilirubin,Total 0.2 mg/dL (0.2-1.3); Blood Urea Nitrogen 51 mg/dL (7-17); Calcium 8.2 mg/dL (8.4-10.2); Carbon Dioxide 15 mmol/L (22-30); Chloride 116 mmol/L (98-107); Estimated CRCL calculation 18 ml/min; Estimated Glomerular Filt Rate 33; Glucose 94 mg/dL (65-110); Lipase 509 U/L (23-300); Potassium 4.3 mmol/L (3.4-5.0); Sodium 140 mmol/L (137-145)
[2023-02-09 15:10] LABS: Appearance Urine Clear (Clear); Bacteria Urine None Seen /hpf; Bilirubin Urine Negative (Negative); Blood Urine Negative (Negative); Color Urine Yellow (Yellow); Glucose Urine UA Negative (Negative); Ketones Urine Negative (Negative); Leukocyte Esterase Ur Trace LEU/UL (Negative); Nitrate Urine Negative (Negative); Non Pathogenic Casts 0-2; Protein Urine Trace mg/dL (Negative); RBC Urine 0-2 /hpf (0-2); Specific Grav Ur 1.015 (1.001-1.035); Squamous Epithelial Cell Urine None seen /hpf (Few); Urobilinogen Urine 0.2 mg/dL (<2.0); WBC Urine 0-5 /hpf; pH Urine 5.5 (5.0-9.0)
[2023-02-09 15:15] LABS: Add Urine Microscopic? YES
[2023-02-09] MEDS: SODIUM CHLORIDE 0.9% IV 250 ML 30 ML IV CONT (15:15)
[2023-02-09 15:24] LABS: NT Pro B Type Natriuretic Pept 1880 pg/mL (19.9-100); Troponin I 0.374 ng/mL (0.000-0.034)
[2023-02-09] MEDS: TUBING, BLOOD PLUM PUMP TUBING 1 EACH XX (15:30)
[2023-02-09] MEDS: TUBING, BLOOD SET 1 EACH XX ×2 (15:30→19:16)
--- NOTE | 2023-02-09 18:28 | PC.NURSE ---
Transfusion completed, pt tolerated well
--- NOTE | 2023-02-09 19:17 | PC.NURSE ---
This Rn took over patient care. Pt report was given to this RN by WERO Munson.
--- NOTE | 2023-02-09 20:57 | PM.IMHP ---
H&P: HPI History of Present Illness Date/Time: 02/09/23 20:57 Chief Complaint: Low blood count Narrative: This is an 82-year-old female patient who had does have a history of anemia. The patient is yet to see digital content coordinator oncologist. The patient has had a history of having female cancer that she reports as cervical cancer. The patient has had chemotherapy and radiation and has had low counts every since then. However the patient has been complaining of generalized weakness chest pain and shortness of breath over the last couple days. She stated that the chest pain was intermittent substernal nonradiating and her last episode was around 10:00 a.m. this morning. The patient has been requiring blood transfusions over the last couple weeks and is currently undergoing outpatient evaluation gastroenterology. She denies any blood in her stool or in her urine. The patient stated that she has been on Epogen. The patient has had a history of having blood clots in the past and had been on anticoagulation but has been taken off since she developed this anemia. Her H&H was 6.1 and 21.1 and is now up to 7.827.1. The patient was typed and cross-matched for 1 unit of packed red blood cells and was transfused. The patient has macrocytic anemia her MCV was 101.4. The patient stated she has received B12 injections in the past. Her absolute reticular count is 0.13. The patient recently had an anemia workup and her iron was found to be low patient's troponin 0.374 and 0.403. Patient's troponins chronically elevated. However she previously had a troponin on 01/28/2023 of 7.700. Her BNP is 1880. The patient is being admitted to observation status on the date of service of 02/09/2023 Review of Systems Review of Systems: All systems reviewed & are unremarkable except as noted in HPI and below Constitutional: Constitutional: Reports as per HPI and Reports no additional constitutional complaints Eyes: Eyes: Reports as per HPI and Reports no additional eye complaints ENT: Reports system reviewed and no additional complaints, except as documented and Reports Normal hearing present Cardiovascular: Cardiovascular: Reports no additional cardiovascular complaints Respiratory: Respiratory: Reports no additional respiratory complaints and Reports no additional respiratory complaints Gastrointestinal: Gastrointestinal: Reports as per HPI and Reports no additional gastrointestinal complaints Musculoskeletal: Musculoskeletal: Reports no additional musculoskeletal complaints Integumentary/Breasts: Skin/Breast: Reports system reviewed and no additional complaints, except as docu and Reports as per HPI Neurologic: Reports system reviewed and no additional complaints, except as documented, Reports as per HPI and Reports Normal hearing present Psychiatric: Psychiatric: Reports no additional psychiatric complaints and Reports as per HPI Endocrine: Endocrine: Reports no additional endocrine complaints Hematologic/Lymphatic: Hematologic/Lymphatic: Reports no additional hematologic/lymphatic complaints Allergic/Immunologic: Allergic/Immunologic: Reports no additional allergic/immunologic complaints PMFSH Past Medical History Medical History Cardiomyopathy Around 1999 the patient had a cardiomyopathy with EF down to 24%, due to an autoimmune problem, recovered. 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
[2023-02-09 21:13] LABS: Hematocrit 27.1 % (37.0-47.0); Hemoglobin 7.8 g/dL (12.0-15.0)
--- NOTE | 2023-02-09 21:56 | ADMGEN ---
This patient, Marilyn Stephenson, was admitted to IMU Room 205-02 on 02/09/23 at 2133. Patient/family oriented to hospital policies and general routines including ID bracelet, bed and alarms, visiting hours, pain management, procedures, bathroom and other care routines, personal items, smoking policy, room service/diet, and visiting hours. Information on how to activate the Rapid Response Team has been discussed. Patient/Family are encouraged to report perceived risks to care and to ask questions if they do not understand what they are told or what they should do.
[2023-02-10] VITALS (11 sets, daily range): BP systolic 98–133; BP diastolic 49–73; PULSE 68–89; RESP 12–18; TEMP 36.1–36.4; O2SAT 97–100
[2023-02-10] MEDS: ACETAMINOPHEN 500 MG TABLET 1000 MG PO (01:01)
[2023-02-10 03:19] LABS: Hematocrit 25.8 % (37.0-47.0); Hemoglobin 7.4 g/dL (12.0-15.0)
[2023-02-10 03:39] LABS: Alanine Aminotransferase 12 U/L (6-35); Albumin Level 2.9 g/dL (3.5-5.1); Alkaline Phosphatase 54 U/L (38-126); Anion Gap 4 mmol/L (8-16); Aspartate Amino Transferase 18 U/L (14-36); Bilirubin,Total 0.4 mg/dL (0.2-1.3); Blood Urea Nitrogen 38 mg/dL (7-17); Carbon Dioxide 15 mmol/L (22-30); Chloride 117 mmol/L (98-107); Estimated CRCL calculation 23 ml/min; Estimated Glomerular Filt Rate 43; Glucose 95 mg/dL (65-110); Potassium 4.3 mmol/L (3.4-5.0); Sodium 136 mmol/L (137-145)
[2023-02-10] MEDS: CARBIDOPA/LEVODOPA 25/100 MG TABLET 1 TABLET PO ×2 (05:25→11:35)
[2023-02-10 08:31] LABS: Hematocrit 24.3 % (37.0-47.0); Hemoglobin 7.2 g/dL (12.0-15.0)
--- NOTE | 2023-02-10 11:12 | PM.DS ---
DS: Admitting Diagnosis Discharge Date 02/10/2023 Admitting Diagnosis Symptomatic anemia DS: Discharge Diagnosis Discharge Diagnosis (1) Symptomatic anemia: Code(s): D64.9 - Anemia, unspecified Status: Acute (2) Parkinson disease: Code(s): G20 - Parkinson's disease Status: Acute (3) Peripheral artery disease: Code(s): I73.9 - Peripheral vascular disease, unspecified Status: Acute (4) Cervical cancer: Code(s): C53.9 - Malignant neoplasm of cervix uteri, unspecified Status: Acute DS: Summary Hospital Course Hospital Course: This is an 82-year-old female patient who had does have a history of anemia.? The patient has had a history of cervical cancer.? The patient has had chemotherapy and radiation and has had low counts ever since then.? However the patient has been complaining of generalized weakness chest pain and shortness of breath over the last couple days.? The patient has been requiring blood transfusions over the last couple weeks and is currently undergoing outpatient evaluation gastroenterology.? She denies any blood in her stool or in her urine.? The patient stated that she has been on Epogen.? The patient has had a history of having blood clots in the past and had been on anticoagulation but has been taken off since she developed this anemia.? The patient was typed and cross-matched for 1 unit of packed red blood cells and was transfused.? Hemoglobin improved to 7.2. Will transfuse 1 more unit of blood. Patient has been was suggested to follow-up with her oncologist at [facility] for further evaluation. Patient is being discharged home Time Spent with Patient Time attestation: Total time spent providing and/or coordinating discharge services: DS: Data Data Completed and Pending Labs on day of discharge: Labs from last 24 hours 02/10/23 02/10/23 02/09/23 08:26 03:11 21:07 WBC RBC Hgb 7.2 L 7.4 L 7.8 L Hct 24.3 L 25.8 L 27.1 L MCV MCH MCHC RDW Plt Count MPV Immature Gran % (Auto) Neut % (Auto) Lymph % (Auto) Tyler % (Auto) Eos % (Auto) Baso % (Auto) Lymph # (Auto) Tyler # (Auto) Eos # (Auto) Baso # (Auto) Abs Immat Gran (auto) Absolute Neuts (auto) Absolute Nucleated RBC Nucleated RBC % Platelet Estimate Anisocytosis Schistocytes PT INR APTT Sodium 136 L Potassium 4.3 Chloride 117 H Carbon Dioxide 15 L Anion Gap 4 L BUN 38 H D Creatinine 1.20 H Estim Creat Clear Calc 23 Estimated GFR 43 L Glucose 95 Calcium 8.0 L Magnesium 2.0 Total Bilirubin 0.4 AST 18 ALT 12 Alkaline Phosphatase 54 Troponin I NT-Pro-B Natriuret Pep Total Protein 5.0 L Albumin 2.9 L Lipase TSH (Reflex) 2.400 Urine Color Urine Appearance Urine pH Ur Specific [place] Urine Protein Urine Glucose (UA) Urine Ketones Ur Blood (Man) Urine Nitrate Urine Bilirubin Urine Urobilinogen Leukocyte Esterase Rfl Urine RBC Urine WBC Ur Squamous Epith Cells Urine Bacteria Urine Casts Blood Type Antibody Screen Crossmatch 02/09/23 02/09/23 02/09/23 13:50 13:03 12:04 WBC 7.0 RBC 2.07 L Hgb 6.1 L* Hct 21.0 L MCV 101.4 H MCH 29.5 MCHC 29.0 L RDW 24.7 H Plt Count 170 MPV 9.2 Immature Gran % (Auto) 1.7 H Neut % (Auto) 81.5 H Lymph % (Auto) 8.1 L Tyler % (Auto) 7.1 Eos % (Auto) 1.3 Baso % (Auto) 0.3 Lymph # (Auto) 0.57 L Tyler # (Auto) 0.5 Eos # (Auto) 0.1 Baso # (Auto) 0.0 Abs Immat Gran (auto) 0.12 H Absolute Neuts (auto) 5.7 Absolute Nucleated RBC 0.0 Nucleated RBC % 0.3 H Platelet Estimate Adequate Anisocytosis 3+ Schistocytes None seen PT 14.4 INR 1.1 APTT 21.2 L Sodium Potassium Chloride Carbon Dioxide Anion Gap BUN Creatinine E
[2023-02-10] MEDS: TUBING, BLOOD PLUM PUMP TUBING 1 EACH XX (11:36)
[2023-02-10] MEDS: SODIUM CHLORIDE 0.9% IV 250 ML 30 ML IV CONT (11:36)
[2023-02-10] MEDS: ASPIRIN 81 MG ENTERIC TABLET PO (11:36)
== END 2023-02-10 15:15 | disposition home or self-care (01) ==
LOC: ANHED 14:45 → ANHIMU 15:30
PROVIDERS: Nurse Practitioner; Admitting Provider Hospitalist; Emergency Provider Student in an Organized Health Care Education/Training Program; PCP Family Medicine; Visit Provider Hospitalist
DX: D64.9 Anemia, unspecified (principal); G20 Parkinson's disease; I73.9 Peripheral vascular disease, unspecified; C53.9 Malignant neoplasm of cervix uteri, unspecified; G61.0 Guillain-Barre syndrome; I12.9 Hypertensive chronic kidney disease with stage 1 through stage 4 chronic kidney disease, or unspecified chronic kidney disease; N18.31 Chronic kidney disease, stage 3a; R77.8 Other specified abnormalities of plasma proteins; I25.2 Old myocardial infarction; I48.0 Paroxysmal atrial fibrillation; I47.1 Supraventricular tachycardia; R94.31 Abnormal electrocardiogram [ECG] [EKG]; N25.81 Secondary hyperparathyroidism of renal origin; E78.5 Hyperlipidemia, unspecified; E55.9 Vitamin D deficiency, unspecified; R79.89 Other specified abnormal findings of blood chemistry; R79.0 Abnormal level of blood mineral; F10.90 Alcohol use, unspecified, uncomplicated; Z79.82 Long term (current) use of aspirin; Z79.899 Other long term (current) drug therapy; Z87.891 Personal history of nicotine dependence; Z86.711 Personal history of pulmonary embolism; Z92.21 Personal history of antineoplastic chemotherapy; Z92.3 Personal history of irradiation; Z86.73 Personal history of transient ischemic attack (TIA), and cerebral infarction without residual deficits
CPT/HCPCS: 36415; 36430; 71046; 80053; 81001; 83615; 83690; 83735; 83880; 84443; 84484; 85014; 85018; 85025; 85046; 85610; 85730; 86850; 86900; 86901; 86923; 93005; 96360; 96361; 99285; A9270; G0378; J7050; J7120; P9016

== ENCOUNTER 2023-02-12 17:13 | Inpatient (IN) | payer OTHER, SELFPAY ==
[2023-02-11 09:18] VITALS: BMI 20.2
--- NOTE | 2023-02-11 09:29 | PC.NURSE ---
Report to the Outpatient Waiting Room, entrance under the green pavilion located off [facility], at time 1030 on date 02/12/23. Planned Procedure Time: 1230. Time changes happen often and if your time is changed the preop area will call you the afternoon before. - You and your visitor will be asked to self-screen and do not enter if you have any COVID symptoms. - A mask is optional within the hospital at this time. Patients may have clear liquids (water, carbonated beverages, clear teas, apple juice) until 3 hours prior to surgery with a maximum of 20 ounces. - No food from midnight until time of surgery Take the following medications with a SIP of water the morning of surgery: CARBIDOPA-LEVODOPA DO NOT STOP ANY OF YOUR OTHER PRESCRIPTION MEDICATIONS PRIOR TO SURGERY ?EXCEPT THE FOLLOWING Medications to discontinue per physician: N/A Date to take last dose: N/A Please no make-up, nail welsh, hairspray, perfume, deodorant, or body powder the day of surgery. No jewelry (including any body piercings) or valuables the day of surgery, leave them at home. Please take a shower or bath the night before, or the morning of, surgery with an antibacterial soap. Wear comfortable, loose fitting clothing. - Jewelry must be removed prior to entering the operating room. Rings and piercings that are not removed may be cut off. - The hospital will not accept responsibility for valuables. - Please leave all valuables, including medications, at home the day of surgery. If you are going home after surgery, a licensed driver license agent must drive you home. - NO public transportation without another adult if you receive anesthesia. - We recommend that an adult stay with you for 24 hours following discharge. - We also recommend that you do not drive, make important decision, drink alcoholic beverages, or take any drugs that were not prescribed by your health care provider for at least 24 hours after your discharge time. Follow any additional instructions given to you from your surgeon. If you or anyone in your household have experienced Covid symptoms in the past week, please notify your surgeon or the nurse liaison at the phone number below for possible testing. Telephone instructions given to PT & SPOUSE and asked if any additional questions and then verbalized understanding. Patient advised to call surgeon office or pre surgery nurse liaison [phone] if any additional questions.
[2023-02-12] VITALS (32 sets, daily range): BP systolic 49–161; BP diastolic 40–93; PULSE 78–109; RESP 12–100; TEMP 35.5–36.6; O2SAT 94–100
--- NOTE | ~2023-02-12 | XR_ITS ---
XR chest 1V portable 02/13/2023 13:47 Indication: Follow-up pneumothorax Procedure: AP portable chest Comparison: Comparison to multiple prior studies sequentially, with oldest reviewed study dated 02/09. Findings: There is a right apical chest tube. There is extensive vascular calcification of the subcla vian vessels. No pneumothorax identified. Left basilar airspace disease. Right perihilar airspace dis ease. Possible small effusions. No acute osseous abnormality. Impression: 1: Right perihilar and left basilar airspace disease which may represent atelectasis or pneumonia. 2: No pneumothorax identified. Reviewed, dictated and finalized at location L. Impression: 1: Right perihilar and left basilar airspace disease which may represent atelec tasis or pneumonia. 2: No pneumothorax identified.
--- NOTE | ~2023-02-12 | XR_ITS ---
EXAMINATION: XR chest 1V portable DATE: 02/14/2023 05:43 INDICATION: Right pneumothorax. TECHNIQUE: A single frontal view of the chest was obtained. COMPARISON: Chest single view 02/13/2023 FINDINGS: There is mild atelectasis in the lower lung zones. No pleural effusion or pneumothorax. The heart size is normal. There is a right subclavian central venous catheter with tip at superior cavoa trial junction. A right-sided chest tube is noted. IMPRESSION: 1. No pneumothorax. Right-sided chest tube in expected position. 2. Mild atelectasis in the lower lung zones. Reviewed, dictated and finalized at location A.
--- NOTE | ~2023-02-12 | XR_ITS ---
EXAMINATION: XR fl guide central line place DATE: 02/12/2023 13:16 INDICATION: Port placement. TECHNIQUE: A single intraoperative fluoroscopic view of the chest was obtained. I was not present. Fl uoroscopy exposure time was 1002 seconds. COMPARISON: Chest CT 01/27/2023 FINDINGS: A single view of the chest demonstrates no central line. IMPRESSION: 1. No visible central line. Reviewed, dictated and finalized at location A. IMPRESSION: 1. No visible central line.
--- NOTE | ~2023-02-12 | XR_ITS ---
EXAMINATION: XR fl guide central line place INDICATION: Port-A-Cath insertion TECHNIQUE: Fluoroscopy is provided for central line insertion. No fluoroscopic image was obtained. To jimi fluoroscopic time was 102.8 seconds. COMPARISON: None available FINDINGS: Total fluoroscopic time was 102.8 seconds. IMPRESSION: 1. Please refer to procedure note for full details. Reviewed, dictated and finalized at location A.
--- NOTE | ~2023-02-12 | XR_ITS ---
EXAMINATION: XR chest 1V portable DATE: 02/14/2023 11:07 INDICATION: Right pneumothorax. Chest tube to waterseal. TECHNIQUE: A single frontal view of the chest was obtained. COMPARISON: Chest view at 5:33 AM FINDINGS: There is mild atelectasis at the lung bases. There is a small right pleural effusion. There is a small right apical pneumothorax. A right-sided chest tube is noted. The heart size is normal. T here is a right subclavian central venous catheter with tip at superior cavoatrial junction. IMPRESSION: 1. Small right pneumothorax. Right-sided chest tube in expected position. 2. Worsened small right pleural effusion. 3. Mild atelectasis at the lung bases. Reviewed, dictated and finalized at location A.
--- NOTE | ~2023-02-12 | XR_ITS ---
EXAMINATION: XR chest 1V portable DATE: 02/13/2023 23:32 INDICATION: Shortness of breath. TECHNIQUE: A single frontal view of the chest was obtained. COMPARISON: Chest single view 02/13/2023 FINDINGS: There is mild atelectasis in the lower lung zones. No pleural effusion or pneumothorax. The heart size is normal. There is a right subclavian central venous catheter with tip at superior cavoa trial junction. A right-sided chest tube is noted. IMPRESSION: 1. No pneumothorax. Right-sided chest tube in expected position. 2. Mild atelectasis in the lower lung zones. Reviewed, dictated and finalized at location A.
--- NOTE | ~2023-02-12 | XR_ITS ---
XR chest port-a-cath/central 02/13/2023 16:11 Indication: Insertion of portacatheter Procedure: AP portable chest Comparison: Comparison to multiple prior studies sequentially, with oldest reviewed study dated 02/09. Findings: Interval placement of right subclavian terri catheter, tip in the right atrium. Right apica l chest tube position unchanged. There is a new small right apical pneumothorax. Stable cardiomediast inal silhouette. Left basilar airspace disease. Subtle right perihilar infiltrates. Impression: 1: New small right apical pneumothorax. Stable position to right chest tube. 2: Bilateral infiltrates, more focal in the left lung base, atelectasis versus pneumonia. Reviewed, dictated and finalized at location L. Impression: 1: New small right apical pneumothorax. Stable position to right chest tube. 2: Bilateral infiltrates, more focal in the left lung base, atelectasis versus pneumonia.
--- NOTE | ~2023-02-12 | XR_ITS ---
EXAMINATION: XR chest-chest tube insert/pos INDICATION: Chest tube insertion TECHNIQUE: Portable AP chest at 1434 hours COMPARISON: 1339 hours FINDINGS: A right-sided chest tube has been inserted. The previously described right pneumothorax is no longer evident. Airspace opacities of the right lung likely reflect atelectasis. No pleural effusi on is identified. The cardiomediastinal silhouette is normal. IMPRESSION: 1. Right-sided chest tube insertion. No pneumothorax identified. Reviewed, dictated and finalized at location A.
--- NOTE | ~2023-02-12 | XR_ITS ---
EXAMINATION: XR chest 1V portable DATE: 02/12/2023 13:43 INDICATION: Central line placement. TECHNIQUE: A single frontal view of the chest was obtained. COMPARISON: Chest 2 views 02/09/2023, chest CT 01/27/2023 FINDINGS: There is a moderate-sized right pneumothorax. No pneumonia or pleural effusion. The heart s ize is normal. There is a pill endoscope in the stomach. IMPRESSION: 1. Moderate-sized right pneumothorax. Reviewed, dictated and finalized at location A.
--- NOTE | ~2023-02-12 | CT_ITS ---
EXAMINATION:CT diagnostic chest wo con DATE: 02/14/2023 00:20 INDICATION: Hematoma around chest tube insertion site. TECHNIQUE: Computed tomography (CT) of the chest was performed without intravenous contrast. Automate d exposure control and iterative reconstruction technique were employed. The dose-length product (DLP ) was 218.10 mGy-cm. COMPARISON: Chest CT 01/27/2023 FINDINGS: There is mild emphysema. There is dependent atelectasis bilaterally. There are small pleura l effusions. There is a small right pneumothorax. There is a right-sided chest tube in expected posit ion. There is soft tissue gas in right anterior chest wall and lateral to left shoulder. There is sof t tissue swelling in the anterior chest. There is a right subclavian central venous catheter with tip at superior cavoatrial junction. The heart size is normal. There are coronary artery calcifications. No pericardial effusion. There is calcified atherosclerosis of the aorta and many of the other arter ies. The gallbladder is distended. There is severe cervical, thoracic, and lumbar spondylosis. IMPRESSION: 1. Small right pneumothorax. Right-sided chest tube in expected position. 2. Mild emphysema. 3. Small pleural effusions. 4. Gallbladder distention, which may be secondary to fasting. Correlate with clinical exam to exclude acute cholecystitis. Reviewed, dictated and finalized at location A. IMPRESSION: 1. Small right pneumothorax. Right-sided chest tube in expected position. 2. Mild emphysema. 3. Small pleural effusions. 4. Gallbladder distention, which may be secondary to fasting. Correlate with cl inical exam to exclude acute cholecystitis.
--- NOTE | ~2023-02-12 | XR_ITS ---
EXAMINATION: XR abdomen/kub 1V DATE: 02/12/2023 09:21 INDICATION: Anemia. TECHNIQUE: A supine view of the abdomen on 2 radiographs was obtained. COMPARISON: Small bowel series 01/29/2023, CT abdomen and pelvis 01/27/2023 FINDINGS: There are no dilated loops of bowel. There is a moderate volume of stool in the colon. Ther e are brachytherapy seeds in the cervix. An electronic device overlies the distal stomach. IMPRESSION: 1. Normal bowel gas pattern. 2. An electronic device overlies the distal stomach that may be pill endoscopy. Reviewed, dictated and finalized at location A.
--- NOTE | 2023-02-12 10:08 | PM.SD2 ---
Same Day Admit/Disch: HPI History of Present Illness Chief complaint: poor intravenous access Narrative: Marilyn Stephenson is a 82 year old female who was diagnosed with cervical cancer treated at [facility]. She completed chemotherapy and radiation therapy last April. Since then, she has been troubled with anemia requiring frequent transfusions. She has poor peripheral venous access and I am requested to place a Port-A-Cath by her primary care physician Dr. Mirza. She is taken to surgery now for this purpose. [facility] Past Medical History Medical History Cardiomyopathy Around 1999 the patient had a cardiomyopathy with EF down to 24%, due to an autoimmune problem, recovered. 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enign breast biopsy History of hysteroscopy (01/11/22) hscope D&C History of partial thyroidectomy History of tonsillectomy Internal carotid artery stent present Right 08/2022 complicated by an CO and TIA Status post cataract extraction of both eyes with insertion of intraocular lens Family History Family History Father Heart disease Mother Breast cancer Social History Social History Social History: Her and her have been for 54 years. They have 1 son. 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 She is a former smoker and she does not use any alcohol marijuana or illicit drugs. Surrogate medical decision maker: Armando Stephenson, spouse. Code status: Full code. Smoking packs per day: 2.5 Smoking cigarettes per day: 50.0 Years smoked: 20 Smoking pack-years: 50.00 Smoking status: Former smoker Tobacco type: cigarettes Second hand tobacco smoke exposure: No Smoking end date: 06/23/87 Alcohol intake: current Drinks per week: 6 Alcohol use details: WINE DAILY Substance use: never Substance use type: does not use Lack of Transportation: No Lack of Food: Never True Current Housing: I Have Housing Concerned About Future Housing: No Difficulty Paying Gas/Electric Bills: YES Difficulty Paying for Meds: YES Currently Unemployed: No Education: Master's Degree or Higher Difficulty w/ Childcare or Family Care: No Living arrangements: with family Additional living arrangements comments: Patient lives with her in [place]. Occupation/Education: retired Spiritual care concerns: No Same Day Admit/Disch: Med Pre-admit Medications Home Medications Medication Instructions Recorded Confirmed Type acetaminophen 500 mg tablet 1,000 mg PO Q6H PRN Mild Pain 01/12/22 02/12/23 Rx (1-3) Or Fever 10 days #60 tabs aspirin 81 mg tablet,delayed 81 mg PO DAILY 11/19/22 02/12/23 History release (Vianey Low Dose Aspirin) atorvastatin 80 mg tablet 80 mg PO QHS #90 tabs 12/02/22 02/12/23 Rx carbidopa 25 mg-levodopa 100 mg 1 tablet PO TID 01/28/23 02/12/23 History tablet cholecalciferol (vitamin D3) 1,250 1,250 mcg PO WEEKLY 02/09/23 02/12/23 History mcg (50,000 unit) capsule
[2023-02-12] MEDS: LACTATED RINGERS 1,000 ML 30 ML IV CONT ×2 (10:24→13:23)
[2023-02-12] MEDS: KETOROLAC 15 MG/ML VIAL (*BKC) IV PUSH (10:53)
--- NOTE | 2023-02-12 11:24 | WPDHPUPDATE1 ---
History and Physical Update Update Date/Time: 02/12/23 11:24 History and Physical has been reviewed, including an updated exam of the patient. There are NO changes in the patient's condition. Risks, benefits, and alternatives have been discussed and questions answered. Patient agrees to proceed with procedure.
[2023-02-12] MEDS: ceFAZolin 2 GM/D5W 50 ML 2 GM/50 ML BAG IVPB (11:28)
[2023-02-12] MEDS: BUPIVACAINE/EPINEPHRINE 0.5% 50 ML VIAL 40 ML INFILTRATE (12:01)
[2023-02-12] MEDS: HEPARIN SODIUM 5,000 UNITS/ML VIAL 1000 UNITS XX (12:21)
--- NOTE | 2023-02-12 13:41 | W.PM.PROC2 ---
Procedure Note - Detailed Date of Procedure 02/12/23 Pre-op Diagnosis poor intravenous access, chronic anemia Post-op Diagnosis Same Procedure Performed Attempted placement left-sided Fwag-C-Hmox-both internal jugular and subclavian approach under fluoroscopy and using ultrasound Surgeon Agus Sagastume MD Paper Machine Supervisor Suzy HERNANDEZ Anesthesia General (G IV S) and Local (0.5% Marcaine with epinephrine) Indications Patient is an 82-year-old woman who completed chemotherapy for cervical cancer last April. She has a history of chronic and severe anemia to where she is currently getting transfused about every 5-6 days. She has poor peripheral venous access. She is taken to surgery at this time for placement of a Port-A-Cath. Findings I was then able to get venous access from the left subclavian position. Using ultrasound I was able to cannulate the left internal jugular vein 3 or 4 times. Unfortunately, the sleeve on the Port-A-Cath would kink and crack such that the Port-A-Cath would not pass into the superior vena cava. We tried this several times without success. The patient's oxygen saturations were then becoming low and since we had already been in the operating attempting placement for quite some time, we terminated the procedure. The procedure took 90 minutes and we were still not able to place the Port-A-Cath. This is over 3 times as long as usual. We had at least 100 cc blood loss which is at least 5 times more than usually have. Description of Procedure Patient was taken to surgery and placed in a supine position. The left subclavian and left neck areas were prepped and draped. I marked the area for the Port-A-Cath incision just under the left clavicle. Local was infiltrated into the skin and subcutaneous. Incision was made and dissection was carried down through the subcutaneous and through the pectoralis major fascia. I then elevated the fascia and made a subfascial pocket for the Port-A-Cath. I infiltrated additional local into the pectoralis major muscle and into the subcutaneous between the skin and the pocket. I then used a 22 gauge needle and attempted to cannulate the left subclavian vein. This was tried in a supine position flat and in Trendelenburg. No success was achieved. I then brought in the Doppler ultrasound. I visualized the left internal jugular vein and cannulated this vein. Guidewire passed readily and by fluoroscopy was in the superior vena cava. I again used fluoroscopy and marked the course of the Port-A-Cath using the guidewire. I cut the Port-A-Cath to the appropriate length using fluoroscopy in this manner. I then marked a counter incision in the left neck and also infiltrated local here as well as the exit site of the guidewire. These 2 in counter incisions were made. I tunneled the Port-A-Cath such that it exited the incision associated with the exit of the guidewire. Under fluoroscopy, the introducer and sheath were then passed over the guidewire and into the superior vena cava. There was a sharp angulation where the left internal jugular vein joined the left subclavian vein to form the innominate. There was another sharp, 90 degree angulation, where the left innominate joined the right innominate to form the superior vena cava. There was difficulty passing both of these angulations but it appeared we had done so satisfactorily. I then removed the guidewire and introducer. I tried to pass the Port-A-Cath tubing into the sheath but it would not go any farther than the neck. Several attempts were made. These were done under fluoroscopy as well. I then tried to replace the introducer but it would not go any farther than the sheath. I then held pressure and removed the introducer and sheath. I looked at the sheath in it had kinked a few cm from its cap and had cracked where the kink was located. I held pressure until there was no further back bleeding. A new Port-A-Cath package was then opened as th
[2023-02-12 13:46] LABS: Hematocrit 24.6 % (37.0-47.0); Hemoglobin 7.3 g/dL (12.0-15.0); Mean Corpuscular HGB Conc 29.7 g/dl (32-36); Mean Corpuscular Hemoglobin 28.9 pg (26-34); Mean Corpuscular Volume 97.2 fl (80-100); Mean Platelet Volume 9.3 fl (7.4-10.4); Platelet Count Result 180 k/mm3 (150-375); Red Blood Count 2.53 M/mm3 (4.2-5.4); White Blood Count 5.9 K/mm3 (4.5-10.0)
[2023-02-12] MEDS: LIDOCAINE HCL 1% LOCAL INJ 10 ML VIAL INFILTRATE (14:20)
[2023-02-12] MEDS: hetaSTARCH 6%/NACL 500 ML 250 ML IV CONT (14:30)
--- NOTE | 2023-02-12 14:46 | SUR.PHASEI ---
1400-pt. started complaining of SOB and heavy chest . MD Sagastume and MD Dodge notified. Both aware of low BP. The decision was made to place a chest tube at the bedside in the PACU. 1415- anesthesia and MD Sagastume at bedside working with pt. See anesthesia paperwork for documentation.
--- NOTE | 2023-02-12 14:54 | W.PM.PROC2 ---
Procedure Note - Detailed Date of Procedure 02/12/23 Pre-op Diagnosis Right pneumothorax Post-op Diagnosis Same Procedure Performed Placement right chest tube Surgeon Agus Sagastume MD Anesthesia MAC and Local (1% lidocaine plain) Indications Patient was in recovery having just had a lengthy attempt at placing a left subclavian Port-A-Cath. The Port-A-Cath was not able to be placed largely due to acute angulation between the left internal jugular vein and the innominate vein as well as between the innominate vein where it joined with the right innominate to form the superior vena cava. Postprocedure chest x-ray showed a right pneumothorax even though the attempts had been made on the left side. Patient is having some chest discomfort and more trouble breathing. Right-sided chest tube is being placed in the recovery room. Findings Chest x-ray following placement showed the tube to be in good position but the medial aspect of the pleural space had residual pneumothorax. The formal reading of the chest x-ray is pending. Description of Procedure Patient was in the recovery room. Department of anesthesiology assisted with some sedation and monitoring of blood pressure and oxygen saturations. The right anterior chest was prepped and draped. Local anesthesia was infiltrated over the 6th rib just lateral to the midclavicular line. Incision was made. More local anesthetic was infiltrated into the pectoralis muscle and between the ribs just over the 6th rib. Dissection was than carried down through the subcutaneous and through the pectoralis major muscle. Dissection passed over the right 6th rib into the pleural space. A 28 Kittitian trocar chest tube was then passed through the incision and into the right pleural space. The trocar was retracted into the chest tube so the sharp and was no longer protruding. The chest tube was then positioned in the right pleural apex. The trocar was removed. The chest tube was hooked to Pleur-evac suction. The chest tube was sutured to the skin with 0 silk. The skin tore right next to the chest tube and another 0 silk suture was used to close this to avoid bleeding. 4 x 4 gauze was then placed over the exit site of the chest tube. Chest tube was secured with Medipore tape. Portable chest x-ray was taken with the above findings. Patient tolerated the procedure well. She was stable throughout. Estimated Blood Loss -5 Drains Yes (Right tube thoracostomy) Packing No Pathology None sent Complications No immediate complications Condition Stable Disposition No change [facility] Billing Surgery - Charge Forward: Surgery Billing (Placement of right chest tube)
[2023-02-12] MEDS: fentaNYL CITRATE INJ (*CRX) 100 MCG/2 ML VIAL 12.5 MCG IV PUSH ×5 (15:16→16:40)
--- NOTE | 2023-02-12 15:23 | SUR.PHASEI ---
Returned to PACU care at 1430 following bedside procedure.
[2023-02-12] MEDS: MORPHINE SULFATE (*CRX) 2 MG/ML INJ IV PUSH ×2 (18:17→23:04)
--- NOTE | 2023-02-12 19:14 | PM.IMCN ---
Assessment and Plan Assessment and plan (1) Pneumothorax: Code(s): J93.9 - Pneumothorax, unspecified Status: Acute Assessment and Plan: She has a chest tube to the right upper anterior wall. Continue to be monitored by Dr. Sagastume and his associates. (2) Parkinson disease: Code(s): G20 - Parkinson's disease Status: Acute Assessment and Plan: Continue with carbidopa levodopa. (3) Hyperlipidemia: Code(s): E78.5 - Hyperlipidemia, unspecified Status: Acute Assessment and Plan: Continue with atorvastatin. Monitor liver enzymes. (4) Hypertension: Qualifiers: Hypertension type: primary hypertension Qualified Code(s): I10 - Essential (primary) hypertension Code(s): I10 - Essential (primary) hypertension Status: Acute Assessment and Plan: Patient's blood pressure is currently 87/51. This could possibly be due to her anemia.She is not currently on any hypertensive medications. (5) Chronic anemia: Code(s): D64.9 - Anemia, unspecified Status: Acute Assessment and Plan: The patient was receiving a blood transfusion when I went into the room. Continue to check H&H every 6 hours. The patient was also given hetastarch in the OR. (6) Paroxysmal atrial fibrillation: Code(s): I48.0 - Paroxysmal atrial fibrillation Status: Acute Assessment and Plan: The patient was taken off of her anticoagulation long ago when she developed anemia. (7) Hyperlipidemia LDL goal <100: Code(s): E78.5 - Hyperlipidemia, unspecified Status: Acute Assessment and Plan: Continue with atorvastatin continue to monitor liver enzymes. Plan Thank you for consulting the hospitalist group. If you should have any questions or concerns please feel free to reach out to the rounding provider caring for the patient that day. HPI Data of Consult Consult date: 02/12/23 Requesting Physician: Agus Sagastume MD Primary Care Provider: Taras Mirza DO Consult Narrative Narrative: Marilyn Stephenson is a 82 year old female who I had admitted on 02/09/2023. She has a history of cervical cancer and has had chemotherapy and radiation and has been anemic every since then. The patient has been requiring blood transfusions over the last couple weeks and is currently undergoing outpatient evaluation by Gastroenterology. She denies any blood in her stool or blood in her urine. The patient has been on Epogen. The patient did have a history of blood clots in the past and had been on anticoagulation has been taken off of anticoagulation since then. The patient was taken to surgery per Dr. Sagastume today today. The patient had a lengthy attempt of placing a left subclavian Port-A-Cath today. Please see operative note per Dr. Sagastume. Postprocedure an x-ray showed a right pneumothorax even though the attempts had been made on the left side. The patient was having some chest discomfort MR trouble breathing. A right-sided chest tube is was placed in the recovery room. The patient was receiving a blood transfusion when I went to see her. Her H&H 7.3 and 24.6. The hospitalist was asked to consult on the date of service of 02/12/2023. Review of Systems Review of Systems: All systems reviewed & are unremarkable except as noted in HPI and below Constitutional: Constitutional: Reports as per HPI and Reports no additional constitutional complaints Eyes: Eyes: Reports as per HPI and Reports no additional eye complaints ENT: Reports system reviewed and no additional complaints, except as documented and Reports Normal hearing present Cardiovascular: Cardiovascular: Reports no additional cardiovascular complaints Respiratory: Respiratory: Reports no additional respiratory complaints and Reports no additional respiratory complaints Gastrointestinal: Gastrointestinal: Reports as per HPI and Reports no additional gastrointestinal complaints Musculoskelet
[2023-02-12] MEDS: HYDROcodone/acetaminophen (*CRX) 5-325 MG TABLET 1 TAB PO (20:09)
[2023-02-12] MEDS: ATORVASTATIN 40 MG TABLET 80 MG PO (20:09)
[2023-02-12] MEDS: FAMOTIDINE 20 MG TABLET PO (20:10)
[2023-02-12] MEDS: CARBIDOPA/LEVODOPA 25/100 MG TABLET 1 TABLET PO (20:10)
[2023-02-12] MEDS: SODIUM CHLORIDE 0.9% IV 250 ML 30 ML IV CONT (20:41)
[2023-02-12] MEDS: LACTATED RINGERS 1,000 ML 80 ML IV CONT (23:04)
[2023-02-13] VITALS (30 sets, daily range): BP systolic 71–129; BP diastolic 42–82; PULSE 67–115; RESP 12–22; TEMP 36.1–37.1; O2SAT 93–100
[2023-02-13 01:22] LABS: Hematocrit 31.2 % (37.0-47.0); Hemoglobin 9.7 g/dL (12.0-15.0)
[2023-02-13] MEDS: MORPHINE SULFATE (*CRX) 2 MG/ML INJ IV PUSH ×3 (04:08→20:09)
[2023-02-13] MEDS: CARBIDOPA/LEVODOPA 25/100 MG TABLET 1 TABLET PO ×2 (04:08→13:26)
[2023-02-13 04:59] LABS: Basophils Percent Auto 0.2 % (0.2-1.2); Eosinophils Absolute Auto 0.2 K/mm3 (0-0.3); Hematocrit 31.3 % (37.0-47.0); Hemoglobin 9.9 g/dL (12.0-15.0); Immature Granulocyte Absolute 0.02 K/mm3 (0.00-0.031); Immature Granulocyte Percent A 0.4 % (0-0.5); Immature Platelet Fraction Pct 1.7 % (0.9-11.2); Lymphocytes Absolute Auto 0.42 K/mm3 (0.9-3.2); Lymphocytes Percent Auto 7.9 % (18.3-44.2); Mean Corpuscular HGB Conc 31.6 g/dl (32-36); Mean Corpuscular Hemoglobin 30.1 pg (26-34); Mean Corpuscular Volume 95.1 fl (80-100); Mean Platelet Volume 10.6 fl (7.4-10.4); Monocytes Absolute Auto 0.4 K/mm3 (0.1-0.6); Monocytes Percent Auto 7.3 % (2.6-8.5); Neutrophils Absolute Auto 4.3 K/mm3 (1.3-6.7); Neutrophils Percent Auto 81.2 % (45.5-73.1); Platelet Count Result 105 k/mm3 (150-375); Red Blood Count 3.29 M/mm3 (4.2-5.4); Red Cell Distribution Width 18.2 % (11.5-14.5); White Blood Count 5.3 K/mm3 (4.5-10.0)
[2023-02-13 05:12] LABS: Lactic Acid Reflex 0.9 mmol/L (0.7-2.0)
[2023-02-13 05:31] LABS: Platelet Estimate Decreased (Adequate)
[2023-02-13 05:32] LABS: Anisocytosis 1+ (NORMAL); Burr Cells 1+ (NORMAL); Schistocytes None Seen (NORMAL)
--- NOTE | 2023-02-13 06:22 | PC.NURSE ---
Patient off floor to endoscopy at 0612. All lines and dressings intact. Patient's to procedure area with GI RN.
--- NOTE | 2023-02-13 06:29 | WPDANESEPPF ---
Anes - Initial Pre Proc Eval Procedure: Operation Date: 02/12/23 11:00 Proposed Procedures p Insertion Dagmar Cath - Agus Sagastume MD Operation Date: 02/13/23 07:00 Proposed Procedures p Esophagogastroduodenoscopy & Foreign Body Removal, - Keenan Simeon MD s With Capsule Deployment - Keenan Simeon MD Date/Time: 02/13/23 06:29 Surgeon: Agus Sagastume MD Pre Op Diagnosis: poor intravenous access Patient Data Age: 82 Gender: F Height: 1.52 m Weight: 46.4 kg Last Vital Signs Temp 36.1 C L 02/13/23 04:00 Pulse 85 02/13/23 06:00 Resp 16 02/13/23 04:00 BP 108/82 02/13/23 04:00 Pulse Ox 100 02/13/23 04:00 O2 Del Method Nasal Cannula 02/13/23 04:00 O2 Flow Rate 2 02/13/23 04:00 Allergies Allergy/AdvReac Type Severity Reaction Status Date / Time latex Allergy Mild rash Verified 02/12/23 09:38 aspirin AdvReac Mild stomach Verified 02/12/23 09:38 pain Home Medications Medication Instructions Recorded Confirmed Type acetaminophen 500 mg tablet 1,000 mg PO Q6H PRN Mild Pain 01/12/22 02/12/23 Rx (1-3) Or Fever 10 days #60 tabs aspirin 81 mg tablet,delayed 81 mg PO DAILY 11/19/22 02/12/23 History release (Vianey Low Dose Aspirin) atorvastatin 80 mg tablet 80 mg PO QHS #90 tabs 12/02/22 02/12/23 Rx carbidopa 25 mg-levodopa 100 mg 1 tablet PO TID 01/28/23 02/12/23 History tablet cholecalciferol (vitamin D3) 1,250 1,250 mcg PO WEEKLY 02/09/23 02/12/23 History mcg (50,000 unit) capsule colchicine (gout) 0.6 mg tablet 0.6 mg PO DAILY PRN .Gout flare up. 02/09/23 02/11/23 History docusate sodium 100 mg capsule 100 mg PO DAILY PRN Constipation 02/09/23 02/12/23 History (Dulcolax Stool Softener (docusate)) furosemide 20 mg tablet 20 mg PO EVERY OTHER DAY 02/09/23 02/12/23 History polyethylene glycol 3350 17 gram 17 g PO DAILY PRN Constipation 02/09/23 02/12/23 History oral powder packet (Miralax) Laboratory Tests 02/12/23 02/12/23 02/13/23 13:36 15:31 00:33 WBC 5.9 K/mm3 (4.5-10.0) RBC 2.53 L M/mm3 (4.2-5.4) Hgb 7.3 L g/dL 9.7 L g/dL (12.0-15.0) (12.0-15.0) Hct 24.6 L % 31.2 L % (37.0-47.0) (37.0-47.0) MCV 97.2 fl (80-100) MCH 28.9 pg (26-34) MCHC 29.7 L g/dl (32-36) RDW 23.0 H % (11.5-14.5) Plt Count 180 k/mm3 (150-375) MPV 9.3 fl (7.4-10.4) Immature Gran % (Auto) Neut % (Auto) Lymph % (Auto) [place] % (Auto) Eos % (Auto) Baso % (Auto) Lymph # (Auto) [place] # (Auto) Eos # (Auto) Baso # (Auto) Abs Immat Gran (auto) Absolute Neuts (auto) Absolute Nucleated RBC Nucleated RBC % Platelet Estimate % Immature Plt Fraction Anisocytosis Brennon Cells Schistocytes Sodium Potassium Chloride Carbon Dioxide Anion Gap BUN Creatinine Estim Creat Clear Calc Estimated GFR Glucose Lactic Acid Calcium Magnesium Total Bilirubin AST ALT Alkaline Phosphatase Total Protein Albumin TSH (Reflex) Blood Type O Negative Antibody Screen Negative Crossmatch See Detail 02/13/23 04:46 WBC 5.3 K/mm3 (4.5-10.0) RBC 3.29 L M/mm3 (4.2-5.4) Hgb 9.9 L g/dL (12.0-15.0) Hct 31.3 L % (37.0-47.0) MCV 95.1 fl (80-100) MCH 30.1 pg (26-34) MCHC 31.6 L g/dl (32-36) RDW 18.2 H % (11.5-14.5) Plt Count 105 L k/mm3 (150-375) MPV 10.6 H fl (7.4-10.4) Immature Gran % (Auto) 0.4 %
[2023-02-13] MEDS: LACTATED RINGERS 1,000 ML 150 ML IV CONT (06:44)
--- NOTE | 2023-02-13 06:48 | SUR.PREOP ---
271 IMU nurse looked at dressing with me prior to transporting pt to the Endoscopy Lab. patient arrived via stretcher to the pre-op area. Chest tube hooked back to low intermittent wall suction upon arrival to the GI lab. Spouse at bedside. Dressing to left upper chest times two intact remains unchanged from up on the floor. Shadowing noted on the dressing like up on the floor.
--- NOTE | 2023-02-13 07:05 | WPDGICN ---
Assessment and Plan Assessment and plan (1) Symptomatic anemia: Code(s): D64.9 - Anemia, unspecified Status: Acute Assessment and Plan: h/h this time stable but recently required blood transfusion she had poor iv access, yesterday could not get port-a-cath and had to be admitted when noted chest pain during recovery and had pneumothorax (2) GIB (gastrointestinal bleeding): Code(s): K92.2 - Gastrointestinal hemorrhage, unspecified Status: Acute Assessment and Plan: probably occult bleeding off anticoagulation anemia also multifactorial (h/o cervical cancer and other medical problems)- will ask hematology to see will remove capsule that is still in the stomach, then most likely will dilate pylorus and deploy a new capsule endoscopy so in the way we can assess small bowel (3) Pyloric stenosis in adult: Code(s): K31.1 - Adult hypertrophic pyloric stenosis Status: Acute (4) Stage 3b chronic kidney disease: Code(s): N18.32 - Chronic kidney disease, stage 3b Status: Acute GI Consult Note Consult date/time: 02/13/23 07:05 Reason for consult: acute on chronic anemia HPI: Marilyn Stephenson is a 82 year old female with history of coronary artery disease, peripheral artery disease on aspirin, right carotid stenosis that was treated with stenting at [facility] several months ago (not longer on plavix), TIA, cervical cancer- finished her chemotherapy and radiation therapy in April at [facility], paroxysmal atrial fibrillation used to be on Eliquis, peptic ulcer disease (2020 had duodenal ulcer- repeat EGD by Dr Chino showed healing of ulcer), chronic kidney disease stage 3. I met her after during hospitalization due to severe anemia, EGD showed mild pyloric stenosis but easy to traverse, colonoscopy with old blood ? probably source small bowel, then had capsule endoscopy but noted that did not pass into duodenum. She had recurrent anemia since and required even more blood transfusion but also had poor iv access (could not get more picc line and last time only iv access was in foot). Finally surgery tried to place port-a-cath unsuccessfully, during recovery she had chest pain, CXR noted pneumothorax but in right side (iv access was attempted in left side). She was admitted and today I will remove previous capsule that is still in stomach, then deploy new one into duodenum. Review of Systems Constitutional: Constitutional: Reports fatigue and Reports weakness Eyes: Eyes: Denies blurry vision ENT: Reports Normal hearing present Cardiovascular: Cardiovascular: Denies leg edema Respiratory: Respiratory: Denies cough Gastrointestinal: Gastrointestinal: Denies abdominal pain Musculoskeletal: Musculoskeletal: Denies back pain Integumentary/Breasts: Skin/Breast: Denies rash Neurologic: Denies confusion [facility] Past Medical History Medical History Cardiomyopathy Around 1999 the patient had a cardiomyopathy with EF down to 24%, due to an autoimmune problem, recovered. 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
--- NOTE | 2023-02-13 08:15 | SUR.OPER ---
new Givens capsule LOT [id number] and EXP 06-19-2023 capsule ID [id number]
[2023-02-13] MEDS: FUROSEMIDE 20 MG TABLET PO (09:23)
[2023-02-13] MEDS: PANTOPRAZOLE 40 MG TABLET PO ×2 (09:23→20:09)
[2023-02-13] MEDS: ASPIRIN 81 MG ENTERIC TABLET PO (09:23)
[2023-02-13 12:04] LABS: Hematocrit 32.2 % (37.0-47.0); Hemoglobin 10.2 g/dL (12.0-15.0)
[2023-02-13 12:18] LABS: Alanine Aminotransferase 8 U/L (6-35); Albumin Level 2.4 g/dL (3.5-5.1); Alkaline Phosphatase 49 U/L (38-126); Anion Gap 5 mmol/L (8-16); Aspartate Amino Transferase 14 U/L (14-36); Bilirubin,Total 0.6 mg/dL (0.2-1.3); Blood Urea Nitrogen 26 mg/dL (7-17); Calcium 7.4 mg/dL (8.4-10.2); Carbon Dioxide 20 mmol/L (22-30); Chloride 111 mmol/L (98-107); Estimated CRCL calculation 27 ml/min; Estimated Glomerular Filt Rate 53; Glucose 104 mg/dL (65-110); Magnesium 1.6 mg/dL (1.6-2.3); Potassium 4.6 mmol/L (3.4-5.0); Sodium 136 mmol/L (137-145)
--- NOTE | 2023-02-13 13:29 | PM.IMPN ---
Progress Note: A&P Assessment and Plan (1) Pneumothorax: Code(s): J93.9 - Pneumothorax, unspecified Status: Acute Assessment and Plan: She has a chest tube to the right upper anterior wall. Continue to be monitored by Dr. Sagastume and his associates. (2) Parkinson disease: Code(s): G20 - Parkinson's disease Status: Acute Assessment and Plan: Continue with carbidopa levodopa. (3) Hyperlipidemia: Code(s): E78.5 - Hyperlipidemia, unspecified Status: Acute Assessment and Plan: Continue with atorvastatin. Monitor liver enzymes. (4) Hypertension: Qualifiers: Hypertension type: primary hypertension Qualified Code(s): I10 - Essential (primary) hypertension Code(s): I10 - Essential (primary) hypertension Status: Acute Assessment and Plan: Blood pressure low but improved now continue to monitor likely due to anemia (5) Chronic anemia: Code(s): D64.9 - Anemia, unspecified Status: Acute Assessment and Plan: Status post transfusion monitor H&H (6) Paroxysmal atrial fibrillation: Code(s): I48.0 - Paroxysmal atrial fibrillation Status: Acute Assessment and Plan: The patient was taken off of her anticoagulation long ago when she developed anemia. (7) Hyperlipidemia LDL goal <100: Code(s): E78.5 - Hyperlipidemia, unspecified Status: Acute Assessment and Plan: Continue with atorvastatin continue to monitor liver enzymes. Plan 82-year-old female with coronary artery disease peripheral artery disease cervical cancer paroxysmal atrial fibrillation on anticoagulation used to be on Eliquis peptic ulcer disease and chronic kidney disease stage 3, recent nerve ablation to low back at [facility]. Presented to currently with anemia stool occult blood positive EGD and colonoscopy 01/29/2023: Pyloric stenosis mild with minimal localized inflammation no signs recent bleeding biopsies taken.? Colonoscopy 01/29/2023: Colon polyps and diverticulosis luminal colonic blood in noted.? Capsule study in process. Recently done capsule did not advanced into small-bowel another 1 placed again on 02/13/2023. History of cervical cancer underwent treatment.? Cardiomyopathy peripheral vascular disease consideration of Plavix rather than aspirin due to peptic ulcer disease process. egd without any severe peptic ulcer disease or gastritis, resumed on aspirin 81 mg daily. fu labs in few days and fu with pcp. Pneumothorax post port placement chest tube in place management per General surgery Pyloric stenosis was advised for PPI however patient did not take due to concern for side effects and interaction Subjective Date/time seen: 02/13/23 13:29 Interval history: Chart reviewed. Chest tube in place. H&H reviewed. Underwent capsule study today. Review of Systems Review of Systems: All systems reviewed & are unremarkable except as noted in HPI and below Exam Narrative: Patient is comfortable HEENT: eyes are clear and none icteric LUNGS:? Normal respiratory effort ABD0:? Not distended Lower extremities: no edema Neuro: grossly intact. Objective Data Vital Signs Vital Signs: Vital Signs - 24 hr 02/12/23 13:30 02/12/23 13:35 02/12/23 13:45 Temperature Pulse Rate 96 104 H 109 H Respiratory Rate 19 19 15 Blood Pressure 120/75 118/62 161/90 H Pulse Oximetry 99 100 96 Oxygen Delivery Simple Face Mask Room Air Room Air Oxygen Flow Rate 10 02/12/23 14:00 02/12/23 14:15 02/12/23 14:30 Temperature Pulse Rate 105 H 103 H 96 Respiratory Rate 15 20 19 Blood Pressure 74/58 L 76/57 L 87/68 L Pulse Oximetry 100 97 98 Oxygen Delivery Nasal Cannula Nasal Cannula Nasal Cannula Oxygen Flow Rate 2 2 2 02/12/23 14:40 02/12/23 14:45 02/12/23 15:00 Temperature Pulse Rate 92 92 94 Respiratory Rate 14 13 15 Blood Pressure 118/59 L 105/82 100/63 Pulse Oximetry 96 100 100 Oxygen Delivery Neftali
--- NOTE | 2023-02-13 14:20 | P.PNAN_ITS ---
Anes - Eval Final PreProcedure Day of Procedure 02/13/23 14:20 Patient weight: normal Heart: regular rate and rhythm Lungs: clear to auscultation Neurological: alert and oriented Last oral intake: >/= 8 hours ASA classification: IV Emergent: no Anesthetic plan: proceed Anesthesia type and monitoring: general LMA and standard monitoring Results Review: All pre-operative results and documents have been reviewed as part of the pre- operative evaluation. Informed Consent: The patient's anesthetic plan and its attendant risks and benefits were discussed with the patient/family/POA. Questions were solicited and answers pro vided to the satisfaction of the patient/family/POA.
--- NOTE | 2023-02-13 14:33 | P.HPUP_ITS ---
History and Physical Update Update Date/Time: 02/13/23 14:33 Plan changed to placement of dual lumen Bush catheter as this will not require puncture of skin to use. Patient's skin very fragile and repeated puncture as well as creation of portacath pocket likely to result in skin break down and portacath infection. Discussed with patient and her . Will place on right side as left was unsuccessful yesterday and chest tube already in place on right side. History and Physical has been reviewed, including an updated exam of the patient. There are NO changes in the patient's condition. Risks, benefits, and alternatives have been discussed and questions answered. Patient agrees to proceed with procedure.
--- NOTE | 2023-02-13 14:41 | SUR.OPER ---
1440 Patient being taken to the OR suite. Spoke directly with Dr Sagastume and agreed to remove recorder device from patient prior to surgery. Blue light continued to flash upon removal. Education provided to patient and family.
[2023-02-13] MEDS: ceFAZolin 2 GM/D5W 50 ML 2 GM/50 ML BAG IVPB (14:47)
[2023-02-13] MEDS: SODIUM CHLORIDE 0.9% IV 500 ML 30 ML IV CONT (15:07)
[2023-02-13] MEDS: LIDO 1%/EPINEPHRINE 1:100,000 20 ML VIAL 30 ML INFILTRATE (15:22)
[2023-02-13] MEDS: HEPARIN SODIUM, PORCINE 10,000 UNITS/10 ML VIAL 10000 UNITS IRRIGATION (15:42)
--- NOTE | 2023-02-13 16:53 | W.PM.PROC2 ---
Procedure Note - Detailed Date of Procedure 02/13/23 Pre-op Diagnosis poor intravenous access, chronic anemia Post-op Diagnosis Same Procedure Performed Placement of right subclavian tunneled dual lumen 12 [place] Bush catheter under fluoroscopy Surgeon Agus Sagastume MD Septic Tank Servicer Haley Agrawal HIM MANAGER Anesthesia General (LMA) and Local (0.5% Marcaine with epinephrine) Indications Patient is an 82-year-old woman who has chronic anemia from an unknown source and is requiring transfusion every 3-5 days. Yesterday she had an attempted placement of a left subclavian Port-A-Cath which was unsuccessful. Patient's skin is very friable, tears easily, and also separates easily from the subcutaneous. Left IJ approach was difficult as we could not pass the catheter and guidewire across the angulation between the left innominate origin nor the junction of the left and right innominate vein. Even though all the procedure was done on the left side, patient had a right-sided pneumothorax following the procedure and has a chest tube in place. She has literally no peripheral venous access and her only IV at this time is in the saphenous vein in her left ankle. She is taken back to surgery now for right-sided placement of a tunneled Bush catheter. With her very fragile skin, it is felt that repeated puncture of the skin for a Port-A-Cath would likely result in skin breakdown, exposure of the Port-A-Cath, and infection. Bus, the Port-A-Cath has been abandoned and a dual lumen tunneled Bush catheter placed instead. Findings Catheter tip was in the distal SVC right atrial junction. Patient's skin again was very friable and easily from the subcutaneous or tore. Catheter placement however was able to be accomplished. Catheter exits just medial to the right sided chest tube. Description of Procedure Patient was taken to the operating room and anesthesia was introduced via LMA. Towel rolls place just to the right of her spine and head was turned slightly to the left. The right neck and subclavian areas were prepped and draped. The chest tube exit site as well as the chest tube itself was sprayed and prepped into the field but then toweled away from the main area vascular access. Local anesthetic was introduced into the skin and the subcutaneous under the right clavicle. The left subclavian vein was then cannulated and a guidewire was able to be passed in a limited manner. We brought C-arm fluoroscopy into the field. The guidewire had gone up into the right internal jugular vein. Under fluoroscopy, the guidewire was brought back down to the right subclavian vein and then turned so that it passed into the superior vena cava. With the guidewire in position, we then brought the Bush catheter into the field. I mapped out on the anterior chest wall the course of the Bush catheter tunneling. Three counter incisions were marked on the skin. Local was infiltrated in the area of each counter incision. I then tunneled the Bush catheter retrograde through each of the counter incisions. Incision was also made at the exit site of the guidewire and finally the catheter was tunneled out the exit site of the guidewire. One of the counter incisions had a skin tear elongating the incision despite our best efforts at avoiding this. At this point, I brought C-arm back into the field and then measured the length of catheter needed using the guidewire and fluoroscopy. A Bush catheter was then cut to the appropriate length. Again under fluoroscopy, I passed an introducer and sheath over the guidewire and into the superior vena cava. The guidewire and introducer were then removed. The into the Bush catheter was passed into the sheath and advanced into the superior vena cava. The sheath was then removed. Using fluoroscopy, the catheter appeared to be in good position. There did not appear to be any kinks in the catheter as it passed through the tunneled area or in
[2023-02-13] MEDS: LACTATED RINGERS 1,000 ML 80 ML IV CONT (17:55)
[2023-02-13] MEDS: CENTRAL LINE FLUSH 10 ML IV PUSH ×2 (17:56→20:09)
--- NOTE | 2023-02-13 19:03 | PDONCCN ---
HPI - Date of Consult Date/Time: 02/13/23 19:03 Requesting Physician: Agus Sagastume MD Primary Care Provider: Taras Mirza, DO - Consult Narrative Reason for consult: Anemia and thrombocytopenia Narrative: Marilyn Stephenson is a 82 year old female with history of cervical cancer status post radiation and chemotherapy treatment done about 1 and half years ago and was recently discharged from the hospital on February 10 after being treated for anemia came back into the hospital with complain of tiredness and fatigue. Patient also has history of chronic kidney stage 3 disease. Patient has history of peptic ulcer disease and peripheral vascular disease. She has history of atrial fibrillation and coronary artery disease. Patient was on Epogen but discontinued due to blood clot. She has been taken off the anticoagulation therapy due to significant anemia. Patient had colonoscopy done on January 29 that showed colon polyps diverticulosis and luminal colonic blood. EGD done on the same date showed pyloric stenosis. Repeat capsule enteroscopy was performed and results are not back. Labs from January 27 showed iron 21 saturation 5% vitamin B12 207. Patient received vitamin B12 injections in the last admission as well as 2 units of packed red blood cell for hemoglobin of 6.1. She remains quite tired and fatigued. Review of Systems - Review of Systems All systems reviewed & are unremarkable except as noted in HPI and bel - Neurologic Reports system reviewed and no additional complaints, except as documented, Reports hearing normal, Reports weakness, Denies confusion [facility] Medical History: Medical History (Last Reviewed 02/13/23 @ 06:29 by Grey Beal MD) Cardiomyopathy Around 1999 the patient had a cardiomyopathy with EF down to 24%, due to an autoimmune problem, recovered. 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 Hyperlipidemia Hypertension Kidney stone Melena NSTEMI (non-ST elevated myocardial infarction) Osteoarthritis of foot Parkinson disease Paroxysmal atrial fibrillation Paroxysmal supraventricular tachycardia Peptic ulcer Pulmonary embolism Pyloric stenosis in adult Secondary renal hyperparathyroidism Skin cancer Stage 3 chronic kidney disease Uterine cancer Vitamin D deficiency Surgical History: Surgical History (Last Reviewed 02/13/23 @ 06:29 by Grey Beal MD) History of appendectomy History of benign breast biopsy History of hysteroscopy Onset Date: 01/11/22 hscope D&C History of partial thyroidectomy History of tonsillectomy Internal carotid artery stent present Right 08/2022 complicated by an DC and TIA Status post cataract extraction of both eyes with insertion of intraocular lens Family History: Family History (Last Reviewed 02/13/23 @ 06:29 by Grey Beal MD) Father Heart disease Mother Breast cancer - Social History Social History: Social History (Last Reviewed 02/13/23 @ 06:29 by Grey Beal MD) Alcohol Use: Alcohol intake: current Drinks per week: 6 Alcohol use details: WINE DAILY Substance Use: Substance use: never Substance use type: does not use Others: Spiritual care concerns: No Living Arrangements: Living arrangements: with family Oppucation/Education: Occupation/Education: retired Smoking Status: Smoking status: Former smoker Tobacco type: cigarettes Second hand tobacco smoke exposure: No Smoking end date: 06/23/87 Approximate Smoking End Date: 1981 Smoking Pack-years: Smoking packs per day: 2.5 Smoking cigarettes per day: 50.0 Years smoked: 2
[2023-02-13] MEDS: CYANOCOBALAMIN INJ 1,000 MCG/ML VIAL 1000 MCG IM (20:21)
[2023-02-13 20:40] LABS: Lactate Dehydrogenase 117 U/L (120-246)
[2023-02-13 21:26] LABS: Iron 30 ug/dL (37-170)
[2023-02-13 21:38] LABS: Percent Iron Saturation 12 % (20-50)
[2023-02-13] MEDS: SODIUM CHLORIDE 0.9% IV 1,000 ML 999 ML IV CONT (21:52)
[2023-02-13 23:14] LABS: Folic Acid 5.4 ng/mL (2.76->20)
[2023-02-13 23:35] LABS: Hematocrit 23.9 % (37.0-47.0); Hemoglobin 7.4 g/dL (12.0-15.0)
[2023-02-13] MEDS: SODIUM CHLORIDE 0.9% IV 250 ML 30 ML IV CONT (23:43)
[2023-02-13 23:46] LABS: INR 1.3; Prothrombin Time 16.9 Seconds (11.1-14.7)
[2023-02-13 23:48] LABS: Partial Thromboplastin Time 100.1 SECONDS (22.3-36.8)
--- NOTE | 2023-02-13 23:48 | PM.EVENT ---
Event Note Event Note Event Note: Was called to evaluate the patient after she became hypotensive had received 2 wound L of normal saline earlier in the night however patient became hypotensive again. Upon arrival to the room patient is been assisted by a to nurses at bedside her port site is being assessed considerable bleeding is noted on wet compresses as well as subcutaneous tissue with a hematoma. Subjective: Patient in distress delirious mumbling words Objective: Patient delirious blood pressure is 80s over 50s General: Patient is in laying in bed in obvious distress HEENT: Atraumatic normocephalic PERRLA EOM intact neck supple no JVD no lymphadenopathies Respiratory: No respiratory distress Cardiovascular: Hypotensive Thorax: Chest tube in place: Bush catheter in place: Large hematoma localized to the right side with extension into the shoulder area. Abdomen: Normal to inspection Extremities: No edema Assessment and plan: 1. Acute blood loss: Stat 1 unit of packed red blood cells, stat H&H. 2. Hematoma: CT of the chest
[2023-02-13] MEDS: TUBING, BLOOD PLUM PUMP TUBING 1 EACH XX (23:50)
[2023-02-14] VITALS (17 sets, daily range): BP systolic 95–126; BP diastolic 50–63; PULSE 87–106; RESP 16–20; TEMP 36.4–36.9; O2SAT 96–100
--- NOTE | 2023-02-14 00:48 | PC.NURSE ---
Patient hypotensive at 2315 with blood pressures 80's/40's and MAP of 50. Patient also extremely confused saying that she was extremely terrified and I don't understand why you're doing this to me. delivery table feeder Jesus at bedside. Patient answers questions appropriately, but thinks staff is trying to harm her. Patient noted to have saturated chest tube dressing and oozing from bruised area to right shoulder. Dr. Henao called to bedside as blood pressures remained low. Received orders for 2 L NS bolus and stat H&H and to transfuse 1 unit PRBC's. Stat CXR obtained and patient taken for STAT CT of chest. Blood pressures stabilizing after bolus of fluids and blood transfusion initiated. Patient remains guarded at this time. Will continue to monitor.
[2023-02-14] MEDS: SODIUM CHLORIDE 0.9% IV 1,000 ML 999 ML IV CONT (01:08)
[2023-02-14] MEDS: LACTATED RINGERS 1,000 ML 80 ML IV CONT ×2 (02:10→17:07)
[2023-02-14 04:02] LABS: Hematocrit 26.9 % (37.0-47.0); Hemoglobin 8.6 g/dL (12.0-15.0); Immature Platelet Fraction Pct 1.1 % (0.9-11.2); Mean Corpuscular Hemoglobin 30.6 pg (26-34); Mean Corpuscular Volume 95.7 fl (80-100); Platelet Count Result 100 k/mm3 (150-375); Red Blood Count 2.81 M/mm3 (4.2-5.4); Red Cell Distribution Width 16.8 % (11.5-14.5); White Blood Count 4.8 K/mm3 (4.5-10.0)
[2023-02-14 04:11] LABS: Anion Gap 4 mmol/L (8-16); Blood Urea Nitrogen 23 mg/dL (7-17); Calcium 6.4 mg/dL (8.4-10.2); Carbon Dioxide 17 mmol/L (22-30); Chloride 114 mmol/L (98-107); Estimated CRCL calculation 27 ml/min; Estimated Glomerular Filt Rate 53; Glucose 107 mg/dL (65-110); Potassium 3.9 mmol/L (3.4-5.0); Sodium 135 mmol/L (137-145)
[2023-02-14] MEDS: CENTRAL LINE FLUSH 10 ML IV PUSH ×3 (06:20→17:07)
--- NOTE | 2023-02-14 07:23 | PM.PNGS ---
Progress Note: A&P Assessment and Plan (1) Pneumothorax: Code(s): J93.9 - Pneumothorax, unspecified Status: Acute Assessment and Plan: Lung fully expanded and no pleural leak. Will place chest tube to water seal and repeat check portable chest x-ray in 2 hours. (2) Symptomatic anemia: Code(s): D64.9 - Anemia, unspecified Status: Acute Assessment and Plan: Some bleeding from chest wounds but not enough to explain the drop in hematocrit experienced last night. Continue to monitor closely. Dressings are dry this morning. (3) Admission for fitting and adjustment of vascular catheter: Code(s): Z45.2 - Encounter for adjustment and management of vascular access device Status: Acute Assessment and Plan: Tunneled Bush catheter working well. Discontinue saphenous vein IV. Subjective Subjective Date/Time Seen: 02/14/23 07:23 Post Op day: 1 Patient reports: other (Very tired this morning. Not really able to verbalize.) Interval history: Patient had to have a couple of her counter incision dressings changed last night as they were leaking. She also had a drop in her H&H and received a unit of packed cells. Chest x-ray and chest CT were both negative for intrathoracic bleeding. Dressings on her chest are dry today. Nursing is using the Bush catheter for IV access. Review of Systems Review of Systems: ROS unobtainable: Yes unobtainable due to medical condition Exam Const: General: comfortable, awake, lethargic and tired appearing Nutritional Appearance: thin Chest: Chest palpation & inspection: abnormal inspection of the chest (Multiple dressings a crossed anterior chest. All are dry. Bruising again ), no crepitus, tenderness and No rash Resp: Effort & Inspection: normal respiratory effort and other (No pleural leak seen on chest tube) Objective Data Vital Signs Vital Signs: Vital Signs - 24 hr 02/13/23 07:31 02/13/23 07:41 02/13/23 07:51 Temperature Pulse Rate 85 84 80 Respiratory Rate Blood Pressure 81/45 L 74/43 L 95/52 L Pulse Oximetry 96 100 100 Oxygen Delivery Nasal Cannula Nasal Cannula Nasal Cannula Oxygen Flow Rate 6 6 3 02/13/23 08:00 02/13/23 08:55 02/13/23 08:00 Temperature 36.2 C L Pulse Rate 74 83 Respiratory Rate 18 Blood Pressure 98/56 L Pulse Oximetry 100 93 Oxygen Delivery Nasal Cannula Oxygen Flow Rate 2 02/13/23 10:00 02/13/23 08:00 02/13/23 12:00 Temperature 36.6 C Pulse Rate 69 78 Respiratory Rate 20 Blood Pressure 123/61 Pulse Oximetry 93 100 Oxygen Delivery Nasal Cannula Oxygen Flow Rate 2 02/13/23 12:00 02/13/23 12:00 02/13/23 14:43 Temperature 36.6 C Pulse Rate 77 82 Respiratory Rate 14 Blood Pressure 104/54 L Pulse Oximetry 100 95 Oxygen Delivery Nasal Cannula Room Air Oxygen Flow Rate 2 02/13/23 15:57 02/13/23 16:25 02/13/23 16:40 Temperature 36.7 C Pulse Rate 109 H 98 97 Respiratory Rate 14 14 12 Blood Pressure 129/70 102/59 L 97/59 L Pulse Oximetry 100 99 99 Oxygen Delivery Simple Face Mask Nasal Cannula Nasal Cannula Oxygen Flow Rate 6 2 2 02/13/23 16:10 02/13/23 18:00 02/13/23 18:00 Temperature 36.3 C L Pulse Rate 99 83 86 Respiratory Rate 14 18 Blood Pressure 92/58 L 100/52 L Pulse Oximetry 100 96 Oxygen Delivery Simple Face Mask Oxygen Flow Rate 6 02/13/23 19:00 02/13/23 20:00 02/13/23 20:00 Temperature 36.1 C L Pulse Rate 89 89 89 Respiratory Rate 18 18 18 Blood Pressure 93/55 L Pulse Oximetry 94 94 94 Oxygen Delivery Nasal Cannula Nasal Cannula Oxygen Flow Rate 2 2 02/13/23 20:00 02/13/23 21:00 02/13/23 21:30 Temperature 36.3 C L 36.6 C Pulse Rate 95 85 92 Respiratory Rate 18 16 Blood Pressure 79/49 L 71/44 L 72/42 L Pulse Oximetry 100 99 99 Oxygen Delivery Oxygen Flow Rate 02/13/23 22:00 02/13/23 20:00 02/13/23 22:00 Temperature Pulse Rate 90 92 88 Respiratory Rate 16 Blood P
[2023-02-14] MEDS: IRON SUCROSE COMPLEX 500 MG in SODIUM CHLORIDE 0.9% IV 250 ML 78.57 MG IVPB (09:10)
[2023-02-14] MEDS: PANTOPRAZOLE 40 MG TABLET PO (09:10)
[2023-02-14] MEDS: MORPHINE SULFATE (*CRX) 2 MG/ML INJ IV PUSH ×2 (09:16→13:34)
[2023-02-14 11:44] LABS: Hemoglobin 7.9 g/dL (12.0-15.0)
--- NOTE | 2023-02-14 12:04 | PC.NURSE ---
Notified Dr. Salinas of repeat H&H of 7.9.0. No new orders at this time
--- NOTE | 2023-02-14 13:21 | PM.IMPN ---
Progress Note: A&P Assessment and Plan (1) Pneumothorax: Code(s): J93.9 - Pneumothorax, unspecified Status: Acute Assessment and Plan: She has a chest tube to the right upper anterior wall. Continue to be monitored by Dr. Sagastume and his associates. (2) Parkinson disease: Code(s): G20 - Parkinson's disease Status: Acute Assessment and Plan: Continue with carbidopa levodopa. (3) Hyperlipidemia: Code(s): E78.5 - Hyperlipidemia, unspecified Status: Acute Assessment and Plan: Continue with atorvastatin. Monitor liver enzymes. (4) Hypertension: Qualifiers: Hypertension type: primary hypertension Qualified Code(s): I10 - Essential (primary) hypertension Code(s): I10 - Essential (primary) hypertension Status: Acute Assessment and Plan: Blood pressure low but improved now continue to monitor likely due to anemia (5) Chronic anemia: Code(s): D64.9 - Anemia, unspecified Status: Acute Assessment and Plan: Status post transfusion monitor H&H (6) Paroxysmal atrial fibrillation: Code(s): I48.0 - Paroxysmal atrial fibrillation Status: Acute Assessment and Plan: The patient was taken off of her anticoagulation long ago when she developed anemia. (7) Hyperlipidemia LDL goal <100: Code(s): E78.5 - Hyperlipidemia, unspecified Status: Acute Assessment and Plan: Continue with atorvastatin continue to monitor liver enzymes. Plan 82-year-old female with coronary artery disease peripheral artery disease cervical cancer paroxysmal atrial fibrillation on anticoagulation used to be on Eliquis peptic ulcer disease and chronic kidney disease stage 3, recent nerve ablation to low back at [facility]. Presented to currently with anemia stool occult blood positive EGD and colonoscopy 01/29/2023: Pyloric stenosis mild with minimal localized inflammation no signs recent bleeding biopsies taken.? Colonoscopy 01/29/2023: Colon polyps and diverticulosis luminal colonic blood in noted.? Capsule study in process. Recently done capsule did not advanced into small-bowel another 1 placed again on 02/13/2023. History of cervical cancer underwent treatment.? Cardiomyopathy peripheral vascular disease consideration of Plavix rather than aspirin due to peptic ulcer disease process. egd without any severe peptic ulcer disease or gastritis, resumed on aspirin 81 mg daily. fu labs in few days and fu with pcp. Pneumothorax post port placement chest tube in place management per General surgery Pyloric stenosis was advised for PPI however patient did not take due to concern for side effects and interaction Active jejunal bleed reveal on capsule. Discussed with GI Transfer to higher facility for definitive treatment Excepted at [facility] ICU Subjective Date/time seen: 02/14/23 13:21 Interval history: Overnight events noted. Discussed with GI. Has active jejunal bleed from capsule study. Call placed to [facility] for higher level of care. Needs IR and/or advanced gastroenterology services. Accepted at [facility] Review of Systems Review of Systems: All systems reviewed & are unremarkable except as noted in HPI and below Exam Narrative: Patient is comfortable HEENT: eyes are clear and none icteric LUNGS:? Normal respiratory effort ABD0:? Not distended Lower extremities: no edema Neuro: grossly intact. Objective Data Vital Signs Vital Signs: Vital Signs - 24 hr 02/13/23 14:43 02/13/23 15:57 02/13/23 16:25 Temperature 97.8 F 98.1 F Pulse Rate 82 109 H 98 Respiratory Rate 14 14 14 Blood Pressure 104/54 L 129/70 102/59 L Pulse Oximetry 95 100 99 Oxygen Delivery Room Air Simple Face Mask Nasal Cannula Oxygen Flow Rate 6 2 02/13/23 16:40 02/13/23 16:10 02/13/23 18:00 Temperature Pulse Rate 97 99 83 Respiratory Rate 12 14 Blood Pressure 97/59 L 92/58 L Pulse Oximetry 99
--- NOTE | 2023-02-14 17:20 | PM.TDS ---
Transfer Discharge Sum: Prov Provider Date of admission: 02/12/23 17:13 Primary care physician: Taras Mirza DO Admitting clinician: Agus Sagastume MD Attending physician on admission: Agus Sagastume Consults: 02/12/23 17:13 Consult to Physician Routine Comment: Called exchange and notified them of consult Consulting Provider: Keenan Simeon housecalls nurse/MD group to consult: Dr. Aquino Reason for consultation: removal capsule and place new capsule for endoscopy Has provider been notified: Yes Consult to Physician Routine Comment: Spoke with Cailin and notified her of consult Consulting Provider: Cailin Pena housecalls nurse/MD group to consult: Hospitalist Reason for consultation: Postop medical management Has provider been notified: Yes 02/13/23 07:54 Consult to Physician Routine Comment: Consulting Provider: Aydin Kaye housecalls nurse/MD group to consult: hematology Reason for consultation: recurrent anemia Has provider been notified: Yes Attending physician on discharge: Agus Sagastume Discharging clinician: Agus Sagastume Anticipated date of transfer: 02/14/23 Receiving physician/facility: [facility] DS: Admitting Diagnosis Discharge Date 02/14/2023 Admitting Diagnosis Chronic anemia requiring transfusion and iron therapy Poor peripheral venous access-plan to place Port-A-Cath under fluoroscopy.? The procedure the risks the benefits have been discussed.? All questions were answered.? She understands and agrees to go ahead. History of cervical cancer Parkinson's disease History of stroke March 2022 DS: Discharge Diagnosis Discharge Diagnosis (1) Small intestinal hemorrhage: Code(s): K92.2 - Gastrointestinal hemorrhage, unspecified Status: Acute (2) Admission for fitting and adjustment of vascular catheter: Code(s): Z45.2 - Encounter for adjustment and management of vascular access device Status: Acute (3) Pneumothorax: Code(s): J93.9 - Pneumothorax, unspecified Status: Acute (4) Symptomatic anemia: Code(s): D64.9 - Anemia, unspecified Status: Acute (5) Pyloric stenosis in adult: Code(s): K31.1 - Adult hypertrophic pyloric stenosis Status: Acute (6) Parkinson disease: Code(s): G20 - Parkinson's disease Status: Acute Transfer Discharge Sum: Med Medications Active and Home Medications: Home Medications acetaminophen 500 mg tablet 1,000 mg PO Q6H PRN Mild Pain (1-3) Or Fever 10 days #60 tabs 01/12/22 [Rx Confirmed 02/12/23] aspirin 81 mg tablet,delayed release (Vianey Low Dose Aspirin) 81 mg PO DAILY 11/19/22 [History Confirmed 02/12/23] atorvastatin 80 mg tablet 80 mg PO QHS #90 tabs 12/02/22 [Rx Confirmed 02/12/23] carbidopa 25 mg-levodopa 100 mg tablet 1 tablet PO TID 01/28/23 [History Confirmed 02/12/23] cholecalciferol (vitamin D3) 1,250 mcg (50,000 unit) capsule 1,250 mcg PO WEEKLY 02/09/23 [History Confirmed 02/12/23] colchicine (gout) 0.6 mg tablet 0.6 mg PO DAILY PRN .Gout flare up. 02/09/23 [History Confirmed 02/11/23] docusate sodium 100 mg capsule (Dulcolax Stool Softener (docusate)) 100 mg PO DAILY PRN Constipation 02/09/23 [History Confirmed 02/12/23] furosemide 20 mg tablet 20 mg PO EVERY OTHER DAY 02/09/23 [History Confirmed 02/12/23] polyethylene glycol 3350 17 gram oral powder packet (Miralax) 17 g PO DAILY PRN Constipation 02/09/23 [History Confirmed 02/12/23] Active Medications Hydrocodone Bitart/Acetaminophen (Hydrocodone/Acetaminophen (*Crx) 5-325 Mg Tablet) 1 tab PO Q4H PRN PRN Reason: Pain Rated 4-6 Last Admin: 02/12/23 20:09 Dose: 1 tab Colchicine (Colchicine 0.6 Mg Tablet) 0.6 mg PO DAILY PRN PRN Reason: .Gout flare up. Docusate Sodium (Docusate Sodium 100 Mg Capsule) 100 mg PO DAILY PRN PRN Reason: Constipation Ergocalciferol (Ergocalciferol 50,000 Units Capsule) 50,000 units PO Maddox@0900 ANABELA Furosemide (Furosemide 20 Mg Tablet) 20 mg PO
--- NOTE | 2023-02-14 17:24 | PM.IMHP ---
H&P: HPI History of Present Illness Date/Time: 02/12/23 11:24 Chief Complaint: Chronic anemia, inadequate venous access Narrative: Marilyn Stephenson is a 82 year old female who was diagnosed with cervical cancer treated at [facility].? She completed chemotherapy and radiation therapy last April.? Since then, she has been troubled with anemia requiring frequent transfusions.? She has poor peripheral venous access and I am requested to place a Port-A-Cath by her primary care physician Dr. Mirza.? She is taken to surgery now for this purpose. Review of Systems Review of Systems: All systems reviewed & are unremarkable except as noted in HPI and below (HPI) FOR[facility]LY [facility] Past Medical History Medical History Cardiomyopathy Around 1999 the patient had a cardiomyopathy with EF down to 24%, due to an autoimmune problem, recovered. 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enign breast biopsy History of hysteroscopy (01/11/22) hscope D&C History of partial thyroidectomy History of tonsillectomy Internal carotid artery stent present Right 08/2022 complicated by an [place] and TIA Status post cataract extraction of both eyes with insertion of intraocular lens Family History Family History Father Heart disease Mother Breast cancer Social History Social History Social History: Her and her have been for 54 years. They have 1 son. 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 She is a former smoker and she does not use any alcohol marijuana or illicit drugs. Surrogate medical decision maker: Armando Stephenson, spouse. Code status: Full code. Smoking packs per day: 2.5 Smoking cigarettes per day: 50.0 Years smoked: 20 Smoking pack-years: 50.00 Smoking status: Former smoker Tobacco type: cigarettes Second hand tobacco smoke exposure: No Smoking end date: 06/23/87 Alcohol intake: current Drinks per week: 6 Alcohol use details: WINE DAILY Substance use: never Substance use type: does not use Lack of Transportation: No Lack of Food: Never True Current Housing: I Have Housing Concerned About Future Housing: No Difficulty Paying Gas/Electric Bills: YES Difficulty Paying for Meds: YES Currently Unemployed: No Education: Master's Degree or Higher Difficulty w/ Childcare or Family Care: No Living arrangements: with family Additional living arrangements comments: Patient lives with her in [place]. Occupation/Education: retired Spiritual care concerns: No Meds Home Medications and Allergies Home Medications Medication Instructions Recorded Confirmed Type acetaminophen 500 mg tablet 1,000 mg PO Q6H PRN Mild Pain 01/12/22 02/12/23 Rx (1-3) Or Fever 10 days #60 tabs aspirin 81 mg tablet,delayed 81 mg PO DAILY 11/19/22 02/12/23 History release (Vianey Low Dose Aspirin) atorvastatin 80 mg tablet 80 mg PO QHS #90 tabs 12/02/22 02/12/23 Rx carbidopa 25 mg-levodopa 100 mg 1 tablet PO TID
== END 2023-02-14 17:29 | disposition short-term general hospital (02) | DRG 200 ==
LOC: ANHIMU 17:48
PROVIDERS: Internal Medicine; Internal Medicine Gastroenterology; Internal Medicine Hematology & Oncology; Nurse Practitioner; Admitting Provider Surgery; PCP Family Medicine; Visit Provider Internal Medicine
PROC: 0W9930Z Drainage of Right Pleural Cavity with Drainage Device, Percutaneous Approach (ICD-10-PCS; principal; 2023-02-12 11:00)
PROC: 0DJ08ZZ Inspection of Upper Intestinal Tract, Via Natural or Artificial Opening Endoscopic (ICD-10-PCS; CPT 43235; principal; 2023-02-13 07:00)
PROC: 0DJ07ZZ Inspection of Upper Intestinal Tract, Via Natural or Artificial Opening (ICD-10-PCS; CPT 91110; 2023-02-13 07:00)
PROC: 02HV33Z Insertion of Infusion Device into Superior Vena Cava, Percutaneous Approach (ICD-10-PCS; principal; 2023-02-13 15:00)
DX: J95.811 Postprocedural pneumothorax (principal); D62 Acute posthemorrhagic anemia; K92.2 Gastrointestinal hemorrhage, unspecified; G61.0 Guillain-Barre syndrome; I43 Cardiomyopathy in diseases classified elsewhere; K31.1 Adult hypertrophic pyloric stenosis; L76.32 Postprocedural hematoma of skin and subcutaneous tissue following other procedure; C53.9 Malignant neoplasm of cervix uteri, unspecified; D63.1 Anemia in chronic kidney disease; D51.9 Vitamin B12 deficiency anemia, unspecified; E78.5 Hyperlipidemia, unspecified; E55.9 Vitamin D deficiency, unspecified; G20 Parkinson's disease; I48.0 Paroxysmal atrial fibrillation; I25.2 Old myocardial infarction; I13.10 Hypertensive heart and chronic kidney disease without heart failure, with stage 1 through stage 4 chronic kidney disease, or unspecified chronic kidney disease; I73.9 Peripheral vascular disease, unspecified; N18.32 Chronic kidney disease, stage 3b; I25.10 Atherosclerotic heart disease of native coronary artery without angina pectoris; I95.9 Hypotension, unspecified; Z90.49 Acquired absence of other specified parts of digestive tract; Z92.21 Personal history of antineoplastic chemotherapy; Z90.89 Acquired absence of other organs; Z92.3 Personal history of irradiation; Z86.718 Personal history of other venous thrombosis and embolism; Z86.73 Personal history of transient ischemic attack (TIA), and cerebral infarction without residual deficits; Z98.41 Cataract extraction status, right eye; Z98.42 Cataract extraction status, left eye; Z86.711 Personal history of pulmonary embolism; Z85.828 Personal history of other malignant neoplasm of skin; Z96.1 Presence of intraocular lens; Z95.828 Presence of other vascular implants and grafts; Z87.891 Personal history of nicotine dependence; Z79.82 Long term (current) use of aspirin
CPT/HCPCS: 36415; 36430; 71045; 71046; 71250; 74018; 77001; 80048; 80053; 81001; 82607; 82746; 83540; 83550; 83605; 83615; 83690; 83735; 83880; 84443; 84484; 85014; 85018; 85025; 85027; 85046; 85055; 85610; 85730; 86850; 86900; 86901; 86923; 91110; 93005; 96360; 96361; 99285; C1752; A9270; C1726; C1729; C1750; C1769; C1788; G0378; J0690; J1644; J1756; J1885; J2270; J2371; J2405; J2704; J3010; J3420; J7030; J7040; J7050; J7120; P9016

== ENCOUNTER 2023-03-05 09:16 | Outpatient (CLI) | payer OTHER, SELFPAY ==
[2023-03-05 09:44] LABS: Hematocrit 26.8 % (37.0-47.0); Mean Corpuscular HGB Conc 29.9 g/dl (32-36); Mean Corpuscular Hemoglobin 31.7 pg (26-34); Mean Corpuscular Volume 106.3 fl (80-100); Mean Platelet Volume 9.1 fl (7.4-10.4); Platelet Count Result 207 k/mm3 (150-375); Red Blood Count 2.52 M/mm3 (4.2-5.4); Red Cell Distribution Width 18.2 % (11.5-14.5); White Blood Count 5.9 K/mm3 (4.5-10.0)
== END 2023-03-05 09:17 | disposition home or self-care (01) ==
LOC: ANHLAB 09:18
PROVIDERS: PCP Family Medicine; Visit Provider Internal Medicine Hematology & Oncology
DX: D50.0 Iron deficiency anemia secondary to blood loss (chronic) (principal)
CPT/HCPCS: 36415; 85027

== ENCOUNTER 2023-03-11 07:25 | Outpatient (RCR) | payer OTHER, SELFPAY ==
[2023-03-11] VITALS (10 sets, daily range): BP systolic 84–148; BP diastolic 59–87; PULSE 76–88; RESP 15–18; TEMP 36.2–36.6; O2SAT 96–100
[2023-03-11] MEDS: diphenhydrAMINE HCl CAP 25 MG CAPSULE PO (09:07)
[2023-03-11] MEDS: ACETAMINOPHEN 325 MG TABLET 650 MG PO (09:08)
[2023-03-11] MEDS: SODIUM CHLORIDE 0.9% IV 250 ML 30 ML IV CONT (09:09)
[2023-03-11] MEDS: FUROSEMIDE INJ 40 MG/4 ML VIAL 20 MG IV PUSH (12:24)
== END 2023-03-31 23:59 | disposition home or self-care (01) ==
LOC: ANHCPCTRAN 07:25
PROVIDERS: PCP Family Medicine; Visit Provider Internal Medicine Hematology & Oncology
DX: D64.9 Anemia, unspecified (principal)
CPT/HCPCS: 36415; 36430; 86850; 86900; 86901; 86923; A9270; J1940; J7050; P9016